=== PATIENT | female | born 1935 | race Caucasian/White ===

== ENCOUNTER 2016-11-04 12:45 | Inpatient (IN) | payer MEDICARE, OTHER ==
[~2016-11-04] VITALS: Ht 162.5 cm; Wt 68.9 kg
--- NOTE | ~2016-11-04 | CON ---
[place], [place] REPORT OF CONSULTATION NAME: ISABELLA BAH UNIT #: [id number] ROOM: 406 DOCTOR: JAVON MCCRAY MD,STACY BIRTHDATE: [birth year] DOS: 11/05/2016 The patient ____ as per consultation and transferred to another facility before assessment on 11/05/2016. STACY ALEJANDRO MD CM:CONSTR:REPORT OF CONSULTATION 0931 11/05/16 1034 interface
[~2016-11-04 12:45] MED LIST: AUGMENTIN 875 M1 TAB PO; BENADRYL50 MG PO; DULE1ARO INH; DUONEB 3 MG/3 ML3 M1 NEB; FUROSEMIDE40 MG PO; KLOR-CON SPRIN10 MEQ PO; LEVOTHYROXINE0.1 MG PO; LINZESS145 MC1 PO; LIPITOR20 MG PO; LISINOPRIL10 M1 PO; MEDROL DOSEPAK4 MG PO; METOPROLOL TART50 M1 PO; NORVASC5 MG PO; PREDNISONE10 MG PO; SERTRALINE HYDR50 MG PO; SIMVASTATIN40 MG PO; TOPROL XL100 MG PO; VITAMIN D32000 UNIT PO; XARE20MG PO
[2016-11-04] MEDS ORDERED: METOPROLOL SUC100 M1 PO (12:58)
[2016-11-04 13:16] LABS: BASO % 0.4 % (0.0-1.0); EOS % 0.3 % (1.0-4.0); HEMATOCRIT 41.6 % (37.0-47.0); HEMOGLOBIN 13.4 g/dl (12.0-16.0); LYMPH # 1.4 10*3/uL (1.3-4.4); LYMPH % 13.8 % (27.0-41.0); MEAN CELL VOLUME 98.3 fl (81.0-99.0); MEAN CORPUSCULAR HGB 31.7 pg (27.0-31.0); MEAN CORPUSCULAR HGB CONC 32.2 g/dl (33.0-37.0); MEAN PLATELET VOLUME 10.1 fl (9.6-12.3); NEUT # 7.5 10*3/uL (2.3-7.9); NEUT % 75.3 % (47.0-73.0); PLATELET COUNT AUTOMATED 249 10*3/uL (130-400); RED BLOOD COUNT 4.23 10*6/uL (4.10-5.10)
[2016-11-04 13:25] LABS: INTERNATIONAL NORM RATIO 1.2 (2.0-3.5); PROTHROMBIN TIME 13.4 SECONDS (9.0-12.4)
[2016-11-04 13:33] LABS: ALBUMIN 3.4 gm/dl (3.1-4.5); ALKALINE PHOSPHATASE 63 U/L (45-117); BUN 12 mg/dl (7-24); C-REACTIVE PROTEIN 7.28 MG/DL (0-0.3); CARBON DIOXIDE 25 mmol/L (21-32); CHLORIDE 104 mmol/L (98-107); CKMB 3.6 ng/ml (0.5-3.6); CPK 130 U/L (26-192); EST GLOM FILT AFRICAN AMERICAN > 60 ml/min; GLUCOSE 138 mg/dL (65-99); POTASSIUM 2.8 mmol/L (3.5-5.1); SGOT/AST 25 IU/L (3-35); SGPT/ALT 16 U/L (12-78); SODIUM 144 mmol/L (136-145); TOTAL PROTEIN 6.8 gm/dL (6.4-8.2)
[2016-11-04 13:36] LABS: TROPONIN I 0.241 ng/ml (<0.045)
[2016-11-04 15:13] LABS: LA>2 REFLEX 2 HR DRAW NOW
[2016-11-04 15:56] LABS: LA>2 RFLX FOLLOW UP AT 2 HRS 2.5 mmol/L (0.4-2.0)
[2016-11-04 17:49] LABS: LA>2 REFLEX 4 HR DRAW NOW
[2016-11-04 18:20] LABS: CKMB 3.2 ng/ml (0.5-3.6)
[2016-11-04 18:21] LABS: TROPONIN I 0.219 ng/ml (<0.045)
[2016-11-04] MEDS ORDERED: LASIX40 MG PO (18:30)
[2016-11-05 00:46] LABS: CKMB 4.2 ng/ml (0.5-3.6)
[2016-11-05 00:50] LABS: TROPONIN I 0.129 ng/ml (<0.045)
== END 2016-11-05 01:34 | disposition short-term general hospital (02) | DRG 871 ==
LOC: ED 12:45 → EDHOLD 14:26 → 4E 14:47
PROVIDERS: Emergency Medicine; Hospitalist
DX: A41.9 Sepsis, unspecified organism (principal); J96.00 Acute respiratory failure, unspecified whether with hypoxia or hypercapnia; I61.8 Other nontraumatic intracerebral hemorrhage; I11.0 Hypertensive heart disease with heart failure; J18.9 Pneumonia, unspecified organism; S09.90XA Unspecified injury of head, initial encounter; I50.9 Heart failure, unspecified; J44.0 Chronic obstructive pulmonary disease with (acute) lower respiratory infection; J44.1 Chronic obstructive pulmonary disease with (acute) exacerbation; I48.0 Paroxysmal atrial fibrillation; R65.20 Severe sepsis without septic shock; R29.6 Repeated falls; Z96.1 Presence of intraocular lens; E87.6 Hypokalemia; E78.5 Hyperlipidemia, unspecified; Z90.710 Acquired absence of both cervix and uterus; Z98.49 Cataract extraction status, unspecified eye; Z87.891 Personal history of nicotine dependence; Z81.1 Family history of alcohol abuse and dependence; Z83.3 Family history of diabetes mellitus; Z79.899 Other long term (current) drug therapy; I25.2 Old myocardial infarction

== ENCOUNTER → 2017-01-05 | Outpatient (CLI) | payer MEDICARE, OTHER ==
[~2017-01-05] MED LIST changes: +LASIX40 MG PO; +METOPROLOL SUC100 M1 PO
== END | disposition home or self-care (01) ==
LOC: CT 12:36
DX: K40.90 Unilateral inguinal hernia, without obstruction or gangrene, not specified as recurrent (principal); K42.9 Umbilical hernia without obstruction or gangrene; I51.7 Cardiomegaly; Z90.710 Acquired absence of both cervix and uterus

== ENCOUNTER → 2017-02-02 | Outpatient (CLI) | payer MEDICARE, OTHER | END | disposition home or self-care (01) | LOC: US 12:23 | DX: N28.1 Cyst of kidney, acquired (principal); N32.89 Other specified disorders of bladder ==

== ENCOUNTER → 2017-02-04 | Outpatient (CLI) | payer MEDICARE, OTHER | END | disposition home or self-care (01) | LOC: CARD 15:43 | DX: I08.1 Rheumatic disorders of both mitral and tricuspid valves (principal); I42.9 Cardiomyopathy, unspecified; I48.0 Paroxysmal atrial fibrillation; I21.4 Non-ST elevation (NSTEMI) myocardial infarction; I49.9 Cardiac arrhythmia, unspecified ==

== ENCOUNTER → 2017-03-24 | Outpatient (CLI) | payer MEDICARE, OTHER ==
[2017-03-24 13:58] LABS: BILIRUBIN NEGATIVE (NEGATIVE); BLOOD TRACE-INTACT (NEGATIVE); CLARITY CLEAR (CLEAR); COLOR YELLOW (YELLOW); GLUCOSE NEGATIVE (NEGATIVE); KETONE TRACE (NEGATIVE); LEUKO ESTERASE NEGATIVE (NEGATIVE); NITRITE NEGATIVE (NEGATIVE); PROTEIN TRACE (NEGATIVE); UROBILINOGEN 0.2 E.U./dl (0.2-1.0)
[2017-03-24 14:07] LABS: BASO # 0.1 10*3/uL (0.0-0.1); BASO % 0.8 % (0.0-1.0); EOS # 0.3 10*3/uL (0.0-0.4); EOS % 2.3 % (1.0-4.0); HEMATOCRIT 41.9 % (37.0-47.0); HEMOGLOBIN 13.4 g/dl (12.0-16.0); IG # 0.1 10*3/uL (0.0-0.1); LYMPH # 3.1 10*3/uL (1.3-4.4); LYMPH % 28.8 % (27.0-41.0); MEAN CELL VOLUME 98.6 fl (81.0-99.0); MEAN CORPUSCULAR HGB 31.5 pg (27.0-31.0); MEAN PLATELET VOLUME 10.1 fl (9.6-12.3); MONO # 0.8 10*3/uL (0.1-1.0); MONO % 7.3 % (3.0-9.0); NEUT # 6.4 10*3/uL (2.3-7.9); NEUT % 60.1 % (47.0-73.0); PLATELET COUNT AUTOMATED 293 10*3/uL (130-400); RED BLOOD COUNT 4.25 10*6/uL (4.10-5.10); RED CELL DISTRI WIDTH 14.6 % (0-14.5); WHITE BLOOD COUNT 10.7 10*3/uL (4.8-10.8)
[2017-03-24 14:09] LABS: BACTERIA TRACE; RBC 0-2 rbc/hpf (0-2); WBC 0-2 wbc/hpf (0-5)
[2017-03-24 14:16] LABS: URINE TP/CRE RATIO 0.1 (<0.21)
[2017-03-24 14:28] LABS: ALBUMIN 3.6 gm/dl (3.1-4.5); BILIRUBIN, TOTAL 0.5 mg/dl (0.2-1.0); MAGNESIUM 2.2 mg/dL (1.5-2.1); PHOSPHOROUS 2.9 mg/dL (2.5-4.9); TOTAL PROTEIN 7.3 gm/dL (6.4-8.2); URIC ACID 4.2 mg/dL (2.6-6.0)
[2017-03-24 14:56] LABS: VITAMIN D, 25-HYDROXY 21.7 ng/mL (30-100)
[2017-03-24 14:57] LABS: PTH INTACT 81.1 pg/mL (14.0-72.0)
== END | disposition home or self-care (01) ==
LOC: LAB 13:22
PROVIDERS: Internal Medicine Nephrology
DX: I12.9 Hypertensive chronic kidney disease with stage 1 through stage 4 chronic kidney disease, or unspecified chronic kidney disease (principal); N18.3 Chronic kidney disease, stage 3 (moderate); E87.6 Hypokalemia; N17.9 Acute kidney failure, unspecified

== ENCOUNTER → 2017-12-30 | Day surgery (SDC) | payer MEDICARE, OTHER ==
[2017-12-27 11:53] LABS: BILIRUBIN NEGATIVE (NEGATIVE); BLOOD NEGATIVE (NEGATIVE); CLARITY CLOUDY (CLEAR); COLOR YELLOW (YELLOW); GLUCOSE NEGATIVE (NEGATIVE); KETONE TRACE (NEGATIVE); LEUKO ESTERASE 1+ (NEGATIVE); NITRITE POSITIVE (NEGATIVE); PH 5.5 (5.0-9.0); SPECIFIC GRAVITY 1.025 (1.005-1.030); UROBILINOGEN 0.2 E.U./dl (0.2-1.0)
[2017-12-27 11:56] LABS: BASO # 0.1 10*3/uL (0.0-0.1); BASO % 0.6 % (0.0-1.0); EOS # 0.3 10*3/uL (0.0-0.4); EOS % 3.1 % (1.0-4.0); HEMATOCRIT 42.6 % (37.0-47.0); HEMOGLOBIN 13.4 g/dl (12.0-16.0); LYMPH # 2.2 10*3/uL (1.3-4.4); LYMPH % 24.7 % (27.0-41.0); MEAN CELL VOLUME 99.1 fl (81.0-99.0); MEAN CORPUSCULAR HGB 31.2 pg (27.0-31.0); MEAN CORPUSCULAR HGB CONC 31.5 g/dl (33.0-37.0); MONO # 0.6 10*3/uL (0.1-1.0); MONO % 7.1 % (3.0-9.0); NEUT # 5.6 10*3/uL (2.3-7.9); NEUT % 64.3 % (47.0-73.0); PLATELET COUNT AUTOMATED 288 10*3/uL (130-400); RED CELL DISTRI WIDTH 13.8 % (0-14.5); WHITE BLOOD COUNT 8.7 10*3/uL (4.8-10.8)
[2017-12-27 12:18] LABS: POTASSIUM 4.2 mmol/L (3.5-5.1)
[2017-12-27 12:44] LABS: BACTERIA 4+; WBC 16-20 wbc/hpf (0-5)
[~2017-12-30] VITALS: Ht 162.5 cm; Wt 70.3 kg
[~2017-12-30] MED LIST changes: +AMIODARONE HCL200 MG PO; +APRESOLINE25 MG PO; +ASPIRIN81 M1 PO; +BREO ELLIPTA 11 EACH INH; +LISINOPRIL20 MG PO; +NORCO 5-325 TA1 EACH PO; +OMEPRAZOLE D/R20 MG PO; +PROAIR HFA8.5 GM INH; +VITAMIN C500 M4 PO; +VITAMIN D35000 UNIT PO
--- NOTE | ~2017-12-30 | PROC NOTE ---
[place], [place] PROCEDURE NOTE [id number] UNIT #: [id number] ROOM: DOCTOR: REMY TRIPLETT MD BIRTHDATE: [birth year] DOS: 12/30/2017 PREOPERATIVE DIAGNOSIS: Right forearm skin lesion. POSTOPERATIVE DIAGNOSIS: Right forearm skin lesion. PROCEDURE: Excision of right forearm skin lesion. SURGEON: Remy Triplett MD INSPECTOR RAG SORTING: CARO. ANESTHESIA: MAC with local. INDICATIONS: This is an 82-year-old lady who has got a long-standing lesion on the right forearm, just proximal to the wrist joint, who is here for the above-mentioned procedure. The procedure and its complications were explained to the patient in detail preoperatively. Complications that were discussed included but were not limited to bleeding, infection, hematoma/seroma/abscess formation and damage to underlying vital structures. She agreed to proceed. DESCRIPTION OF PROCEDURE: After identifying the patient, the patient was brought to the operating suite and laid in the supine position. After IV sedation was administered, a timeout procedure was called and local anesthesia was infiltrated in the line of the proposed incision. Prior to all this incision was marked with at least 1 to 2 mm margin around the lesion. Skin incision was made and deepened in layers. The lesion was excised in its entirety and sent for histopathological diagnosis. After adequate orientation, the specimen was performed. Thereafter, the closure of the skin was done in a transverse fashion. This was done by closing the subcutaneous tissue with 3-0 Vicryl in an interrupted fashion and the skin edges were approximated with the help of 4-0 nylon in an interrupted mattress fashion. Dressing was placed. The patient tolerated the procedure well and was brought back to the recovery room in stable fashion. There were no complications. Dr. Remy Triplett, the attending physician, was present throughout the operating case. Remy Triplett MD CM:PROCNOTE:PROCEDURE NOTE [id number] REMY TRIPLETT MD
[2017-12-30 10:15] VITALS: BP 164/61
[2017-12-30 11:34] VITALS: BP 138/66
[2017-12-30 11:45] VITALS: BP 130/82
[2017-12-30 12:04] VITALS: BP 138/66
== END | disposition home or self-care (01) ==
LOC: SDC 12-27 08:45
PROVIDERS: Surgery
DX: C44.612 Basal cell carcinoma of skin of right upper limb, including shoulder (principal); I25.2 Old myocardial infarction; I10 Essential (primary) hypertension; J44.9 Chronic obstructive pulmonary disease, unspecified; K21.9 Gastro-esophageal reflux disease without esophagitis; F41.9 Anxiety disorder, unspecified; F32.9 Major depressive disorder, single episode, unspecified; Z87.891 Personal history of nicotine dependence; Z90.710 Acquired absence of both cervix and uterus; Z79.899 Other long term (current) drug therapy; E07.89 Other specified disorders of thyroid; E78.00 Pure hypercholesterolemia, unspecified

== ENCOUNTER → 2018-02-11 | Outpatient (CLI) | payer MEDICARE, OTHER ==
[2018-02-11 11:14] LABS: BASO # 0.1 10*3/uL (0.0-0.1); BASO % 0.7 % (0.0-1.0); EOS # 0.3 10*3/uL (0.0-0.4); EOS % 2.7 % (1.0-4.0); HEMATOCRIT 39.5 % (37.0-47.0); HEMOGLOBIN 12.5 g/dl (12.0-16.0); LYMPH # 2.3 10*3/uL (1.3-4.4); LYMPH % 23.4 % (27.0-41.0); MEAN CELL VOLUME 98.8 fl (81.0-99.0); MEAN CORPUSCULAR HGB 31.3 pg (27.0-31.0); MEAN CORPUSCULAR HGB CONC 31.6 g/dl (33.0-37.0); MEAN PLATELET VOLUME 10.4 fl (9.6-12.3); MONO # 0.8 10*3/uL (0.1-1.0); MONO % 8.3 % (3.0-9.0); NEUT # 6.2 10*3/uL (2.3-7.9); NEUT % 64.4 % (47.0-73.0); PLATELET COUNT AUTOMATED 281 10*3/uL (130-400); RED CELL DISTRI WIDTH 14.1 % (0-14.5); WHITE BLOOD COUNT 9.6 10*3/uL (4.8-10.8)
[2018-02-11 11:38] LABS: ALBUMIN 3.8 gm/dl (3.1-4.5); CREATININE 1.9 mg/dL (0.55-1.02); TOTAL PROTEIN 7.4 gm/dL (6.4-8.2)
[2018-02-11 11:44] LABS: THYROID STIM HORMONE (HS) 1.74 uIU/ml (0.358-4.75)
== END | disposition home or self-care (01) ==
LOC: LAB 10:42
PROVIDERS: Family Medicine
DX: E78.00 Pure hypercholesterolemia, unspecified (principal); F03.90 Unspecified dementia, unspecified severity, without behavioral disturbance, psychotic disturbance, mood disturbance, and anxiety

== ENCOUNTER → 2018-02-17 | Outpatient (CLI) | payer MEDICARE, OTHER | END | disposition home or self-care (01) | LOC: RAD 15:23 | DX: J44.1 Chronic obstructive pulmonary disease with (acute) exacerbation (principal) ==

== ENCOUNTER 2018-04-24 11:20 | Inpatient (IN) | payer MEDICARE, OTHER ==
[2018-04-24] VITALS (28 sets, daily range): BP systolic 80–150; BP diastolic 27–100
[~2018-04-24] VITALS: Ht 160 cm; Wt 65.8 kg
--- NOTE | ~2018-04-24 | EKG ---
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
--- NOTE | ~2018-04-24 | PR ---
[place], [place] PROGRESS NOTE NAME: [id number] UNIT #: [id number] ROOM: [facility] DOCTOR: CORNELIO SUAREZ MD BIRTHDATE: [birth year] DOS: 04/25/2018 SUBJECTIVE: The patient was seen today on 04/25/2018 at her bedside in the intensive care unit. She is an 82-year-old woman, who presented to the hospital after a fall with weakness and increased dyspnea, lasting the last 3 days. The patient was tachypneic and dyspneic on admission. She was also noted to be markedly bradycardic with a heart rate of about 30. Her rhythm appeared to be junctional. Atropine did not provide any relief. She was also noted to be in acute renal failure with a potassium of 6. She was admitted to the hospital and treated with BiPAP for her tachypnea and dyspnea. Her potassium was treated with glucose, insulin, bicarbonate and calcium. The bradycardia was treated with dobutamine. I felt that the bradycardia was probably due to a combination of her chronic amiodarone therapy along with beta tabatha therapy as well as her conduction system disease and possibly exacerbated by her acute renal failure. With dobutamine, her heart rate narendra to the 40 and 50 range and she remained hemodynamically stable, although her renal functions did not improve. This morning, 24 hours after her last dose of beta tabatha, her heart rate has improved to about 80. She was evaluated by Nephrology, who believed that she may require acute dialysis and therefore, she is being transferred to [facility] for further care. PHYSICAL EXAMINATION: VITAL SIGNS: Today, her pulse is 78 and regular, blood pressure is 122/65. She is afebrile. NECK: Supple. She has mild jugular distention with hepatojugular reflux. Carotids are full. LUNGS: Respirations are unlabored. She has decreased breath sounds at the bases. HEART: Has a regular rhythm. ABDOMEN: Soft and normally active. EXTREMITIES: Showed trace ankle edema. IMPRESSION: 1. Severe bradycardia, likely due to the combination of amiodarone and beta tabatha therapies, exacerbated by acute renal failure and hyperkalemia. 2. Metabolic acidosis. 3. Acute renal failure. 4. Hyperkalemia. 5. History of paroxysmal atrial fibrillation. 6. History of essential hypertension. 7. Dementia. PLAN: We will wean her off the dobutamine as tolerated by her heart rate. She is being transferred to [facility] for further management of her renal problems. For now, I would withhold beta blockers and amiodarone. We thank the hospitalist physicians for asking our advice regarding her care. [place], [place] PROGRESS NOTE NAME: ISABELLA BAH UNIT #: [id number] ROOM: [facility] DOCTOR: CORNELIO SUAREZ MD BIRTHDATE: [birth year] CORNELIO SUAREZ MD CM:PNTRANS [id number] CORNELIO SUAREZ MD 04/25/18 1731 interface
--- NOTE | ~2018-04-24 | CON ---
[place], [place] REPORT OF CONSULTATION NAME: ISABELLA BAH UNIT #: [id number] ROOM: [facility] DOCTOR: STACY HARRIS MD BIRTHDATE: [birth year] DOS: 04/24/2018 PULMONARY CONSULTATION, EVALUATION AND MANAGEMENT CONSULTATION REQUESTED BY: Dr. Dean, Hospitalist Services. REASON FOR CONSULTATION: To assess the patient for recurrent acute respiratory failure. HISTORY OF PRESENT ILLNESS: This is an 82-year-old white female patient, who was admitted to the hospital under care of Dr. Dean. The patient brought to the hospital with the symptoms of having generalized weakness and fatigue. The patient was noted with symptoms of shortness of breath. The patient was noted with change in mental status as well. Arterial blood gas that was done in the Emergency Room. The patient stated on the BiPAP, setting of 12/. The patient started to have improvement in the mentation. She was noted awake and alert this morning. The patient admitted to Intensive Care Unit. The patient was also noted to have profound bradycardia in the Emergency Room as well. She has been noted with use of beta blockers as well as the amiodarone. She has not been reporting any symptoms of chest pain. The patient denies symptoms of wheezing. There were symptoms of hemoptysis. REVIEW OF SYSTEMS: CONSTITUTIONAL SYMPTOMS: Fatigue and tiredness noted. Absent of fever or chills. EYES: Denies any burning, redness, or tenderness. EARS, NOSE, THROAT SYMPTOMS: Denies sore throat, hoarseness, otalgia, postnasal drainage or epistaxis. CARDIOVASCULAR: Denies anginal pain, edema or pain of lower extremities. GASTROINTESTINAL: Denies dysphagia, nausea, vomiting, diarrhea, abdominal pain, hematemesis, melena, or hematochezia. GENITOURINARY: No dysuria, suprapubic pain or hematuria. MUSCULOSKELETAL: No acute joint pain, redness, tenderness, or dysphagia. CENTRAL NERVOUS SYSTEM: Denies dizziness, headache, diplopia, or syncopal episodes. Remaining systems were reviewed, they were noted all negative. PAST MEDICAL HISTORY: Noted with the recent hospitalization. The patient is hospitalized. Discharged the patient on 03/30/2018. The patient was treated in this hospital, at that time for acute tracheobronchitis with exacerbation of COPD and bronchial asthma at that time. Past medical history for the patient was known with history of: 1. Bronchial asthma. 2. COPD. 3. History of hypothyroidism. 4. Non-ST segment elevation myocardial infarct in 2017. 5. History of essential hypertension. 6. Chronic atrial fibrillation. 7. History of chronic constipation. [place], [place] REPORT OF CONSULTATION NAME: ISABELLA BAH UNIT #: [id number] ROOM: [facility] DOCTOR: JAVON MCCRAY MD,STACY BIRTHDATE: [birth year] 8. Past history of pneumonia as well. 9. Gastroesophageal reflux. 10. General anxiety disorder and depression. PAST SURGICAL HISTORY: 1. Cardiac catheterization. 2. Fibrobronchoscopy that was done in 03/2018 admission. That was a therapeutic bronchoscopy. SOCIAL HISTORY: The patient is , has 2 children, lives at home, has a known history of tobacco use since teenager, pack of cigarettes per day until 30 years ago. No history of alcohol use or illicit drug use. FAMILY HISTORY: The patient's father at 64 years old, complication of chronic alcohol use. Mother at age of 62 years with complication of accident. CURRENT MEDICATIONS: The patient was noted with use of Protonix, dobutamine just ordered for this patient, IV Solu-Medrol 60 mg every 8 hours, DuoNeb every 4 hours. DRUG ALLERGIES: The patient noted for no known drug allergies. PHYSICAL EXAMINATION: GENERAL: An 82-year-old female, who has been noted quite comfortable at this time with use of the BiPAP in the Intensive Care Unit. Height of 5 feet 2 inches, weight of 145 pounds. VITAL SIGNS: Vital signs on the patient which have been recorded shows the respiratory rate noted at 31-20. The heart rate 42-48, blood pressure 150/100 and 136/61. Pulse oxygen saturation of the patient was noted on the BiPAP 40% oxygen as 99% saturation. The pulse ox saturation noted on 4 liters nasal cannula as 88% saturation. HEENT: Examination shows head was atraumatic. Eyes nonicterus. NECK: Supple. CARDIOVASCULAR: S1, S2 is audible with bradyarrhythmia. LUNGS: Noted with general reduction of the breath sounds bilaterally. ABDOMEN: Soft, flat, nontender. Bowel sounds present. EXTREMITIES: Without any acute edema. CENTRAL NERVOUS SYSTEM: No focal deficit. SKIN: Visible skin, no lesions or rashes. LABORATORY DATA: Arterial blood gas 40% oxygen, PEEP of 7.27, pCO2 of 35, pO2 of 149. There were done on the BiPAP 40% oxygen. CBC of 04/24/2018, WBC count 12.3, hemoglobin 9.5, hematocrit 30.9, platelet count 197,000. PT/INR 1.3, PTT of 32.3. Lactic acid noted 1.6. CMP of the patient of 04/24/2018, BUN 62, creatinine 4.67. Glucose 149. Potassium 6.0. CO2 of 18. The chest x-ray one view that was done in the Emergency Room was also reviewed. Appears to be normal chest x-ray except hyperinflation. There were no acute pulmonary infiltration. TSH level noted as normal. Urinalysis that was done noted 2+ bacteria. [place], [place] REPORT OF CONSULTATION NAME: ISABELLA BAH UNIT #: [id number] ROOM: [facility] DOCTOR: STACY HARRIS MD BIRTHDATE: [birth year] IMPRESSION: 1. The patient developed acute kidney injury at this time. Possibility of prerenal, acute tubular necrosis would be considered. 2. The patient with acute bradyarrhythmia, combination of the patient's home medication with use of beta blockers and amiodarone and possibly related to hyperkalemia combination. The patient has been noted hemodynamically stable, does not show signs of hypotension. Certainly rule out a myocardial infarction because of bradyarrhythmia as well. 3. The patient with chronic obstructive pulmonary disease with acute exacerbation. 4. Acute respiratory failure. The patient with hypoxia and metabolic acidosis. Metabolic acidosis resulting from acute kidney injury as well. 5. Possible urinary tract infection. There were no signs of active severe sepsis noted; however, urinary tract infection would be considered and to be excluded with the cultures. 6. History of known chronic obstructive pulmonary disease and bronchial asthma. PLAN OF MANAGEMENT: The patient has already been managed for hyperkalemia, received the D50 insulin as well as calcium chloride in the Emergency Room. She has been just started on dobutamine by Dr. Lundy. Repeat BMP was ordered for the patient to reassess the change in potassium. Monitor kidney functions. Nephrology service consideration will be obtained as well. Deep venous thrombosis prophylaxis. The patient will be given in the form of the heparin sulfate. Reduce the dose of Solu-Medrol for the patient at this time as the high dose is not necessary because of lack of significant severe wheezing. Antibiotic adjustment has been ordered and discontinuation of the antibiotic, but start the patient on Rocephin for the gram-negative coverage. The patient with urinary tract infection, on doxycycline for gram-positive coverage. Other supportive therapy, plan of management and care plan and other treatment and therapy to be continued accordingly. Continue to monitor bradyarrhythmia unless hemodynamic compromise and conservative treatment will be continued. Certainly, myocardial infarction would be excluded. The patient has already been assessed and orders were placed by Dr. Lundy for the medical record of bradyarrhythmias. Follow the recommendation by Dr. Lundy. Assessment and management was also discussed with Dr. Dean primary care attending of this patient. Other supportive plan of management to be continued for the patient as well. Additional treatment changes will be made based on progression of the illness. Thanks for allowing me to participate in the care of this patient. [place], [place] REPORT OF CONSULTATION NAME: ISABELLA BAH UNIT #: [id number] ROOM: [facility] DOCTOR: STACY HARRIS MD BIRTHDATE: [birth year] STACY ALEJANDRO MD CM:CONSTR:REPORT OF CONSULTATION 1427 05/02/18 1102 interface
--- NOTE | ~2018-04-24 | PR ---
[place], [place] PROGRESS NOTE NAME: ISABELLA BAH UNIT #: [id number] ROOM: [facility] DOCTOR: JAVON MCCRAY MD,STACY BIRTHDATE: [birth year] DOS: 04/25/2018 PULMONARY PROGRESS NOTE SUBJECTIVE: She has been noted comfortable at this time, resting in the bed, noted with intermittent wheezing with nonproductive cough and shortness of breath. Using the BiPAP as ordered, suggestive of medical management of respiratory failure. Denies symptoms of hemoptysis, fever or chills. She denies symptoms of nausea, vomiting or headache. General weakness, fatigue were noted. She has been continued on intravenous dobutamine and the medication such a beta tabatha, amiodarone remains on hold. The bradyarrhythmia seemed to be better. OBJECTIVE: VITAL SIGNS: Normal temperature, respiratory rate 22, heart rate of 78. At the present time with a normal sinus rhythm. The blood pressure noted 130/51 to 122/65. Pulse ox saturation on 3 liters nasal cannula 95% saturation. HEENT: Examination shows head was atraumatic. Eyes nonicterus. NECK: Supple. CARDIOVASCULAR: S1, S2 is audible. LUNGS: Without any crackles. Decreased breath sounds of the patient and mild to moderate expiratory wheezing. ABDOMEN: Soft, nontender. EXTREMITIES: Shows no significant edema. SKIN: Visible skin, no lesions or rashes. CENTRAL NERVOUS SYSTEM: Cranial nerves 2-12 intact. No focal deficit. MUSCULOSKELETAL: Without any acute deformities. LABORATORY DATA: CBC today, hemoglobin 10.5, hematocrit 25.2, platelet count normal, WBC count normal, 95% segmented neutrophils. The CMP of the patient this morning, BUN 62, creatinine 4.74. Glucose 104. Potassium is decreased to 5.5. CO2 was noted as 20. IMPRESSION: 1. Acute hyperkalemia with the bradyarrhythmia, multifactorial secondary to beta blockers and hyperkalemia. 2. Severe acute progressive acute kidney injury as well. 3. Anemia without evidence of active gastrointestinal bleeding. 4. The patient with acute exacerbation of chronic obstructive pulmonary disease. 5. Acute on chronic hypercapnic and hypoxic respiratory failure as well. The arterial blood gas on 4 liters today were noted, pH of 7.30, pCO2 72, pO2 150. PLAN OF MANAGEMENT: Continuation of bronchodilators, oxygen supplementation, Solu-Medrol 30 mg b.i.d. as previously. Bronchodilators and the antibiotics. Other additional treatment changes made based on progression of illness. The patient has been advised for transfer to [facility] [place] about the Nephrology services. The arrangement of transfer are noted in progress. In the meantime, no other change in the treatment needs to be done. The dobutamine was planned to be gradually weaned off today per Cardiology Services because of the [place], [place] PROGRESS NOTE NAME: ISABELLA BAH UNIT #: [id number] ROOM: [facility] DOCTOR: STACY HARRIS MD BIRTHDATE: [birth year] improvement in the bradyarrhythmia. STACY ALEJANDRO MD CM:PNTRANS 1525 [id number] STACY MCCRAY MD 04/25/18 1746 interface
--- NOTE | ~2018-04-24 | EKG ---
[place], [place] ELECTROCARDIOGRAM REPORT NAME: ISABELLA BAH UNIT #: [id number] ROOM: [facility] DOCTOR: DEACON DRAFT REPORT BIRTHDATE: [birth year] [facility] Test Date: 2018-04-24 Test Time: 11:32:20 Pat Name: ISABELLA BAH Department: Room: 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1935 Requested By: MELANIE EVANGELISTA Order Number: [id number] Reading MD: Chapito Lundy MD Measurements Intervals [place] Rate: 32 P: PA: QRS: 92 QRSD: 118 T: 46 QT: 633 QTc: 462 Interpretive Statements Junctional rhythm with underlying atrial fibrillation Nonspecific intraventricular conduction delay Compared to ECG 03/31/2018 11:58:30 Junctional rhythm now present Sinus rhythm no longer present Left ventricular hypertrophy no longer present Early repolarization no longer present Electronically Signed On 04-24-2018 13:48:50 PDT by Chapito Lundy MD CM:EKGRPT:ELECTROCARDIOGRAM REPORT [id number] [id number] MELANIE WORTHY DRAFT REPORT MELANIE EVANGELISTA MD
--- NOTE | ~2018-04-24 | CON ---
[place], [place] REPORT OF CONSULTATION NAME: ISABELLA BAH UNIT #: [id number] ROOM: [facility] DOCTOR: CORNELIO SUAREZ MD BIRTHDATE: [birth year] DOS: 04/24/2018 CARDIOLOGY CONSULTATION REASON FOR CONSULTATION: Bradycardia. HISTORY OF PRESENT ILLNESS: This is one of multiple hospitalizations for the patient, who is an 82-year-old woman. I saw her at her bedside in the intensive care unit today 04/24/2018. She presented to the hospital with a fall, weakness and increased dyspnea for the last 3 days. The patient was very tachypneic on admission to the ER. She was also noted to be markedly bradycardic with a pulse of around 30. Her rhythm appeared to be junctional or possibly atrial fibrillation with a very slow ventricular response. She was given several doses of atropine without much effect. She was also noted to be in renal failure with potassium of 6, BUN of 62 and a creatinine of 4.67. This was a marked increase from her BUN of 26 on 04/01/2018 and creatinine of 1.20 on 04/01/2018. The patient is currently on a BiPAP treatment and is feeling better. She is confused and somewhat restless. She denies chest pain or palpitations. PAST MEDICAL HISTORY: Includes history of coronary artery disease, paroxysmal atrial fibrillation, sedentary lifestyle, previous myocardial infarction, obstructive lung disease with recent episode of pneumonia, essential hypertension, hyperlipidemia, paroxysmal atrial fibrillation managed with amiodarone, hypothyroidism and dementia. MEDICATIONS PRIOR TO ADMISSION: Albuterol by inhaler p.r.n., Breo Ellipta inhaler p.r.n., amiodarone 200 mg daily, ascorbic acid 500 mg daily, aspirin 81 mg daily, atorvastatin 40 mg daily, cholecalciferol 5000 units daily, ciprofloxacin 500 mg twice a day, hydralazine 25 mg twice a day, levothyroxine 100 mcg daily, Linzess 145 mcg daily, lisinopril 20 mg b.i.d., metoprolol 50 mg daily, omeprazole 20 mg daily, potassium 10 mEq daily, prednisone 10 mg daily, spironolactone 25 mg daily. There is a question whether or not she is currently on rivaroxaban. She has been on this in the past, but it was stopped within the last several months because of concerns regarding falling. ALLERGIES: The patient has no known drug allergies. FAMILY HISTORY: Her father at age 64 from alcohol abuse. Her mother at age 63 from fall. REVIEW OF SYSTEMS: The patient denies diplopia or loss of vision. She does complain of weakness and dyspnea. She denies nausea or vomiting. She denies palpitations. She does admit to lightheadedness. She denies fevers, chills or sweats. She does state that she has a poor appetite. She denies change in bowel or bladder habits. She denies bleeding from any sites. She denies any peripheral edema. The remainder of the review of systems is negative except as noted above. SOCIAL HISTORY: The patient is not currently a smoker. She was a smoker as a [place], [place] REPORT OF CONSULTATION NAME: ISABELLA BAH UNIT #: [id number] ROOM: [facility] DOCTOR: CORNELIO SUAREZ MD BIRTHDATE: [birth year] teenager, but quit 30 years ago. She denies alcohol use. PHYSICAL EXAMINATION: GENERAL: The patient is a slender, elderly white female, who is awake and alert. VITAL SIGNS: Pulse is 30 and regular, blood pressure 120/60. She is afebrile. HEENT: Normocephalic and atraumatic. Extraocular muscles are intact. Sclerae are clear. Pupils are equal, round and react to light. The oral mucosa is moist. Tongue is midline. NECK: Supple. She has no jugular distention or hepatojugular reflux. Carotids are full. LUNGS: Respirations are tachypneic. She is breathing with CPAP. She does have decreased breath sounds at the bases. CARDIOVASCULAR: Her heart has a regular slow rhythm. She has no murmurs or gallops. The PMI is not displaced. There is no precordial heave, lift or thrill. ABDOMEN: Soft and normally active without masses, organomegaly or bruits. EXTREMITIES: Showed no edema. Peripheral pulses are diminished, but palpable in the feet. IMPRESSIONS: 1. Severe bradycardia, likely due to a combination of her amiodarone therapy and beta-tabatha therapy, exacerbated by her acute renal failure and hyperkalemia. 2. Metabolic acidosis. 3. Acute renal failure. 4. Hyperkalemia. 5. Paroxysmal atrial fibrillation. 6. Dementia. 7. History of essential hypertension. 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 I will be giving her an amp of bicarbonate in order to help decrease her potassium further. We will also be starting her on a dobutamine drip for her rate. We will withhold all heart rate slowing medications. For now, hopefully, we will be able to avoid the use of a pacemaker or transthoracic pacemaker. I thank the hospitalist physicians for asking our advice regarding the patient's care. [place], [place] REPORT OF CONSULTATION NAME: ISABELLA BAH UNIT #: [id number] ROOM: [facility] DOCTOR: CORNELIO SUAREZ MD BIRTHDATE: [birth year] CORNELIO SUARZE MD CM:CONSTR:REPORT OF CONSULTATION 1405 04/24/18 2147 interface
[~2018-04-24 11:20] MED LIST changes: +ALDACTONE25 MG PO; +CIPROFLOXACIN500 M4 PO; -LEVOTHYROXINE0.1 MG PO; +LEVOTHYROXINE100 MC1 PO; +LIPITOR40 MG PO; +PRINIVIL10 MG PO; +SERTRALINE HYD100 MG PO; -SERTRALINE HYDR50 MG PO; +VITAMIN D32000 UNI1 PO; -VITAMIN D35000 UNIT PO
[2018-04-24 11:47] LABS: ARTERIAL BLOOD GAS PCO2 35.1 mmHg (35-45); ARTERIAL BLOOD GAS PH 7.277 (7.35-7.45)
[2018-04-24 11:48] LABS: ABG BASE EXCESS -9.7 mmol/L (-2.0-2.0)
[2018-04-24 11:53] LABS: BASO % 0.2 % (0.0-1.0); EOS % 0.3 % (1.0-4.0); HEMATOCRIT 30.9 % (37.0-47.0); HEMOGLOBIN 9.5 g/dl (12.0-16.0); LYMPH # 1.1 10*3/uL (1.3-4.4); LYMPH % 9.1 % (27.0-41.0); MEAN CELL VOLUME 106.2 fl (81.0-99.0); MEAN CORPUSCULAR HGB 32.6 pg (27.0-31.0); MEAN CORPUSCULAR HGB CONC 30.7 g/dl (33.0-37.0); MEAN PLATELET VOLUME 10.6 fl (9.6-12.3); MONO # 1.2 10*3/uL (0.1-1.0); MONO % 9.8 % (3.0-9.0); NEUT # 9.9 10*3/uL (2.3-7.9); PLATELET COUNT AUTOMATED 297 10*3/uL (130-400); RED BLOOD COUNT 2.91 10*6/uL (4.10-5.10); RED CELL DISTRI WIDTH 17.1 % (0-14.5); WHITE BLOOD COUNT 12.3 10*3/uL (4.8-10.8)
[2018-04-24 12:02] LABS: ACT PARTIAL THROMBO TIME 32.3 SECONDS (20.8-31.5); INTERNATIONAL NORM RATIO 1.3 (2.0-3.5)
[2018-04-24 12:12] LABS: ALBUMIN 3.4 gm/dl (3.1-4.5); CREATININE 4.67 mg/dL (0.55-1.02); TOTAL PROTEIN 6.4 gm/dL (6.4-8.2)
[2018-04-24 12:15] LABS: TROPONIN I 0.069 ng/ml (<0.045)
[2018-04-24 13:11] LABS: BILIRUBIN NEGATIVE (NEGATIVE); BLOOD NEGATIVE (NEGATIVE); CLARITY CLOUDY (CLEAR); COLOR YELLOW (YELLOW); GLUCOSE NEGATIVE (NEGATIVE); KETONE TRACE (NEGATIVE); LEUKO ESTERASE NEGATIVE (NEGATIVE); NITRITE NEGATIVE (NEGATIVE); PH 5.5 (5.0-9.0); SPECIFIC GRAVITY 1.025 (1.005-1.030); UROBILINOGEN 0.2 E.U./dl (0.2-1.0)
[2018-04-24 13:32] LABS: BACTERIA 2+; WBC 21-30 wbc/hpf (0-5)
[2018-04-24 15:32] LABS: CREATININE 4.58 mg/dL (0.55-1.02); POTASSIUM 5.7 mmol/L (3.5-5.1)
[2018-04-24] MEDS ORDERED: ZOLOFT100 MG PO (15:57)
[2018-04-24] MEDS ORDERED: LIPITOR40 MG PO (16:05)
[2018-04-24 17:55] LABS: CREATININE 4.6 mg/dL (0.55-1.02); POTASSIUM 5.6 mmol/L (3.5-5.1)
[2018-04-25] VITALS (8 sets, daily range): BP systolic 103–130; BP diastolic 26–73
[2018-04-25 05:13] LABS: HEMATOCRIT 25.2 % (37.0-47.0); HEMOGLOBIN 7.5 g/dl (12.0-16.0); MEAN CELL VOLUME 107.7 fl (81.0-99.0); MEAN CORPUSCULAR HGB 32.1 pg (27.0-31.0); MEAN CORPUSCULAR HGB CONC 29.8 g/dl (33.0-37.0); MEAN PLATELET VOLUME 10.5 fl (9.6-12.3); PLATELET COUNT AUTOMATED 217 10*3/uL (130-400); RED BLOOD COUNT 2.34 10*6/uL (4.10-5.10); RED CELL DISTRI WIDTH 17.3 % (0-14.5); WHITE BLOOD COUNT 8.6 10*3/uL (4.8-10.8)
[2018-04-25 05:19] LABS: ACT PARTIAL THROMBO TIME 26.2 SECONDS (20.8-31.5); INTERNATIONAL NORM RATIO 1.1 (2.0-3.5)
[2018-04-25 05:20] LABS: ABG HCO3 15.7 mmol/l (22-26); ABG O2 SATURATION 99.2 % (95-97); ARTERIAL BLOOD GAS PCO2 32.9 mmHg (35-45); ARTERIAL BLOOD GAS PH 7.302 (7.35-7.45)
[2018-04-25 05:21] LABS: ABG BASE EXCESS -9.3 mmol/L (-2.0-2.0)
[2018-04-25 05:25] LABS: ALBUMIN 2.7 gm/dl (3.1-4.5); CREATININE 4.74 mg/dL (0.55-1.02); PHOSPHOROUS 4.5 mg/dL (2.5-4.9); POTASSIUM 5.5 mmol/L (3.5-5.1); TOTAL PROTEIN 5.2 gm/dL (6.4-8.2)
[2018-04-25 06:17] LABS: TOTAL CELLS COUNTED 100 #CELLS
[2018-04-25 06:18] LABS: BURR CELLS FEW; PLATELET SUFFICIENCY NORMAL (NORMAL)
[2018-04-25] MEDS ORDERED: CEFTRIAXONE1 GM IJ (13:58)
[2018-04-25] MEDS ORDERED: PREMIERPRO RX100 M1 IV (13:58)
[2018-04-25] MEDS ORDERED: HEPARIN SO5000 UNIT/ SC (13:58)
[2018-04-25] MEDS ORDERED: SOLU-MEDRO40 MG/1 ML IV (13:58)
[2018-04-25] MEDS ORDERED: DOBUTAMINE IV (14:03)
== END 2018-04-25 15:14 | disposition short-term general hospital (02) | DRG 871 ==
LOC: ED 11:20 → ICCU 12:22 → EDHOLD 12:22 → ICCU 12:48
PROVIDERS: Emergency Medicine; Internal Medicine; Internal Medicine Cardiovascular Disease; Internal Medicine Critical Care Medicine; Student in an Organized Health Care Education/Training Program
PROC: 5A09357 Assistance with Respiratory Ventilation, Less than 24 Consecutive Hours, Continuous Positive Airway Pressure (ICD-10-PCS; principal; 2018-04-24)
PROC: 5A09357 Assistance with Respiratory Ventilation, Less than 24 Consecutive Hours, Continuous Positive Airway Pressure (ICD-10-PCS; 2018-04-25)
DX: A41.9 Sepsis, unspecified organism (principal); N17.0 Acute kidney failure with tubular necrosis; J96.21 Acute and chronic respiratory failure with hypoxia; J96.22 Acute and chronic respiratory failure with hypercapnia; E44.0 Moderate protein-calorie malnutrition; G91.2 (Idiopathic) normal pressure hydrocephalus; J44.1 Chronic obstructive pulmonary disease with (acute) exacerbation; E87.5 Hyperkalemia; I11.0 Hypertensive heart disease with heart failure; I50.9 Heart failure, unspecified; I48.0 Paroxysmal atrial fibrillation; E83.41 Hypermagnesemia; E03.9 Hypothyroidism, unspecified; R73.03 Prediabetes; R00.1 Bradycardia, unspecified; K21.9 Gastro-esophageal reflux disease without esophagitis; R65.20 Severe sepsis without septic shock; D53.9 Nutritional anemia, unspecified; R74.8 Abnormal levels of other serum enzymes; R29.6 Repeated falls; F41.1 Generalized anxiety disorder; F32.9 Major depressive disorder, single episode, unspecified; F03.90 Unspecified dementia, unspecified severity, without behavioral disturbance, psychotic disturbance, mood disturbance, and anxiety; Z96.1 Presence of intraocular lens; E78.5 Hyperlipidemia, unspecified; I25.10 Atherosclerotic heart disease of native coronary artery without angina pectoris; I25.2 Old myocardial infarction; Z81.1 Family history of alcohol abuse and dependence; Z87.01 Personal history of pneumonia (recurrent); Z90.710 Acquired absence of both cervix and uterus; Z98.41 Cataract extraction status, right eye; Z98.42 Cataract extraction status, left eye; Z90.49 Acquired absence of other specified parts of digestive tract; Z87.891 Personal history of nicotine dependence; Z83.3 Family history of diabetes mellitus; Z79.82 Long term (current) use of aspirin; Z79.899 Other long term (current) drug therapy

== ENCOUNTER 2018-05-25 06:33 | Inpatient (IN) | payer MEDICARE, OTHER ==
[~2018-05-25] VITALS: Ht 172.7 cm; Wt 72.7 kg
[2018-05-25] VITALS (8 sets, daily range): BP systolic 118–161; BP diastolic 47–90
--- NOTE | ~2018-05-25 | PR ---
[place], [place] PROGRESS NOTE NAME: ISABELLA BAH UNIT #: [id number] ROOM: 512 DOCTOR: CORNELIO SUAREZ MD BIRTHDATE: [birth year] DOS: 05/27/2018 CARDIOLOGY PROGRESS NOTE SUBJECTIVE: The patient was seen today on 05/27/2018 at her bedside for followup of dyspnea and an elevated troponin. She has had several hospitalizations recently for worsening dyspnea. The patient does have dementia and cannot give a clear history. She is known to have chronic renal insufficiency and does have chronically elevated troponin levels. She is very sedentary at home. She presented to the hospital on this occasion with worsening dyspnea, but denied any pains. We were concerned that she might have DVT since her legs were swollen, but lower extremity venous ultrasounds were negative. Serial troponin levels have been mildly elevated as they have been in the past. Today, she seems more awake and alert. She denies any chest pain and her breathing has improved. PHYSICAL EXAMINATION: VITAL SIGNS: Her pulse is 66 and regular, blood pressure is 179/90. She is afebrile. NECK: Supple. She has no jugular distention. Carotids are full. LUNGS: Respirations are unlabored. Chest is clear. HEART: Regular rhythm with an S4 gallop. ABDOMEN: Soft and normally active. EXTREMITIES: Trace edema bilaterally. IMPRESSION: 1. Dyspnea, likely due to an acute exacerbation of chronic obstructive lung disease. 2. Chronic elevation in troponin, most likely exacerbated by dehydration, hypotension, renal insufficiency, etc. 3. Acute on chronic renal insufficiency. 4. Paroxysmal atrial fibrillation, currently in sinus rhythm. Despite the patient's CHADS-VASc score of 5, she is not on anticoagulants because she is felt to represent a high risk for bleeding with anticoagulation therapy. 5. Normal pressure hydrocephalus. 6. Dementia. 7. Hypertension. PLAN: The patient does appear to be doing clinically better today, but her blood pressure remains very elevated. We are somewhat limited in our options for control of blood pressure by her relative bradycardia and renal insufficiency. I will therefore increase her clonidine dose today. We will continue to follow her intermittently in the hospital. I thank Dr. Martinez for asking our advice regarding her care. [place], [place] PROGRESS NOTE NAME: ISABELLA BAH UNIT #: [id number] ROOM: 512 DOCTOR: CORNELIO SUAREZ MD BIRTHDATE: [birth year] CORNELIO SUAREZ MD CM:PNTRANS [id number] CORNELIO SUAREZ MD 05/30/18 1640 interface
--- NOTE | ~2018-05-25 | WRIGHTHP ---
[place], [place] PATIENT HISTORY AND PHYSICAL EXAM NAME: ISABELLA BAH [facility] #: [id number] UNIT #: [id number] ROOM: 516 DOCTOR: DARLEEN DUNN MD BIRTHDATE: [birth year] DOS: 05/25/2018 HISTORY OF PRESENT ILLNESS: The patient is an 82-year-old female with a past medical history of: 1. Moderate protein-calorie malnutrition. 2. Late onset Alzheimer's type dementia. 3. Elevated troponin levels in the past. 4. Adult failure to thrive and ambulatory dysfunction. 5. Generalized anxiety disorder. 6. Benign essential hypertension. 7. Chronic systolic type CHF. 8. Hypothyroidism. 9. COPD. 10. Paroxysmal atrial fibrillation. 11. Normal pressure hydrocephalus. 12. Mixed hyperlipidemia. The patient presented to the Emergency Department at [facility] for increased shortness of breath and wheezing and her troponin I level was found to be elevated. After admission, the patient is awake, alert, not able to provide much history, but she is oriented to her name and place. REVIEW OF SYSTEMS: RESPIRATORY: Increasing shortness of breath for a few days. GASTROINTESTINAL: No nausea, vomiting, diarrhea, constipation. CARDIOVASCULAR: No chest pains or palpitations. FAMILY HISTORY: Noncontributory. HOME MEDICATIONS: Furosemide, spironolactone, Zoloft, MiraLax, aspirin, mirtazapine, levothyroxine, Coreg, hydralazine, albuterol. ALLERGIES: No known drug allergies. PHYSICAL EXAMINATION: GENERAL: Awake, alert, unable to provide any history. Oriented to place and person. VITAL SIGNS: Blood pressure 121/47, heart rate of 64 beats per minute, breathing 16 times per minute, temperature ranging between 99.2-100.7 degrees Fahrenheit. HEENT AND NECK: Extraocular movements are intact. Sclerae are anicteric. Oral mucosa is moist and clean. No obvious facial weakness. Neck is supple without any lymphadenopathy. No thyromegaly. No JVD. No carotid arterial bruits. LUNGS: Clear to auscultation. No wheezing. No rhonchi. CARDIOVASCULAR SYSTEM: Heart rate is regular in rate and rhythm. S1 and S2 normally audible. No significant murmur or any other abnormal cardiac sounds. ABDOMEN: Soft, nontender. No obvious organomegaly. Bowel sounds are present. No obvious herniation. EXTREMITIES: Without significant cyanosis or edema. Warm to touch. CENTRAL NERVOUS SYSTEM: Alert and oriented x 3. Cranial nerves II-XII are [place], [place] PATIENT HISTORY AND PHYSICAL EXAM NAME: [id number] UNIT #: [id number] ROOM: 516 DOCTOR: DARLEEN DUNN MD BIRTHDATE: [birth year] intact. Speech is normal. The patient is able to move all extremities. Deep tendon reflexes are equal on both sides. Plantars were downgoing. Generalized weakness. LABORATORY DATA: White cell count elevated to 18,000; hemoglobin 9. BUN and creatinine 20 and 1.14. Normal serum electrolytes. ProBNP elevated to 5000. Lactic acid level is normal. Chest x-ray showing COPD. IMPRESSION AND PLAN: 1. Acute exacerbation of chronic obstructive pulmonary disease, to be treated with bronchodilators, DuoNebs, oxygen, nebulizer treatment and antibiotic and follow closely. 2. Elevation of troponin I level, which also has been observed in the past. I have consulted Cardiology to evaluate her. The patient has very minimal elevation of troponin I level, which may be secondary to dehydration. 3. Moderate protein calorie malnutrition, old age and adult failure to thrive. The patient to work with Dietary. 4. Generalized weakness, recurrent falls. The patient to work with Physical Therapy. 5. Chronic systolic type congestive heart failure, to be treated with spironolactone, hydralazine, Lasix, Cardizem, which have been continued. 6. Hypothyroidism, treated with levothyroxine. DARLEEN DUNN MD CM:HISPHYS:PATIENT HISTORY AND PHYSICAL EXAMINATION [id number] DARLEEN DUNN MD 05/25/18 1152 interface
--- NOTE | ~2018-05-25 | PR ---
[place], [place] PROGRESS NOTE NAME: ISABELLA BAH UNIT #: [id number] ROOM: 512 DOCTOR: CORNELIO SUAREZ MD BIRTHDATE: [birth year] DOS: 05/26/2018 SUBJECTIVE: The patient was seen today at her bedside on 05/26/2018 for followup of dyspnea and elevated troponin. She is an 82-year-old woman who has had several hospitalizations recently for worsening dyspnea. The patient has dementia and cannot give a cogent history. She is known to have chronic renal insufficiency and does have chronically elevated troponin levels. She is very sedentary at home. When I evaluated her yesterday I did note that even though she is bedridden her legs are swollen. A D-dimer level was significantly elevated. I therefore did temporarily place her on therapeutic dosages of Lovenox. A lower extremity venous ultrasound for DVT is pending. PHYSICAL EXAMINATION: VITAL SIGNS: Today, her pulse is 68 and regular, blood pressure is 160/58. She is afebrile. NECK: Supple. She had no jugular distention. Carotids are full. LUNGS: Respirations are unlabored. She has decreased breath sounds bilaterally and expiratory prolongation bilaterally. HEART: Has a regular rhythm with an S4 gallop. ABDOMEN: Soft and normally active. EXTREMITIES: Showed 1+ edema bilaterally. IMPRESSION: 1. Dyspnea, likely due to an acute exacerbation of chronic obstructive lung disease. 2. Chronic elevation in troponin, probably exacerbated by dehydration, hypotension, renal insufficiency, etc. 3. History of acute on chronic renal failure. 4. Paroxysmal atrial fibrillation, currently in sinus rhythm. Despite the patient's CZM2LC3-EOAv score of 5 she is not on anticoagulants because she is felt to represent a high risk for bleeding with anticoagulant therapy. 5. Normal pressure hydrocephalus. 6. Dementia. 7. Hypertension. PLAN: I will review the results of her lower extremity venous ultrasound when available. If it is negative, then I would simply use support stockings or low dose heparin for ongoing prophylaxis. No further evaluation of her troponin is planned. We thank Dr. Martinez for asking our advice regarding her care. [place], [place] PROGRESS NOTE NAME: ISABELLA BAH UNIT #: [id number] ROOM: 512 DOCTOR: CORNELIO SUAREZ MD BIRTHDATE: [birth year] CORNELIO SUAREZ MD CM:PNTRANS [id number] CORNELIO SUAREZ MD 05/26/18 1002 interface
--- NOTE | ~2018-05-25 | PR ---
[place], [place] PROGRESS NOTE NAME: ISABELLA BAH UNIT #: [id number] ROOM: 512 DOCTOR: DARLEEN DUNN MD BIRTHDATE: [birth year] DOS: 05/27/2018 SUBJECTIVE: The patient continues to feel better. OBJECTIVE: VITAL SIGNS: Blood pressure 182/68, heart rate of 68 beats per minute, breathing 20 times per minute, afebrile. GENERAL APPEARANCE: The patient is alert and oriented x 3, in no visible distress. Generalized weakness. The patient working with physical therapy. HEENT AND NECK: Exam within normal limits. CARDIOVASCULAR SYSTEM: Heart rate is regular in rate and rhythm. S1 and S2 normally audible. LUNGS: Clear to auscultation. ABDOMEN: Soft, nontender. No obvious organomegaly. Bowel sounds are present. EXTREMITIES: Without significant cyanosis or edema. IMPRESSION: 1. The patient with elevated blood pressures. I will restart her clonidine and continue Coreg and hydralazine. 2. Advance adult failure to thrive. The patient working with physical therapy. 3. Hypothyroidism, replaced with levothyroxine. 4. Urinary tract infection with Escherichia coli, being treated appropriately with ceftriaxone. 5. Chronic elevation of troponin I levels reevaluated by Cardiology, thought to be secondary to renal insufficiency and dehydration. 6. Moderate protein-calorie malnutrition. The patient being followed by Dietary. 7. Paroxysmal atrial fibrillation. The patient not anticoagulated because she is at high risk for bleeding. 8. Acute exacerbation of chronic obstructive pulmonary disease, being treated with bronchodilators. DARLEEN DUNN MD CM:PNTRANS [id number] DARLEEN DUNN MD 05/28/18 0227 interface
--- NOTE | ~2018-05-25 | PR ---
[place], [place] PROGRESS NOTE NAME: ISABELLA BAH UNIT #: [id number] ROOM: 512 DOCTOR: DARLEEN DUNN MD BIRTHDATE: [birth year] DOS: 05/26/2018 SUBJECTIVE: The patient is feeling more alert and better today. Abdominal pains have resolved. OBJECTIVE: GENERAL APPEARANCE: The patient is alert and oriented x 3, in no visible distress. Generalized weakness. VITAL SIGNS: Blood pressure 140/58, heart rate 65 beats per minute, breathing 20 times per minute, afebrile. HEENT AND NECK: Exam within normal limits. CARDIOVASCULAR SYSTEM: Heart rate is regular in rate and rhythm. S1 and S2 normally audible. LUNGS: Clear to auscultation. ABDOMEN: Soft, nontender. No obvious organomegaly. Bowel sounds are present. EXTREMITIES: Without significant cyanosis or edema. IMPRESSION: 1. Venous Dopplers of the lower extremities without any signs of deep venous thrombosis. 2. Urinary tract infection growing gram-negative bacilli being treated with ceftriaxone so far. 3. Hypothyroidism. The patient remains on levothyroxine. 4. Acute exacerbation of chronic obstructive pulmonary disease, being treated and improving. 5. Paroxysmal atrial fibrillation. The patient is not on anticoagulation because she is considered a high risk for bleeding, reevaluated by Dr. Lundy. 6. Chronic elevation of troponin level related to dehydration, hypotension and renal insufficiency. 7. Chronic systolic type congestive heart failure, compensated. The patient on spironolactone, hydralazine, Lasix, Cardizem. 8. Moderate protein-calorie malnutrition, adult failure to thrive. The patient is working with dietary. [place], [place] PROGRESS NOTE NAME: ISABELLA BAH UNIT #: [id number] ROOM: 512 DOCTOR: DARLEEN DUNN MD BIRTHDATE: [birth year] DARLEEN DUNN MD CM:PNTRANS [id number] DARLEEN DUNN MD 05/27/18 0159 interface
--- NOTE | ~2018-05-25 | EKG ---
[place], [place] ELECTROCARDIOGRAM REPORT NAME: ISABELLA BAH UNIT #: [id number] ROOM: 512 DOCTOR: DEACON DRAFT REPORT BIRTHDATE: [birth year] [facility] Test Date: 2018-05-25 Test Time: 06:56:36 Pat Name: ISABELLA BAH Department: Room: 512 Gender: F Spout Tender: : 1935 Requested By: SIOBHAN HOPKINS Order Number: [id number] Reading MD: Chapito Lundy MD Measurements Intervals [place] Rate: 69 P: 93 NM: 195 QRS: 94 QRSD: 104 T: 69 QT: 427 QTc: 458 Interpretive Statements Sinus rhythm Compared to ECG 04/24/2018 18:55:17 Junctional rhythm no longer present ST (T wave) deviation no longer present Possible ischemia no longer present Electronically Signed On 05-25-2018 19:39:27 PDT by Chapito Lundy MD CM:EKGRPT:ELECTROCARDIOGRAM REPORT 38 SIOBHAN BOSWELL DRAFT REPORT SIOBHAN HOPKINS DO
--- NOTE | ~2018-05-25 | CON ---
[place], [place] REPORT OF CONSULTATION NAME: ISABELLA BAH UNIT #: [id number] ROOM: 512 DOCTOR: CORNELIO SUAREZ MD BIRTHDATE: [birth year] DOS: 05/25/2018 REASON FOR CONSULTATION: Elevated troponin. REFERRING PHYSICIAN: Dr. Víctor Martinez. CHIEF COMPLAINT: Dyspnea. HISTORY OF PRESENT ILLNESS: The patient is an 82-year-old woman who has had several recent hospitalizations. She was seen at her bedside on the telemetry unit. She presented to the hospital with worsening dyspnea for the last several days. The patient is quite confused and cannot tell me much about her history. She believes she is stuck in an elevator. She does admit to dyspnea, but denies any pains. In the Emergency Room, she was felt to have a fever with audible wheezing and dyspnea. It was felt that she did have an exacerbation of her lung disease. Serial troponins were ordered. Her first troponin level is elevated at 0.050. Cardiology was therefore asked to see her. The patient has been seen by Cardiology in the past. Review of old records indicates that on multiple hospitalizations, she has had elevation in troponin. PAST MEDICAL HISTORY: Includes: 1. Coronary artery disease. 2. Paroxysmal atrial fibrillation. 3. Previous myocardial infarction. 4. Obstructive lung disease with episodes of pneumonia. 5. Essential hypertension. 6. Hyperlipidemia. 7. Hypothyroidism. 8. Normal pressure hydrocephalus. 9. Dementia. 10. Hospitalization 04/24/2018 with bradycardia. The patient was on amiodarone at the time to suppress atrial fibrillation. The patient also had an acute on chronic renal failure at that time as well as hyperkalemia. Her bradycardia resolved when amiodarone was removed and her medications were adjusted. 11. Most recent stress test 09/22/2016 showed ejection fraction 50-55% with small inferior SD and small area of distal inferior ischemia. The patient was managed medically. 12. Most recent echocardiogram dated 03/23/2018 showed normal left ventricular size, wall motion and systolic function with ejection fraction 65%, mild concentric left ventricular hypertrophy, stage 2 diastolic dysfunction, moderate left atrial enlargement, aortic sclerosis without stenosis, mild tricuspid insufficiency with mildly elevated right ventricular systolic pressures. MEDICATIONS PRIOR TO ADMISSION: Albuterol 2 puffs q.i.d., Breo Ellipta 1 puff daily, acetaminophen p.r.n., aspirin 81 mg daily, carvedilol 6.25 mg b.i.d., cholecalciferol 2000 units daily, furosemide 20 mg every other day, gabapentin 100 mg t.i.d., hydralazine 75 mg t.i.d., levothyroxine 100 mcg at bedtime, [place], [place] REPORT OF CONSULTATION NAME: ISABELLA BAH UNIT #: [id number] ROOM: 512 DOCTOR: CORNELIO SUAREZ MD BIRTHDATE: [birth year] mirtazapine 15 mg at bedtime, polyethylene glycol 17 grams daily, sertraline 100 mg daily and spironolactone 25 mg daily. ALLERGIES: The patient has no known drug allergies. REVIEW OF SYSTEMS: Difficult. The patient denies headache, loss of vision, focal weakness. She does complain of dyspnea. She complains of thirst. She denies nausea or vomiting. She denies obvious bleeding. She does note some swelling in her legs. The remainder of the review of systems is unavailable. FAMILY HISTORY: According to the chart, her father at age 64 from alcohol abuse; her mother at age 63 from a fall. SOCIAL HISTORY: The patient was a smoker as a teenager, but quit many years ago. She denies any alcohol abuse and currently does not smoke. PHYSICAL EXAMINATION: GENERAL: The patient is an elderly white female who is awake, alert and disoriented to time and place. VITAL SIGNS: Pulse is 70 and regular, blood pressure is 150/50. She is afebrile. She weighs 72.7 kg and has a body mass index of 24.4. HEENT: Normocephalic and atraumatic. Extraocular muscles are intact. Sclerae are clear. Pupils are equal, round and react to light. The oral mucosa is moist. Tongue is midline. NECK: Supple. She has no jugular distention or hepatojugular reflux. Carotids are full. I heard no bruits. She had no neck or supraclavicular masses. LUNGS: Respirations are somewhat tachypneic and she does appear breathless. She does have parched lips. She has decreased breath sounds at the bases, but no wheezes or rales. She has no presacral edema or chest wall tenderness. CARDIOVASCULAR: Her heart has a regular rhythm with an S4 gallop. There is no S3. The PMI is not displaced. There is no precordial heave, lift or thrill. ABDOMEN: Soft and normally active without masses, organomegaly or bruits. EXTREMITIES: Showed trace edema bilaterally. Peripheral pulses were diminished, but palpable. She did not have any palpable cords or Homans sign. IMPRESSIONS: 1. Dyspnea, likely due to acute exacerbation of chronic obstructive lung disease. 2. Chronic elevation in troponin, probably exacerbated by dehydration, hypotension, etc. 3. History of acute on chronic renal failure. 4. Paroxysmal atrial fibrillation, currently in sinus rhythm. Please note, despite the patient's CHADS2-VASc score of 5, she is not on anticoagulants because she is felt to represent a high risk for bleeding with anticoagulants. 5. Normal pressure hydrocephalus. 6. Dementia. 7. Hypertension. PLAN: We will check a D-dimer to see if there is any evidence for DVT. If that is abnormal, a lower extremity venous ultrasound will be requested. We will [place], [place] REPORT OF CONSULTATION NAME: ISABELLA BAH UNIT #: [id number] ROOM: 512 DOCTOR: CORNELIO SUAREZ MD BIRTHDATE: [address] Martinez for management of her bronchitis. No other cardiac workup is planned at this time. Her elevation in troponin appears to be chronic and is probably exacerbated by her dehydration. As noted previously, she is not a candidate for anticoagulation therapy and so should be maintained on aspirin. I thank Dr. Martinez for asking our advice regarding her care. CORNELIO SUAREZ MD CM:CONSTR:REPORT OF CONSULTATION 1447 05/26/18 0047 interface
--- NOTE | ~2018-05-25 | PR ---
[place], [place] PROGRESS NOTE NAME: ISABELLA BAH UNIT #: [id number] ROOM: 512 DOCTOR: DARLEEN DUNN MD BIRTHDATE: [birth year] DOS: 05/29/2018 ADDENDUM SUBJECTIVE: The patient continues to feel better. She has no new complaints. OBJECTIVE: VITAL SIGNS: Blood pressure 173/60, heart rate of 60 beats per minute, breathing normally, afebrile. GENERAL APPEARANCE: The patient is alert and oriented x 3, in no visible distress. HEENT AND NECK: Exam within normal limits. CARDIOVASCULAR SYSTEM: Heart rate is regular in rate and rhythm. S1 and S2 normally audible. LUNGS: Clear to auscultation. ABDOMEN: Soft, nontender. No obvious organomegaly. Bowel sounds are present. EXTREMITIES: Without significant cyanosis or edema. IMPRESSION AND PLAN: 1. Benign essential hypertension with some elevated blood pressures, which will need to be followed and treated. The patient already on clonidine and hydralazine along with spironolactone. I do not want to change her blood pressure medication in a hurry because it can cause hypotension. 2. Chronic atrial fibrillation with controlled heart rates. The patient is not a good candidate for anticoagulation. 3. Hypothyroidism, treated with levothyroxine. 4. Major depression, recurrent, mild, treated and controlled with Zoloft. 5. Chronic respiratory failure, chronic obstructive pulmonary disease. The patient remains on oxygen. The patient's discharge had to be delayed to today from yesterday because the residential was unable to accept her later in the day. DARLEEN DUNN MD CM:PNTRANS [id number] DARLEEN DUNN MD 05/30/18 0319 interface
--- NOTE | ~2018-05-25 | DS ---
[place], [place] DISCHARGE SUMMARY [id number] UNIT #: [id number] ROOM: 512 DOCTOR: DARLEEN DUNN MD BIRTHDATE: [birth year] DOS: 05/28/2018 DISCHARGE DIAGNOSES: 1. Benign essential hypertension, treatment adjusted. 2. Urinary tract infection with Escherichia coli. 3. Acute exacerbation of chronic obstructive pulmonary disease with wheezing and shortness of breath improved with treatment. 4. Paroxysmal atrial fibrillation. The patient is not anticoagulated because of high risk for bleeding. 5. Moderate protein-calorie malnutrition. 6. Chronic elevation of troponin I level, reevaluated by Cardiology, probably secondary to renal insufficiency and dehydration. 7. Hypothyroidism. 8. Advanced adult failure to thrive. 9. Moderate protein-calorie malnutrition. 10. Late onset Alzheimer's type dementia. 11. Adult failure to thrive and ambulatory dysfunction. 12. Generalized anxiety disorder. 13. Chronic systolic type congestive heart failure. 14. Normal pressure hydrocephalus. 15. Mixed hyperlipidemia. The patient was admitted to [facility] for increased shortness of breath, wheezing, and slight elevation of troponin I level. Cardiology were consulted and they were not that concerned about troponin I level elevation. It was thought to be secondary to renal insufficiency and dehydration and chronically elevated troponin I levels. 16. Acute exacerbation of chronic obstructive pulmonary disease with shortness of breath and wheezing resolved with use of corticosteroids, oxygen, antibiotics. The patient is breathing normally now. 17. Chronic atrial fibrillation. The patient has not been anticoagulated prior to this admission, apparently from high risk of bleeding. 18. Chronic systolic type congestive heart failure, compensated. The patient is on spironolactone, hydralazine, Lasix, Cardizem, which were continued. 19. Hypothyroidism, replaced with levothyroxine. 20. Moderate to severe protein-calorie malnutrition, old age and adult failure to thrive. The patient worked with physical therapy and physical therapy needs to be continued at the residential. LABORATORY DATA: Blood cultures were negative. Urine cultures grew Escherichia coli, leukocytosis secondary to use of corticosteroids, resolving with discontinuation of the Solu-Medrol. BUN and creatinine 30 and 1.3. DISCHARGE MANAGEMENT: Clonidine 0.2 mg b.i.d., furosemide 20 mg a day, MiraLax 17 grams daily, aspirin 81 mg a day, mirtazapine 15 mg at bedtime, levothyroxine 100 mcg daily, hydralazine 75 mg 3 times a day, gabapentin 100 mg 3 times a day, spironolactone 25 mg a day, DuoNeb q.i.d. as needed, Zoloft 100 mg a day, Coreg 6.25 mg b.i.d., Tylenol 1000 mg every 6 hours as needed and Bactrim DS b.i.d. for 1 week. [place], [place] DISCHARGE SUMMARY NAME: ISABELLA BAH UNIT #: [id number] ROOM: 512 DOCTOR: DARLEEN DUNN MD BIRTHDATE: [birth year] DARLEEN DUNN MD CM:MARY 07 18 DARLEEN DUNN MD 05/28/181916 interface
[~2018-05-25 06:33] MED LIST changes: +CEFTRIAXONE1 GM IJ; +DOBUTAMINE IV; +HEPARIN SO5000 UNIT/ SC; +PREMIERPRO RX100 M1 IV; +SOLU-MEDRO40 MG/1 ML IV; +ZOLOFT100 MG PO
[2018-05-25 07:11] LABS: HEMATOCRIT 28.5 % (37.0-47.0); MEAN CORPUSCULAR HGB 32.8 pg (27.0-31.0); MEAN CORPUSCULAR HGB CONC 31.6 g/dl (33.0-37.0); MEAN PLATELET VOLUME 9.9 fl (9.6-12.3); PLATELET COUNT AUTOMATED 293 10*3/uL (130-400); RED BLOOD COUNT 2.74 10*6/uL (4.10-5.10); RED CELL DISTRI WIDTH 15.7 % (0-14.5); WHITE BLOOD COUNT 18.3 10*3/uL (4.8-10.8)
[2018-05-25 07:24] LABS: INTERNATIONAL NORM RATIO 0.9 (2.0-3.5)
[2018-05-25 07:29] LABS: ALBUMIN 2.9 gm/dl (3.1-4.5); CREATININE 1.14 mg/dL (0.55-1.02); POTASSIUM 4.5 mmol/L (3.5-5.1); TOTAL PROTEIN 6.3 gm/dL (6.4-8.2)
[2018-05-25 07:31] LABS: TROPONIN I 0.05 ng/ml (<0.045)
[2018-05-25 07:38] LABS: PLATELET SUFFICIENCY NORMAL (NORMAL); TOTAL CELLS COUNTED 100 #CELLS
[2018-05-25 08:23] LABS: BILIRUBIN NEGATIVE (NEGATIVE); CLARITY CLOUDY (CLEAR); COLOR YELLOW (YELLOW); GLUCOSE NEGATIVE (NEGATIVE); KETONE NEGATIVE (NEGATIVE)
[2018-05-25 08:24] LABS: BLOOD 1+ (NEGATIVE); LEUKO ESTERASE 3+ (NEGATIVE); NITRITE POSITIVE (NEGATIVE); UROBILINOGEN 0.2 E.U./dl (0.2-1.0)
[2018-05-25 08:25] LABS: WBC TNTC wbc/hpf (0-5)
[2018-05-25 08:26] LABS: BACTERIA 4+
[2018-05-25 08:40] LABS: ABG BASE EXCESS 3.4 mmol/L (-2.0-2.0); ABG HCO3 28.3 mmol/l (22-26); ABG O2 SATURATION 98.1 % (95-97); ARTERIAL BLOOD GAS PCO2 49.8 mmHg (35-45); ARTERIAL BLOOD GAS PH 7.378 (7.35-7.45)
[2018-05-25] MEDS ORDERED: REMERON15 M2 PO (09:53)
[2018-05-25] MEDS ORDERED: TYLENOL325 M3 PO (09:53)
[2018-05-25] MEDS ORDERED: NEURONTIN100 MG PO (09:54)
[2018-05-25] MEDS ORDERED: GLYCOLAX119 GM PO (09:57)
[2018-05-25] MEDS ORDERED: Hydralazine Hyd25 MG PO (10:01)
[2018-05-25] MEDS ORDERED: CARVEDILOL6.25 MG PO (10:04)
[2018-05-25] MEDS ORDERED: LASIX20 MG PO (10:10)
[2018-05-25] MEDS ORDERED: PROAIR HFA8.5 GM INH (10:14)
[2018-05-26] VITALS: BP 130/72
[2018-05-26 06:59] LABS: BASO # 0.1 10*3/uL (0.0-0.1); BASO % 0.2 % (0.0-1.0); HEMATOCRIT 27.3 % (37.0-47.0); HEMOGLOBIN 8.4 g/dl (12.0-16.0); LYMPH # 1.3 10*3/uL (1.3-4.4); LYMPH % 6.5 % (27.0-41.0); MEAN CELL VOLUME 104.6 fl (81.0-99.0); MEAN CORPUSCULAR HGB 32.2 pg (27.0-31.0); MEAN CORPUSCULAR HGB CONC 30.8 g/dl (33.0-37.0); MEAN PLATELET VOLUME 10.1 fl (9.6-12.3); MONO # 0.7 10*3/uL (0.1-1.0); MONO % 3.2 % (3.0-9.0); NEUT % 89.3 % (47.0-73.0); PLATELET COUNT AUTOMATED 286 10*3/uL (130-400); RED BLOOD COUNT 2.61 10*6/uL (4.10-5.10); RED CELL DISTRI WIDTH 15.4 % (0-14.5); WHITE BLOOD COUNT 20.2 10*3/uL (4.8-10.8)
[2018-05-26 07:26] LABS: CREATININE 1.31 mg/dL (0.55-1.02); POTASSIUM 4.7 mmol/L (3.5-5.1)
[2018-05-26 08:00] VITALS: BP 160/58
[2018-05-26 09:54] VITALS: BP 150/52
[2018-05-26 12:00] VITALS: BP 140/58
[2018-05-26 16:00] VITALS: BP 140/58; BP 170/60
[2018-05-26 20:00] VITALS: BP 153/55
[2018-05-27] VITALS: BP 166/57
[2018-05-27 08:00] VITALS: BP 182/68
[2018-05-27 12:00] VITALS: BP 179/90
[2018-05-27 16:00] VITALS: BP 165/56
[2018-05-27 20:00] VITALS: BP 156/66
[2018-05-28] VITALS: BP 159/53
[2018-05-28 06:58] LABS: BASO % 0.1 % (0.0-1.0); HEMATOCRIT 26.6 % (37.0-47.0); HEMOGLOBIN 8.4 g/dl (12.0-16.0); LYMPH # 1.7 10*3/uL (1.3-4.4); LYMPH % 10.8 % (27.0-41.0); MEAN CELL VOLUME 103.1 fl (81.0-99.0); MEAN CORPUSCULAR HGB 32.6 pg (27.0-31.0); MEAN CORPUSCULAR HGB CONC 31.6 g/dl (33.0-37.0); MEAN PLATELET VOLUME 10.1 fl (9.6-12.3); MONO # 0.8 10*3/uL (0.1-1.0); MONO % 4.9 % (3.0-9.0); NEUT # 12.8 10*3/uL (2.3-7.9); NEUT % 82.8 % (47.0-73.0); PLATELET COUNT AUTOMATED 333 10*3/uL (130-400); RED BLOOD COUNT 2.58 10*6/uL (4.10-5.10); RED CELL DISTRI WIDTH 14.9 % (0-14.5); WHITE BLOOD COUNT 15.5 10*3/uL (4.8-10.8)
[2018-05-28 07:17] LABS: CREATININE 1.08 mg/dL (0.55-1.02)
[2018-05-28 12:00] VITALS: BP 178/58
[2018-05-28 16:00] VITALS: BP 149/53
[2018-05-28] MEDS ORDERED: CLONIDINE HCL0.2 MG PO (18:55)
[2018-05-28] MEDS ORDERED: SEPTDS PO (19:05)
[2018-05-28 20:00] VITALS: BP 173/106
[2018-05-29] VITALS: BP 170/60
== END 2018-05-29 13:41 | disposition other institution (70) | DRG 871 ==
LOC: ED 06:33 → 5E 08:56 → EDHOLD 08:56 → 5E 09:04
PROVIDERS: Emergency Medicine; Internal Medicine
DX: A41.9 Sepsis, unspecified organism (principal); E43 Unspecified severe protein-calorie malnutrition; N39.0 Urinary tract infection, site not specified; J44.1 Chronic obstructive pulmonary disease with (acute) exacerbation; I50.22 Chronic systolic (congestive) heart failure; G91.2 (Idiopathic) normal pressure hydrocephalus; F33.0 Major depressive disorder, recurrent, mild; J96.10 Chronic respiratory failure, unspecified whether with hypoxia or hypercapnia; I13.0 Hypertensive heart and chronic kidney disease with heart failure and stage 1 through stage 4 chronic kidney disease, or unspecified chronic kidney disease; B96.20 Unspecified Escherichia coli [E. coli] as the cause of diseases classified elsewhere; I48.0 Paroxysmal atrial fibrillation; E86.0 Dehydration; E03.9 Hypothyroidism, unspecified; R62.7 Adult failure to thrive; G30.1 Alzheimer's disease with late onset; F02.80 Dementia in other diseases classified elsewhere, unspecified severity, without behavioral disturbance, psychotic disturbance, mood disturbance, and anxiety; R26.9 Unspecified abnormalities of gait and mobility; N18.9 Chronic kidney disease, unspecified; F41.1 Generalized anxiety disorder; E78.2 Mixed hyperlipidemia; Z96.1 Presence of intraocular lens; I48.2 Chronic atrial fibrillation; R54 Age-related physical debility; I25.10 Atherosclerotic heart disease of native coronary artery without angina pectoris; Z81.1 Family history of alcohol abuse and dependence; Z87.891 Personal history of nicotine dependence; Z90.710 Acquired absence of both cervix and uterus; Z90.49 Acquired absence of other specified parts of digestive tract; Z98.49 Cataract extraction status, unspecified eye; Z83.3 Family history of diabetes mellitus; Z79.82 Long term (current) use of aspirin; Z79.899 Other long term (current) drug therapy; Z79.51 Long term (current) use of inhaled steroids; Z68.24 Body mass index [BMI] 24.0-24.9, adult

== ENCOUNTER 2018-06-03 07:23 | Inpatient (IN) | payer MEDICARE, OTHER ==
[~2018-06-03] VITALS: Ht 157.5 cm; Wt 67.7 kg
[2018-06-03] VITALS (7 sets, daily range): BP systolic 152–198; BP diastolic 38–63
--- NOTE | ~2018-06-03 | DS ---
[place], [place] DISCHARGE SUMMARY NAME: [facility]LLA [id number] UNIT #: [id number] ROOM: 524 DOCTOR: DARLEEN DUNN MD BIRTHDATE: [birth year] DOS: 06/12/2018 DISCHARGE DIAGNOSES: 1. Sepsis. 2. Pneumonia. 3. Left hip fracture. 4. Leukocytosis. 5. Hypothyroidism. 6. Obesity. 7. Chronic obstructive pulmonary disease. 8. Alzheimer's type dementia. 9. Adult failure to thrive with recurrent falls. 10. Paroxysmal atrial fibrillation. 11. Deep venous thrombosis and pulmonary embolism. 12. Protein-calorie malnutrition, severe. 13. Benign essential hypertension. 14. Congestive heart failure, diastolic type. 15. Mixed hyperlipidemia. HOSPITAL COURSE: The patient treated at [facility]. Apparently, she had developed pulmonary embolism with DVT and started on IV heparin and later on converted to apixaban by Dr. Coffman. The patient can get all those treatments at the nursing facility, so she is being discharged on apixaban 10 mg twice a day for a week, later on 10 mg twice a day for a week and later on 5 mg twice a day. Severe protein calorie malnutrition. The patient to be followed by Dietary. Benign essential hypertension, treated and controlled. Frequent falls, left hip fracture, status post ORIF. Advanced adult failure to thrive. The patient is to work with physical therapy. LABORATORY DATA: Blood cultures were negative. Urine cultures were negative. Venous Doppler was negative. No leukocytosis. Hemoglobin 7.8. Lung scan showing high probability for pulmonary embolism. DISCHARGE MANAGEMENT: Apixaban 10 mg twice a day for a week and then 5 mg twice a day to be continued. Follow up with Dr. Castillo. Mirtazapine 15 mg at bedtime, DuoNeb q.i.d., vitamin D 4000 units daily, Zoloft 100 mg a day, Mirapex 17 grams daily, levothyroxine 100 mcg daily, clonidine 0.2 mg b.i.d., Coreg 6.25 mg b.i.d., gabapentin 100 mg t.i.d., Dulcolax 5 mg daily p.r.n., Vicodin q.i.d. p.r.n. for pain. [place], [place] DISCHARGE SUMMARY NAME: ISABELLA BAH UNIT #: [id number] ROOM: 524 DOCTOR: DARLEEN DUNN MD BIRTHDATE: [birth year] DARLEEN DUNN MD CM:MARY [id number] DARLEEN DUNN MD 06/12/181929 interface
--- NOTE | ~2018-06-03 | PR ---
[place], [place] PROGRESS NOTE NAME: [facility] [id number] UNIT #: [id number] ROOM: 524 DOCTOR: ABNER CHEN MD BIRTHDATE: [birth year] DOS: 06/07/2018 SUBJECTIVE: The patient is resting comfortably, does not have any complaints. States that she does not have any pain. She had a restful night. OBJECTIVE: VITAL SIGNS: Blood pressure is 118/40, pulse of 60, respirations 20, and temperature 98.1. LUNGS: Clear. HEART: Regular. ABDOMEN: Soft. EXTREMITIES: Without any edema. Larkin catheter draining clear urine. LABORATORY DATA: White cell count not done this morning. Folic acid is 4.04. ASSESSMENT AND PLAN: 1. Left hip fracture, awaiting surgery. 2. Elevated white cell count, possibly from recent steroids, so it is most likely reactive. No evident source of infection noted and the patient does not have any fever. I reviewed the peripheral smear, does have some high amount of monocytes and metamyelocytes, so an LAP score will be done to rule out chronic leukocytic leukemia. 3. Folic acid deficiency. Supplements started. ABNER CHEN MD CM:PNTRANS [phone] ABNER CHEN MD 06/27/18 0906 interface
--- NOTE | ~2018-06-03 | PR ---
[place], [place] PROGRESS NOTE NAME[id number] UN[facility] #: [id number] ROOM: 524 DOCTOR: ABNER CHEN MD BIRTHDATE: [birth year] DOS: 06/08/2018 SUBJECTIVE: The patient underwent surgery yesterday, but this morning she complains of abdominal pain during the night. She did spike a fever to 101.6. Temperature has come down to 99.1 this morning. OBJECTIVE: VITAL SIGNS: Graphic trend shows blood pressure 156/60, pulse of 60, respirations 18, temperature 99.1. LUNGS: Diminished breath sounds. Few fine wheezes heard. HEART: Tachycardic. ABDOMEN: Obese, soft, some diffuse tenderness. EXTREMITIES: Without any edema. Hip site with some minimal drainage, left hip. LABORATORY DATA: WBC count has gone up to 24.7, hemoglobin 8.2, hematocrit 26.4, platelets 318. ASSESSMENT AND PLAN: 1. Fall with hip fracture, status post hemiarthroplasty. 2. Postoperative day 1, the patient is having high-grade fevers with white cell count also has gone up. The patient now complains of abdominal pain, so the CT of the abdomen and pelvis will be ordered without contrast. Infectious Disease already following. 3. Chronic elevation of white cell count. Workup has been started to rule out CML. 4. Chronic elevation of troponin. No further investigation planned. 5. Chronic kidney disease. Avoid nephrotoxic medications. BANER CHEN MD CM:PNTRANS [phone] ABNER CHEN MD 06/27/18 0905 interface
--- NOTE | ~2018-06-03 | CON ---
[place], [place] REPORT OF CONSULTATION NAME: ISABELLA BAH UNIT #: [id number] ROOM: 528 DOCTOR: MAKAYLA HARRELL,NOVEMBER BIRTHDATE: [birth year] DOS: 06/05/2018 HISTORY OF PRESENT ILLNESS: The patient is an 82-year-old female who was admitted from an area retirement, status post a fall on 06/03/2018. She was found to have left hip fracture. It appears the antibiotics were started. She received a diagnosis of pneumonitis in the Emergency Room; however, her chest x-ray was clear. She has also had a CT of the chest to confirm no infiltrates were reviewed films and report of the CT of the chest. The patient is an extremely poor historian due to her Alzheimer dementia. She had one temperature of 99.9 on admission, but otherwise she has been afebrile. She did have leukocytosis at the time of admission at 23.1 and it is at 17.8 currently. Blood cultures remain sterile. Her MRSA screen was negative. Again, the patient is not sure exactly where she came from or why she is here and is unable to contribute to her history. History is obtained per review of the chart. PAST MEDICAL HISTORY: As above as well as benign hypertension, COPD, paroxysmal AFib, chronic troponin elevation, hypothyroidism, Alzheimer's dementia, generalized anxiety disorder, hyperlipidemia, chronic AFib. SOCIAL HISTORY: Nonsmoker, nondrinker, was admitted from [place]. LABORATORY DATA: WBC 17.8, platelets 244. BUN 25, creatinine 1.34. LFTs were normal with yesterday's labs. Her albumin was 2.6. UA shows no pyuria. Cultures as reviewed above. CURRENT MEDICATIONS: Zoloft, MiraLax, Remeron, vitamin D, Synthroid, heparin, Catapres, Coreg, Apresoline, Neurontin, Rocephin, Zithromax, DuoNebs, Restoril, morphine, Milk of Magnesia, Shubuta, Tylenol. REVIEW OF SYSTEMS: Extremely limited. Again, the patient is unable to ____ review of systems, though she is a very poor historian. She denies any pain currently. Denies cough, shortness of breath. No nausea or vomiting. Denies diarrhea. No rash, no itch. Denies cough or shortness of breath. Further review of systems is unremarkable. VITAL SIGNS: Temperature 97.7, pulse 60, respirations 16, BP 127/45. ALLERGIES: No known drug allergies. FAMILY MEDICAL HISTORY: Not pertinent given chief complaint and advanced age. PHYSICAL EXAMINATION: GENERAL: An 82-year-old female in no acute distress, nontoxic in appearance. HEENT: Normocephalic, no thrush. NECK: Supple. LUNGS: Clear to auscultation bilaterally. Respirations even and unlabored. HEART: Regular rhythm. No murmur appreciated. ABDOMEN: Soft, nontender, nondistended, positive bowel sounds. EXTREMITIES: No edema. The left lower extremity is shortened and rotated [place], [place] REPORT OF CONSULTATION NAME: ISABELLA BAH UNIT #: [id number] ROOM: 528 DOCTOR: MAKAYLA HARRELLNOVEMBER BIRTHDATE: [birth year] externally. SKIN: Warm, dry, free of rashes. Larkin catheter draining clear yellow urine. ASSESSMENT AND PLAN: Leukocytosis, likely reactive. CT of chest is clear. Blood cultures are sterile. UA showed no pyuria. At this point, there is no sign or symptom of infection. She is mildly volume contracted and will stop the Rocephin and Zithromax. Continue to follow the patient. NOVEMBER SHARRI BENAVIDES Wendi Farris MD CM:CONSTR:REPORT OF CONSULTATION 9209 06/05/18 4843 interface
--- NOTE | ~2018-06-03 | PR ---
[place], [place] PROGRESS NOTE NAME: ISABELLA BAH UNIT #: [id number] ROOM: 524 DOCTOR: STACY HARRIS MD BIRTHDATE: [birth year] DOS: 06/13/2018 PULMONARY PROGRESS NOTE SUBJECTIVE: The patient is noted comfortable at this time, resting in the bed. She was not noted in any acute symptoms of shortness of breath at the present time. There were no symptoms of chest pain or hemoptysis reported. She is continued on unfractionated therapeutic heparin for the management of acute pulmonary embolism. OBJECTIVE: VITAL SIGNS: Normal temperature, respiratory rate 20, heart rate 75, blood pressure 153/62. Pulse oxygen saturation of the patient recorded on room air was 95% saturation. HEENT: Head was atraumatic, eyes nonicterus. NECK: Supple. CARDIOVASCULAR: S1 and S2 were audible. LUNGS: The patient was noted clear to auscultation bilaterally. ABDOMEN: Soft, nontender. Bowel sounds present. EXTREMITIES: Without any acute edema. LABORATORY DATA: CBC: WBC count normal, hemoglobin 7.8, platelet count was 404,000. PTT 52, which was therapeutic. BMP: BUN 36, creatinine normal. IMPRESSION: 1. Acute segmental pulmonary emboli involving the left lower lobe pulmonary arterial branch is likely with the current V/Q scan. 2. Status post hip fracture and open reduction and internal fixation after a fall, previously treated in the last couple of weeks. PLAN OF MANAGEMENT: The patient will be started on Eliquis based on the kidney functions adjustment. Continuation of other therapy, plan of management, and care plan. The heparin intravenous infusion was discontinued. [place], [place] PROGRESS NOTE NAME: ISABELLA BAH UNIT #: [id number] ROOM: 524 DOCTOR: STACY HARRIS MD BIRTHDATE: [birth year] STACY ALEJANDRO MD CM:PNTRANS [id number] JAC MCCRAY MD 06/14/18 1405 JESUS [email or web address].NATHAN
--- NOTE | ~2018-06-03 | PR ---
[place], [place] PROGRESS NOTE NAME: [id number] UNIT #: [id number] ROOM: 524 DOCTOR: DARLEEN DUNN MD BIRTHDATE: [birth year] DOS: 06/10/2018 SUBJECTIVE: The patient without new complaints. OBJECTIVE: VITAL SIGNS: Blood pressure 155/43, heart rate 64 beats per minute, breathing 19 times a minute, temperature 98.1 degrees Fahrenheit. GENERAL APPEARANCE: The patient is alert and oriented x 3, in no visible distress. HEENT AND NECK: Exam within normal limits. CARDIOVASCULAR SYSTEM: Heart rate is regular in rate and rhythm. S1 and S2 normally audible. LUNGS: Clear to auscultation. ABDOMEN: Soft, nontender. No obvious organomegaly. Bowel sounds are present. EXTREMITIES: Without significant cyanosis or edema. IMPRESSION: 1. The patient's onychomycosis being followed by Podiatry of the right great toe. 2. The patient with hip fracture status post open reduction and internal fixation day #3. Fever resolved, which was low grade yesterday. 3. Advanced adult failure to thrive. The patient waiting for License Inspector to arrange for discharge planning and rehabilitation. 4. Benign essential hypertension with controlled blood pressures. 5. There are no new complaints. DARLEEN DUNN MD CM:PNTRANS 29 22 DARLEEN DUNN MD 06/10/181922 interface
--- NOTE | ~2018-06-03 | PR ---
[place], [place] PROGRESS NOTE NAME[id number] UNIT #: [id number] ROOM: 524 DOCTOR: PRESTON QUIROS DPM BIRTHDATE: [birth year] DOS: 06/08/2018 SUBJECTIVE: This patient was seen at bedside for mycotic nail care and ____ care to both lower extremities. She has sustained a hip fracture. At this point in time, the patient was seen at bedside for care for feet. She had a right great toe that has an onychomycosis. Two nails are mildly dystrophic in nature. No gross evidence of infection to them. She has significant PVD. She has atrophic skin, diminished hair growth, weak palpable pedal pulses, slow cap refill time and some changes suggestive of PVD of both lower extremities. ASSESSMENT: Onychomycosis, right great toe; dystrophic nails 2 through 5, right; 1 through 5, left; peripheral vascular disease. PLAN: Nail debridement was performed 1 through 5 bilaterally. The right great toe was one mycotic. A topical antifungal cream was recommended. The patient is to follow up accordingly. We will see her as outpatient for followup, education given. This was done in the presence of PGY-1, Jg Chen. PRESTON QUIROS DPM CM:PNPRIMO [id number] PRESTON QUIROS DPM 06/09/186 interface
--- NOTE | ~2018-06-03 | PR ---
[place], [place] PROGRESS NOTE [id number] UNIT #: [id number] ROOM: 524 DOCTOR: DARLEEN DUNN MD BIRTHDATE: [birth year] DOS: 06/11/2018 SUBJECTIVE: The patient is very weak, says his breathing is better. OBJECTIVE: VITAL SIGNS: Blood pressure 151/48, heart rate 60 beats per minute, breathing 16 times per minute, temperature 98.2 degrees Fahrenheit. GENERAL APPEARANCE: The patient is alert and oriented x 3, in no visible distress. Has generalized weakness. HEENT AND NECK: Exam within normal limits. CARDIOVASCULAR SYSTEM: Heart rate is regular in rate and rhythm. S1 and S2 normally audible. LUNGS: Clear to auscultation. ABDOMEN: Soft, nontender. No obvious organomegaly. Bowel sounds are present. EXTREMITIES: Without significant cyanosis or edema. IMPRESSION: 1. Bilateral upper extremity Dopplers negative for deep venous thrombosis. The patient with hip fracture status post open reduction and internal fixation, postop day #4. The patient to work with physical therapy. 2. Advanced adult failure to thrive. The patient requires rehabilitation, waiting for Food Preparer to arrange for transfer to a rehab facility. 3. Benign essential hypertension, treated and controlled. 4. Onychomycosis, treated by Podiatry. 5. Urine cultures were negative. 6. Leukocytosis. I will repeat blood counts in the morning. 7. Pneumonitis and shortness of breath, improving with treatment. 8. Protein-calorie malnutrition. The patient working with dietary. 9. Benign essential hypertension. Blood pressures to be monitored and treated. 10. Adult failure to thrive, recurrent falls. The patient worked with physical therapy. DARLEEN DUNN MD CM:PNTRANS 25 14 DARLEEN DUNN MD 06/11/182115 interface
--- NOTE | ~2018-06-03 | CON ---
[place], [place] REPORT OF CONSULTATION NAME[id number] UNIT #: [id number] ROOM: 524 DOCTOR: STACY HARRIS MD BIRTHDATE: [birth year] DOS: 06/11/2018 PULMONARY CONSULTATION, EVALUATION AND MANAGEMENT CONSULTATION REQUESTED BY: Dr. Marleni Santos. REASON FOR CONSULTATION: To assess the patient for possibility of current pulmonary embolism. Consultation asked for the patient and completed on the date of 06/11/2018 for assessment of abnormal VQ scan. HISTORY OF PRESENT ILLNESS: This is a patient who has been noted with history of Alzheimer's dementia. The patient currently staying at the [facility]. The patient has been getting rehabilitation where she slipped on the sheet resulting in acute left femoral fracture for the patient. The patient has been hospitalized on the 06/03/2018 and underwent open reduction and internal fixation of the hip fracture for this patient by Dr. Castillo, 06/07/2018. The patient also noted low grade fever as well leukocytosis. The patient has been assessed by the Infectious Disease services for the patient for that reason. She has been also assessed by Cardiology Service for some heart problem. She has a V/Q scan done yesterday that has reported a high probability of a possibility of pulmonary embolism consideration in the left lower lobe. The patient had a CT scan of the chest done on this admission earlier that does not show any acute infiltration. She developed acute coronary injury secondary to ATN for this patient as well, which has been treated. The patient has been noted awake and alert this morning. History of dementia, cannot give any history. All the history is contained documented to review of the past medical records review for the patient for my consultation in the beginning of 04/2018. Assessment at other physician note for current nurses' note and the other physician's notes. PAST MEDICAL HISTORY: Known with: 1. History of chronic Alzheimer dementia. 2. An adult failure to thrive. 3. History of bronchial asthma/COPD. 4. Hypothyroidism. 5. Non-ST segment elevation myocardial infarction, 2017. 6. History of coronary artery disease. 7. Acute atrial fibrillation, which is chronic. 8. Chronic constipation. 9. Gastroesophageal reflux. 10. General anxiety disorder. 11. Depression. PAST SURGICAL HISTORY: 1. Cardiac catheterization. 2. Therapeutic bronchoscopy in 03/2018 for the assessment of the ongoing cough for the patient and other symptom nonresolving with the treatment. 3. ORIF of the left of the patient on 06/07/2018 on this admission. SOCIAL HISTORY: The patient is , has 2 children, was living, was [place], [place] REPORT OF CONSULTATION NAME: ISABELLA BAH UNIT #: [id number] ROOM: 524 DOCTOR: STACY HARRIS MD BIRTHDATE: [birth year] currently treated at the nursing facility for rehabilitation purposes after last hospitalization. There were no history of alcohol use, illicit drug use were known. Tobacco use was known since teenager, pack of cigarettes per day until 30 years ago. FAMILY HISTORY: Father at 64 with complications of chronic alcohol use. Mother at 62 years with complications of an accident. CURRENT MEDICATIONS: Administered for the patient was noted as IV therapeutic heparin, Remeron, DuoNeb, vitamin D, sertraline, levothyroxine, clonidine, Coreg, gabapentin, Rocephin, vancomycin, and others. DRUG ALLERGIES: Noted no known drug allergies. PHYSICAL EXAMINATION: GENERAL: This is an 82-year-old female patient who has been currently noted comfortable at this time, lying in the bed. Height of 5 feet 2 inches, weight of 149, BMI 27 recorded by the nurses on admission. VITAL SIGNS: The patient's temperature noted low grade on 06/09/2018 was noted afebrile with a low-grade fever noted earlier as well up to 101 degrees Fahrenheit on the 06/08/2018 this month. Respiratory rate ranges between 24-18. Heart rate of 75-65, blood pressure for this patient was recorded as 148/54-182/49 at noon. HEENT: Head was atraumatic. Eyes nonicterus. NECK: Supple. CARDIOVASCULAR: S1, S2 was noted audible. LUNGS: The patient was noted with general reduction of the breath sounds bilaterally. There were no wheeze or crackles heard. ABDOMEN: Soft, nontender. Bowel sounds present. EXTREMITIES: The patient noted currently partially mobilization of the left lower extremity because of the current surgery. No obvious gross musculoskeletal abnormalities were noted. CENTRAL NERVOUS SYSTEM: The patient noted awake and alert with confusion. Remaining central nervous system could not be examined with history of dementia. LABORATORY DATA: CBC that was done yesterday 06/10/2018, WBC count 17.2, hemoglobin 9.5 and hematocrit 29.0 and platelet count 269,000. PTT of the patient noted at 25 yesterday. The blood culture from 06/08/2018 showed no bacterial growth. Vancomycin trough level of 19, but noted 16.8, hemoglobin of 8, hematocrit 24.9. Lap score for the patient that was don for the patient noted essentially normal score. The PTT was noted last evening for the patient at 20:48 hours as greater than 250. PT/INR and PTT which was done this morning were normal. Ultrasound of the lower extremity of the patient was completed this morning noted without any evident deep venous thrombosis. Repeat PTT later for the patient this afternoon was 38. Chest x-ray that was done 2 view was assessed for this patient was noted without any acute pulmonary infiltration. V/Q scan for the patient that was done 06/10/2018 was noted with decreased perfusion of the right lower lobe with a V/Q mismatch for this patient highly suggestive of possibility of pulmonary embolism. CT scan of chest review of the patient on 06/08/2018 for the patient was noted without any acute pulmonary [place], [place] REPORT OF CONSULTATION NAME: ISABELLA BAH UNIT #: [id number] ROOM: 524 DOCTOR: JAVON MCCRAY MD,[facility] BIRTHDATE: [birth year] infiltration with a trace pleural fluid, which are noted previously, seemed to be resolved completely. There were no abnormal nodules or other opacities. IMPRESSION: 1. The patient's current history of atrial fibrillation with current controlled response as well. 2. Mild acute and chronic kidney injury for the patient seemed to be improving. 3. Acute pulmonary embolism for the patient may get the first diagnosed with this patient in the assessment with the recent surgery. PLAN OF MANAGEMENT: Based on the current clinical history for the patient and consideration of acute pulmonary embolus, the patient was started on the intravenous therapeutic heparin. The dose will be adjusted. The patient to maintain a PTT for this patient in the therapeutic range, the Xarelto has been already discontinued. Monitoring INR for the patient. Consider using either Xarelto for this patient adjusted to kidney function or preferably might be Coumadin for the management of the current acute pulmonary embolism. Monitor respiratory status or other complication related to use of the heparin for the anemia and thrombocytopenia as well. Continue pain management. Leukocytosis, which is already addressed by the Nephrology Service may be related to stress and trauma for this patient and not consistent with any acute infection so far isolated patient in any parts of the body with extensive investigations. Supportive plan of management, care plan and therapies. Thanks for allowing me to participate in the care of this patient. STACY ALEJANDRO MD CM:CONSTR:REPORT OF CONSULTATION 1532 06/22/18 0745 interface
--- NOTE | ~2018-06-03 | CON ---
[place], [place] REPORT OF CONSULTATION NAME: ISABELLA BAH UNIT #: [id number] ROOM: 524 DOCTOR: PRESTON QUIROS DPM BIRTHDATE: [birth year] DATE: 06/08/18 ADDENDUM TO RESIDENT REPORT: I rounded with the resident and concur with their diagnosis and treatment as documented by the resident. PRESTON QUIROS DPM CM:CONSTR:REPORT OF CONSULTATION 1030 07/06/18 1554 LUIS SMITH [email or web address]
--- NOTE | ~2018-06-03 | O ---
[place], [place] OPERATIVE NOTE NAME: [facility]LLA [facility]AH [id number] UNIT #: [id number] ROOM: 524 DOCTOR: SANTINO CASTILLO DO BIRTHDATE: [birth year] DOS: 06/07/2018 PREOPERATIVE DIAGNOSIS: Left hip femoral neck fracture with displacement. POSTOPERATIVE DIAGNOSIS: Left hip femoral neck fracture with displacement. PROCEDURE: Left hip femoral Endo prosthesis with bipolar head. SURGEON: Santino Castillo DO. DISHTANK OPERATOR: Ronal Resendez. ANESTHESIA: DALIA Alvarez, Spinal. INDICATIONS: The patient is an 82-year-old female with a history of a fall at a [facility] facility, where she suffered a fracture of the left femoral neck with displacement. At the time of admission, the patient had an elevated white count and a workup was performed for evaluation of sepsis and cultures remained negative. Infectious Disease was consulted and recommended no further treatment that the white count was due to steroid use. The risks and benefits of the procedure were explained to the patient and her daughter preoperatively. Preoperative labs and x-rays were obtained. PROCEDURE: The patient was marked in the holding area for the left hip. The patient was brought to the operative suite. Spinal anesthetic was performed by Anesthesia. The patient was placed side lying in a lateral decubitus position with the left lower extremity elevated. A pegboard was used to hold the position. All bony prominences were well-padded. The timeout was performed. The left lower extremity was prepped and draped in the usual orthopedic fashion. The posterior or southern incision was marked with a marking pen. The area was injected with Marcaine 0.5% with epinephrine. The incision was made sharply with a scalpel. Subcutaneous tissue was spread down to the level of the gluteus fascia. The gluteus fascia was divided along its fibers and the gluteus musculature as well. The short external rotators were identified and tagged with a suture. These were released from their insertion on the greater trochanter. These were retracted posteriorly and the fracture was identified. The neck was cleared of soft tissue and capsule. The cutting guide was put into place and the calcar cut was made with an oscillating saw. This was completed with an osteotome. The femoral head was removed using a Steinmann pin and a skid. The area was copiously irrigated with normal saline. The Charnley retractor was put into place. This was followed by placement of the femoral neck retractor. The box osteotome was used to lateralize the stem. This was followed by the straight awl, which was placed manually followed by the chili pepper starting broach. The broaches were then utilized with attention to anteversion beginning with a size 8 and progressing to a size 11. The size 11 was noted to have adequate fit and fill. Trial head and neck were placed over the broach and the reduction of the femoral head into the acetabulum was performed. The left hip was taken into flexion past 90, extension to 10, [place], [place] OPERATIVE NOTE NAME: ISABELLA BAH UNIT #: [id number] ROOM: 524 DOCTOR: SANTINO CASTILLO DO BIRTHDATE: [birth year] internal and external rotation and shucking. This was found to be adequate without evidence of instability. The trials were removed. The area was copiously irrigated with normal saline. The prosthesis was then put into place utilizing DePuy Corail stem, high offset size 11 followed by cold welding of the Articul/orestes femoral head 28 mm x 1.5 mm and the bipolar head, which was 28 mm inner diameter and 46 mm outer diameter. This was cold welded into place. The reduction was performed. The hip was again taken through a range of motion, flexion past 90, extension to 10 internal and external rotation at 90 and shucking. The hip was noted to be stable. The area was copiously irrigated with normal saline. Any bleeding was controlled with electrocautery. The wound was closed in a layered fashion using 0 Vicryl to close the short external rotators followed by 0 Vicryl and the epi-gluteus fascia and 2-0 Vicryl at the adipose layer. The closure was completed with skin molly. The incision was again injected with Marcaine 0.5% with epinephrine. The dressing was applied Xeroform, ABDs, 4 x 4s and Tegaderm. The abduction pillow was put into place. The patient was placed supine and taken to the recovery room in satisfactory condition. Sponge and needle count correct. ESTIMATED BLOOD LOSS: 200 mL. SPECIMENS: Femoral head and neck. DRAINS: None. PACKING: None. COMPLICATIONS: None. IMPLANTS: DePuy Corail size 11 high offset stem with a bipolar head. A 28 mm inner diameter, 46 mm outer diameter with a 1.5 x 28 mm Articul/orestes head. The patient was noted to receive vancomycin 1 gram IV piggyback preoperatively. [place], [place] OPERATIVE NOTE NAME: ISABELLA BAH UNIT #: [id number] ROOM: 524 DOCTOR: SANTINO CASTILLO DO BIRTHDATE: [birth year] SANTINO CASTILLO DO CM:OPRECORD:OPERATIVE NOTE 1316 1402 SANTINO CASTILLO DO 06/07/18 1436 interface
--- NOTE | ~2018-06-03 | WRIGHTHP ---
[place], [place] PATIENT HISTORY AND PHYSICAL EXAM NAME: ISABELLA BAH [facility] #: [id number] UNIT #: [id number] ROOM: 528 DOCTOR: ABNER CHEN MD BIRTHDATE: [birth year] DOS: 06/03/2018 HISTORY OF PRESENT ILLNESS: The patient is 82 years old. The patient was discharged from the hospital on the 7th of this month. She had a fall at the rehabilitation suites and she was brought back to the Emergency Room. This time on evaluation, she was found to have hip fracture and she was admitted. She denies having any complaints this morning. States that she feels fairly good. Denies having any chest pains or palpitations. The patient states that her quilt that was on top of her bed was pretty silky and she tried to remove it, so she can get back in bed and she slipped on it and fell down. PAST MEDICAL HISTORY: Significant for: 1. Recent hospitalization for UTI. 2. Benign hypertension. 3. Chronic obstructive pulmonary disease acute exacerbation. 4. Paroxysmal atrial fibrillation. 5. Moderate protein calorie malnutrition. 6. Chronic elevation of troponin, possibly from chronic kidney disease. 7. Hypothyroidism. 8. Failure to thrive, adult. 9. Protein-calorie malnutrition, moderate. 10. Alzheimer's dementia, late onset. 11. Generalized anxiety disorder. 12. Systolic dysfunction causing congestive heart failure. 13. Normal pressure hydrocephalus. 14. Mixed hyperlipidemia. 15. Chronic atrial fibrillation, not a candidate for Coumadin. MEDICATIONS: She is currently on are clonidine, Lasix, MiraLax, aspirin, Remeron, levothyroxine, hydralazine, gabapentin, spironolactone, Zoloft, Coreg, Tylenol and Bactrim-DS. SOCIAL HISTORY: Nonsmoker, does not use any alcohol. PHYSICAL EXAMINATION: GENERAL: She is awake and alert and oriented, pleasant, does answer questions appropriately. VITAL SIGNS: Graphic trend shows a pressure of 135/53, pulse of 64, respirations 16, temperature 98. LUNGS: Diminished breath sounds. No wheezes, rales or rhonchi heard. HEART: Regular. ABDOMEN: Obese, soft. EXTREMITIES: Without any edema. Left leg is externally rotated and shortened. No bruising noticed in the hips. At the time of admission, x-ray of the hip shows an acute displaced mildly impacted left femoral neck fracture. Chest x-ray shows no evidence of CHF. LABORATORY DATA: Troponin 0.062. Protime 11 with an INR of 1.1. WBC count was 23.1 with a hemoglobin of 9.6, hematocrit 29.7, platelets 286. [place], [place] PATIENT HISTORY AND PHYSICAL EXAM NAME: ISABELLA BAH UNIT #: [id number] ROOM: 528 DOCTOR: ABNER CHEN MD BIRTHDATE: [birth year] glucose 132, BUN 24, creatinine 1.23, sodium 139, potassium 4.9, chloride 106, bicarbonate 25. ASSESSMENT AND PLAN: 1. Fall with acute fracture of the hip. Consult Dr. Castillo. Awaiting surgery, most likely will not be done until Wednesday. 2. Elevated white cell count, possibly from the recent use of steroids. It is coming down. The patient does not seem to have any evidence of an acute infectious process. She was on Bactrim for urinary tract infection and should be finishing her course soon. So, instead she is placed on Rocephin IV and continue checking the white cell count. 3. Chronic elevation of troponin from chronic kidney disease, no workup planned. 4. Chronic kidney disease. Slow IV hydration was given. Because of chronic systolic dysfunction and congestive heart failure would avoid excessive hydration if we can. 5. Alzheimer's dementia, late onset. Continue home meds. 6. Adult failure to thrive with falls, may go back to the group home when stable after the surgery is performed. ABNER CHEN MD CM:HISPHYS:PATIENT HISTORY AND PHYSICAL EXAMINATION 0835 9 ABNER CHEN MD 06/04/1808 interface
--- NOTE | ~2018-06-03 | PR ---
[place], [place] PROGRESS NOTE NAME: ISABELLA BAH UNIT #: [id number] ROOM: 524 DOCTOR: ABNER CHEN MD BIRTHDATE: [birth year] DOS: 06/06/2018 SUBJECTIVE: The patient is doing well, does not have any new complaints. OBJECTIVE: VITAL SIGNS: Graphic trend shows pressure of 152/43, pulse of 60, respirations 20, temperature 99.3. LUNGS: Diminished breath sounds, very few fine wheezes heard. HEART: Regular. ABDOMEN: Obese. EXTREMITIES: Without any edema. Left leg externally rotated and shortened. Blood cultures are negative. CT of the chest shows emphysema. No other pathology was noted. LABORATORY DATA: No labs available this morning. CBC is pending. ASSESSMENT AND PLAN: 1. Elevated white cell count, most likely reactive. The CAT scan as well as blood cultures have come back negative. The patient is cleared for surgery. The white cell count is pending this morning. 2. Chronic obstructive pulmonary disease. Add DuoNeb. 3. Left hip fracture, awaiting open reduction and internal fixation. ABNER CHEN MD CM:PNTRANS 0850 1545 ABNER CHEN MD 06/27/18 0907 interface
--- NOTE | ~2018-06-03 | PR ---
[place], [place] PROGRESS NOTE NAME: [id number] UNIT #: [id number] ROOM: 524 DOCTOR: ABNER CHEN MD BIRTHDATE: [birth year] DOS: 06/09/2018 SUBJECTIVE: The patient is about the same. She does not have any new complaints. She is sitting up in a chair, ready to eat her breakfast. OBJECTIVE EXAMINATION: GENERAL: She is awake, alert, and oriented. VITAL SIGNS: Blood pressure is 109/45, pulse of 60, respirations 20, and temperature 98.6. LUNGS: Diminished breath sounds, a few fine wheezes which is chronic. HEART: Regular. ABDOMEN: Obese, soft, nontender. EXTREMITIES: Without any edema. Left hip site is okay and no drainage noticed. Dressings mostly dry. LABORATORY DATA: CT of the abdomen and pelvis as well as the chest were negative except for possibility of acute bronchiolitis. CBC is not available yet. BMP: Glucose 151. BUN 38, creatinine 1.84. Sodium 137, potassium 4.3, chloride 105, bicarbonate 22. Urinalysis 1+ protein, 3+ bacteria. Blood cultures negative, no bacterial growth. ASSESSMENT AND PLAN: 1. The patient who presents with hip fracture status post ORIF postop day #2 with a low-grade fever, which has now resolved. White cell count again still not available yet, possibly just reactive, so far no infectious process was noted. The patient continues to remain on vancomycin. 2. Benign hypertension. Pressures have run slightly on the low side. Antihypertensives have been discontinued. 3. Adult failure to thrive. Social service has been consulted for discharge planning. ABNER CHEN MD CM:PNTRANS 7 7 ABNER CHEN MD 06/09/1839 interface
--- NOTE | ~2018-06-03 | PR ---
[place], [place] PROGRESS NOTE NAME: [id number] UNIT #: [id number] ROOM: 524 DOCTOR: ABNER CHEN MD BIRTHDATE: [birth year] DOS: 06/05/2018 SUBJECTIVE: The patient is resting comfortably, does not have any complaints. Nursing staff did not report any problems. OBJECTIVE: VITAL SIGNS: Blood pressure is 124/76, pulse of 80, respirations 20, temperature 97.9. LUNGS: Clear. HEART: Regular. ABDOMEN: Soft. EXTREMITIES: Without any edema. LABORATORY DATA: MRSA of the nares was negative. No labs available at the time of dictation. ASSESSMENT AND PLAN: 1. Fall with fracture of the left hip. Awaiting ORIF. 2. Elevated white cell count, possibly steroid effect. The patient was placed on antibiotics by the hospitalist, which have continued. I am awaiting the CBC. The patient does not have any evidence of any ongoing infectious process. Urine culture was reflexed. It is unavailable yet. 3. CT of the chest will be ordered today because there is a diagnosis of pneumonitis made in the ER, but clinically and radiologically according to the chest x-ray, there is no evidence of pneumonitis, so we will clarify that using a CT chest. If white cell count comes down and the CT of the chest is negative, the patient should be cleared for surgery. ABNER CHEN MD CM:PNTRANS 0639 0739 ABNER CHEN MD 06/27/18 0907 interface
--- NOTE | ~2018-06-03 | CON ---
[place], [place] REPORT OF CONSULTATION NAME: ISABELLA BAH UNIT #: [id number] ROOM: 524 [facility] BIRTHDATE: [birth year] DOS: 06/05/2018 Agree with the assessment and plan made by the nurse practitioner, Emmie Archuleta. I reviewed the labs and imaging, made the necessary changes in the note. Wendi Farris MD CM:CONSTR:REPORT OF CONSULTATION 1645 06/08/18 0456 interface
--- NOTE | ~2018-06-03 | EKG ---
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
[~2018-06-03 07:23] MED LIST changes: +CARVEDILOL6.25 MG PO; +CLONIDINE HCL0.2 MG PO; +GLYCOLAX119 GM PO; +Hydralazine Hyd25 MG PO; +LASIX20 MG PO; +NEURONTIN100 MG PO; +REMERON15 M2 PO; +SEPTDS PO; +TYLENOL325 M3 PO
[2018-06-03] MEDS ORDERED: VITAMIN D34000 UNIT PO (07:31)
[2018-06-03] MEDS ORDERED: LASIX20 MG PO (07:31)
[2018-06-03] MEDS ORDERED: ASPIRIN81 M1 PO (07:32)
[2018-06-03] MEDS ORDERED: BREO ELLIPTA 11 EACH INH (07:32)
[2018-06-03] MEDS ORDERED: MIRALAX POWDER255 G1 PO (07:32)
[2018-06-03] MEDS ORDERED: Hydralazine Hyd25 MG PO (07:33)
[2018-06-03] MEDS ORDERED: NEURONTIN100 MG PO (07:33)
[2018-06-03] MEDS ORDERED: ALDACTONE25 MG PO (07:33)
[2018-06-03] MEDS ORDERED: REMERON15 M2 PO (07:34)
[2018-06-03] MEDS ORDERED: CLONIDINE0.2 MG PO (07:34)
[2018-06-03] MEDS ORDERED: ZOLOFT100 MG PO (07:34)
[2018-06-03] MEDS ORDERED: COREG6.25 MG PO (07:34)
[2018-06-03] MEDS ORDERED: Synthroid,Lev100 MCG PO (07:35)
[2018-06-03] MEDS ORDERED: MILK OF MA2400 MG/10 PO (07:36)
[2018-06-03] MEDS ORDERED: PROAIR HFA8.5 GM INH (07:36)
[2018-06-03] MEDS ORDERED: TYLENOL EXTRA500 M2 PO (07:37)
[2018-06-03 08:06] LABS: HEMATOCRIT 29.7 % (37.0-47.0); HEMOGLOBIN 9.6 g/dl (12.0-16.0); MEAN CORPUSCULAR HGB 32.7 pg (27.0-31.0); MEAN CORPUSCULAR HGB CONC 32.3 g/dl (33.0-37.0); MEAN PLATELET VOLUME 9.8 fl (9.6-12.3); PLATELET COUNT AUTOMATED 286 10*3/uL (130-400); RED BLOOD COUNT 2.94 10*6/uL (4.10-5.10); RED CELL DISTRI WIDTH 15.1 % (0-14.5); WHITE BLOOD COUNT 23.1 10*3/uL (4.8-10.8)
[2018-06-03 08:16] LABS: ACT PARTIAL THROMBO TIME 23.2 SECONDS (20.8-31.5)
[2018-06-03 08:20] LABS: ALBUMIN 2.8 gm/dl (3.1-4.5); CREATININE 1.23 mg/dL (0.55-1.02); POTASSIUM 4.9 mmol/L (3.5-5.1); TOTAL PROTEIN 6.2 gm/dL (6.4-8.2)
[2018-06-03 08:23] LABS: PLATELET SUFFICIENCY NORMAL (NORMAL); POLYCHROMASIA SLIGHT; TOTAL CELLS COUNTED 100 #CELLS; TOXIC GRANULATION SLIGHT
[2018-06-03 08:24] LABS: TROPONIN I 0.078 ng/ml (<0.045)
[2018-06-03 08:42] LABS: BILIRUBIN NEGATIVE (NEGATIVE); BLOOD NEGATIVE (NEGATIVE); CLARITY CLEAR (CLEAR); COLOR YELLOW (YELLOW); GLUCOSE NEGATIVE (NEGATIVE); KETONE NEGATIVE (NEGATIVE); LEUKO ESTERASE NEGATIVE (NEGATIVE); NITRITE NEGATIVE (NEGATIVE); SPECIFIC GRAVITY <= 1.005 (1.005-1.030); UROBILINOGEN 0.2 E.U./dl (0.2-1.0)
[2018-06-03 08:51] LABS: RBC 0-2 rbc/hpf (0-2); WBC 0-2 wbc/hpf (0-5)
[2018-06-04] VITALS: BP 135/53
[2018-06-04 06:40] LABS: HEMATOCRIT 28.7 % (37.0-47.0); HEMOGLOBIN 8.8 g/dl (12.0-16.0); MEAN CELL VOLUME 102.5 fl (81.0-99.0); MEAN CORPUSCULAR HGB 31.4 pg (27.0-31.0); MEAN CORPUSCULAR HGB CONC 30.7 g/dl (33.0-37.0); MEAN PLATELET VOLUME 10.2 fl (9.6-12.3); PLATELET COUNT AUTOMATED 239 10*3/uL (130-400); RED CELL DISTRI WIDTH 15.6 % (0-14.5); WHITE BLOOD COUNT 16.9 10*3/uL (4.8-10.8)
[2018-06-04 07:03] LABS: ACT PARTIAL THROMBO TIME 24.5 SECONDS (20.8-31.5)
[2018-06-04 07:10] LABS: PLATELET SUFFICIENCY NORMAL (NORMAL); POLYCHROMASIA SLIGHT; TOTAL CELLS COUNTED 100 #CELLS; TOXIC GRANULATION SLIGHT
[2018-06-04 07:28] LABS: POTASSIUM 4.8 mmol/L (3.5-5.1)
[2018-06-04 07:43] LABS: ALBUMIN 2.6 gm/dl (3.1-4.5); CREATININE 1.22 mg/dL (0.55-1.02); FREE T4 1.05 ng/dl (0.76-1.46); PHOSPHOROUS 3.4 mg/dL (2.5-4.9); THYROID STIM HORMONE (HS) 5.65 uIU/ml (0.358-4.75); TOTAL PROTEIN 5.8 gm/dL (6.4-8.2)
[2018-06-04 08:00] VITALS: BP 148/49
[2018-06-04 12:00] VITALS: BP 132/50
[2018-06-04 16:00] VITALS: BP 150/55
[2018-06-04 20:00] VITALS: BP 136/58
[2018-06-05] VITALS: BP 124/76
[2018-06-05 06:21] LABS: HEMATOCRIT 29.5 % (37.0-47.0); HEMOGLOBIN 9.1 g/dl (12.0-16.0); MEAN CELL VOLUME 103.9 fl (81.0-99.0); MEAN CORPUSCULAR HGB CONC 30.8 g/dl (33.0-37.0); MEAN PLATELET VOLUME 10.6 fl (9.6-12.3); PLATELET COUNT AUTOMATED 244 10*3/uL (130-400); RED BLOOD COUNT 2.84 10*6/uL (4.10-5.10); RED CELL DISTRI WIDTH 15.5 % (0-14.5); WHITE BLOOD COUNT 17.8 10*3/uL (4.8-10.8)
[2018-06-05 06:48] LABS: ATYPICAL LYMPHS 1 % (0-0); TOTAL CELLS COUNTED 100 #CELLS
[2018-06-05 06:49] LABS: PLATELET SUFFICIENCY NORMAL (NORMAL); POLYCHROMASIA SLIGHT
[2018-06-05 06:50] LABS: POTASSIUM 4.7 mmol/L (3.5-5.1)
[2018-06-05 06:52] LABS: CREATININE 1.34 mg/dL (0.55-1.02)
[2018-06-05 12:00] VITALS: BP 127/45
[2018-06-05 16:00] VITALS: BP 130/51
[2018-06-05 20:00] VITALS: BP 141/42
[2018-06-06] VITALS: BP 152/43
[2018-06-06 08:00] VITALS: BP 160/58
[2018-06-06 10:01] LABS: HEMATOCRIT 29.4 % (37.0-47.0); HEMOGLOBIN 9.2 g/dl (12.0-16.0); MEAN CELL VOLUME 103.2 fl (81.0-99.0); MEAN CORPUSCULAR HGB 32.3 pg (27.0-31.0); MEAN CORPUSCULAR HGB CONC 31.3 g/dl (33.0-37.0); MEAN PLATELET VOLUME 9.9 fl (9.6-12.3); PLATELET COUNT AUTOMATED 270 10*3/uL (130-400); RED BLOOD COUNT 2.85 10*6/uL (4.10-5.10); RED CELL DISTRI WIDTH 15.6 % (0-14.5); WHITE BLOOD COUNT 16.7 10*3/uL (4.8-10.8)
[2018-06-06 11:07] LABS: TOTAL CELLS COUNTED 100 #CELLS
[2018-06-06 11:08] LABS: PLATELET SUFFICIENCY NORMAL (NORMAL); POLYCHROMASIA SLIGHT; TOXIC GRANULATION SLIGHT
[2018-06-06 12:00] VITALS: BP 121/88
[2018-06-06 16:00] VITALS: BP 156/56
[2018-06-06 16:40] LABS: VITAMIN D, 25-HYDROXY 39.6 ng/mL (30-100)
[2018-06-06 18:54] LABS: HEMATOCRIT 27.8 % (37.0-47.0); HEMOGLOBIN 8.8 g/dl (12.0-16.0); MEAN CELL VOLUME 103.3 fl (81.0-99.0); MEAN CORPUSCULAR HGB 32.7 pg (27.0-31.0); MEAN CORPUSCULAR HGB CONC 31.7 g/dl (33.0-37.0); PLATELET COUNT AUTOMATED 276 10*3/uL (130-400); RED BLOOD COUNT 2.69 10*6/uL (4.10-5.10); RED CELL DISTRI WIDTH 15.3 % (0-14.5); WHITE BLOOD COUNT 17.9 10*3/uL (4.8-10.8)
[2018-06-06 19:27] LABS: BASOPHILS 1 % (0-1); TOTAL CELLS COUNTED 100 #CELLS
[2018-06-06 19:28] LABS: PLATELET SUFFICIENCY NORMAL (NORMAL)
[2018-06-06 19:29] LABS: TOXIC GRANULATION SLIGHT
[2018-06-06 20:00] VITALS: BP 169/58
[2018-06-07] VITALS (12 sets, daily range): BP systolic 96–156; BP diastolic 37–69
[2018-06-07 08:25] LABS: HEMATOCRIT 29.2 % (37.0-47.0); MEAN CELL VOLUME 103.2 fl (81.0-99.0); MEAN CORPUSCULAR HGB 31.8 pg (27.0-31.0); MEAN CORPUSCULAR HGB CONC 30.8 g/dl (33.0-37.0); MEAN PLATELET VOLUME 10.1 fl (9.6-12.3); PLATELET COUNT AUTOMATED 281 10*3/uL (130-400); RED BLOOD COUNT 2.83 10*6/uL (4.10-5.10); RED CELL DISTRI WIDTH 14.9 % (0-14.5); WHITE BLOOD COUNT 15.9 10*3/uL (4.8-10.8)
[2018-06-07 08:47] LABS: BASOPHILS 1 % (0-1); TOTAL CELLS COUNTED 100 #CELLS
[2018-06-07 08:48] LABS: PLATELET SUFFICIENCY NORMAL (NORMAL)
[2018-06-07 08:49] LABS: TOXIC GRANULATION SLIGHT
[2018-06-07 09:51] LABS: BUN 24 mg/dl (7-24); CHLORIDE 105 mmol/L (98-107); CREATININE 0.89 mg/dL (0.55-1.02); POTASSIUM 4.4 mmol/L (3.5-5.1); SODIUM 139 mmol/L (136-145)
[2018-06-08 01:48] VITALS: BP 156/60
[2018-06-08 06:37] LABS: HEMATOCRIT 26.4 % (37.0-47.0); HEMOGLOBIN 8.2 g/dl (12.0-16.0); MEAN CELL VOLUME 103.9 fl (81.0-99.0); MEAN CORPUSCULAR HGB 32.3 pg (27.0-31.0); MEAN CORPUSCULAR HGB CONC 31.1 g/dl (33.0-37.0); MEAN PLATELET VOLUME 9.7 fl (9.6-12.3); PLATELET COUNT AUTOMATED 318 10*3/uL (130-400); RED BLOOD COUNT 2.54 10*6/uL (4.10-5.10); WHITE BLOOD COUNT 24.7 10*3/uL (4.8-10.8)
[2018-06-08 06:58] LABS: CREATININE 1.34 mg/dL (0.55-1.02)
[2018-06-08 07:02] LABS: POTASSIUM 4.8 mmol/L (3.5-5.1)
[2018-06-08 07:13] LABS: TOTAL CELLS COUNTED 100 #CELLS
[2018-06-08 07:14] LABS: PLATELET SUFFICIENCY NORMAL (NORMAL)
[2018-06-08 08:00] VITALS: BP 136/40
[2018-06-08 12:00] VITALS: BP 100/40
[2018-06-08 16:00] VITALS: BP 101/44
[2018-06-08 20:00] VITALS: BP 96/53
[2018-06-08 21:19] VITALS: BP 102/46
[2018-06-09] VITALS (9 sets, daily range): BP systolic 109–135; BP diastolic 38–52
[2018-06-09 06:44] LABS: BILIRUBIN NEGATIVE (NEGATIVE); BLOOD TRACE-INTACT (NEGATIVE); CLARITY CLOUDY (CLEAR); COLOR YELLOW (YELLOW); GLUCOSE NEGATIVE (NEGATIVE); KETONE NEGATIVE (NEGATIVE); LEUKO ESTERASE NEGATIVE (NEGATIVE); NITRITE NEGATIVE (NEGATIVE); PH 5.5 (5.0-9.0); SPECIFIC GRAVITY 1.025 (1.005-1.030); UROBILINOGEN 0.2 E.U./dl (0.2-1.0)
[2018-06-09 07:16] LABS: HEMATOCRIT 21.8 % (37.0-47.0); MEAN CELL VOLUME 103.3 fl (81.0-99.0); MEAN CORPUSCULAR HGB 33.2 pg (27.0-31.0); MEAN CORPUSCULAR HGB CONC 32.1 g/dl (33.0-37.0); PLATELET COUNT AUTOMATED 309 10*3/uL (130-400); RED BLOOD COUNT 2.11 10*6/uL (4.10-5.10); WHITE BLOOD COUNT 22.7 10*3/uL (4.8-10.8)
[2018-06-09 07:20] LABS: CREATININE 1.84 mg/dL (0.55-1.02); POTASSIUM 4.3 mmol/L (3.5-5.1)
[2018-06-09 07:25] LABS: BACTERIA 3+; COARSE GRANULAR CAST 15-20
[2018-06-09 10:15] LABS: BASOPHILS 2 % (0-1); PLATELET SUFFICIENCY NORMAL (NORMAL); TOTAL CELLS COUNTED 100 #CELLS
[2018-06-10 00:15] VITALS: BP 124/46
[2018-06-10 01:15] VITALS: BP 128/60
[2018-06-10 06:54] LABS: HEMATOCRIT 24.9 % (37.0-47.0)
[2018-06-10 08:00] VITALS: BP 128/54
[2018-06-10 12:00] VITALS: BP 140/52
[2018-06-10 15:22] LABS: BASO # 0.1 10*3/uL (0.0-0.1); BASO % 0.5 % (0.0-1.0); EOS # 0.3 10*3/uL (0.0-0.4); EOS % 1.8 % (1.0-4.0); HEMOGLOBIN 9.5 g/dl (12.0-16.0); LYMPH # 1.7 10*3/uL (1.3-4.4); LYMPH % 9.8 % (27.0-41.0); MEAN CELL VOLUME 100.3 fl (81.0-99.0); MEAN CORPUSCULAR HGB 32.9 pg (27.0-31.0); MEAN CORPUSCULAR HGB CONC 32.8 g/dl (33.0-37.0); MEAN PLATELET VOLUME 9.5 fl (9.6-12.3); MONO # 1.5 10*3/uL (0.1-1.0); MONO % 8.4 % (3.0-9.0); NEUT # 13.6 10*3/uL (2.3-7.9); NEUT % 78.9 % (47.0-73.0); PLATELET COUNT AUTOMATED 369 10*3/uL (130-400); RED BLOOD COUNT 2.89 10*6/uL (4.10-5.10); RED CELL DISTRI WIDTH 16.5 % (0-14.5); WHITE BLOOD COUNT 17.2 10*3/uL (4.8-10.8)
[2018-06-10 16:00] VITALS: BP 155/43
[2018-06-10 20:00] VITALS: BP 144/47
[2018-06-11] VITALS: BP 148/54
[2018-06-11 06:10] LABS: ACT PARTIAL THROMBO TIME 24.2 SECONDS (20.8-31.5); INTERNATIONAL NORM RATIO 0.9 (2.0-3.5)
[2018-06-11 08:00] VITALS: BP 182/62
[2018-06-11 12:00] VITALS: BP 133/49
[2018-06-11 16:00] VITALS: BP 151/48
[2018-06-11 20:00] VITALS: BP 158/47
[2018-06-11 21:34] VITALS: BP 152/60
[2018-06-12] VITALS: BP 142/44
[2018-06-12 07:08] LABS: BASO # 0.1 10*3/uL (0.0-0.1); BASO % 0.7 % (0.0-1.0); EOS # 0.4 10*3/uL (0.0-0.4); EOS % 3.9 % (1.0-4.0); HEMATOCRIT 25.5 % (37.0-47.0); HEMOGLOBIN 7.8 g/dl (12.0-16.0); LYMPH # 1.7 10*3/uL (1.3-4.4); LYMPH % 15.5 % (27.0-41.0); MEAN CELL VOLUME 101.2 fl (81.0-99.0); MEAN CORPUSCULAR HGB CONC 30.6 g/dl (33.0-37.0); MEAN PLATELET VOLUME 9.2 fl (9.6-12.3); MONO % 9.6 % (3.0-9.0); NEUT # 7.4 10*3/uL (2.3-7.9); PLATELET COUNT AUTOMATED 404 10*3/uL (130-400); RED BLOOD COUNT 2.52 10*6/uL (4.10-5.10); RED CELL DISTRI WIDTH 15.4 % (0-14.5); WHITE BLOOD COUNT 10.8 10*3/uL (4.8-10.8)
[2018-06-12 07:15] LABS: BUN 36 mg/dl (7-24); CHLORIDE 109 mmol/L (98-107); CREATININE 0.99 mg/dL (0.55-1.02); POTASSIUM 4.5 mmol/L (3.5-5.1); SODIUM 141 mmol/L (136-145)
[2018-06-12 08:00] VITALS: BP 148/42
[2018-06-12 12:00] VITALS: BP 148/46
[2018-06-12 16:00] VITALS: BP 124/36
[2018-06-12] MEDS ORDERED: ELIQUIS5 M1 PO (18:51)
[2018-06-12] MEDS ORDERED: HYDROCODONE-AC1 EAC1 PO (18:51)
== END 2018-06-12 20:06 | disposition other institution (70) | DRG 853 ==
LOC: ED 07:23 → EDHOLD 08:49 → 5E 08:49
PROVIDERS: Emergency Medicine; Internal Medicine; Internal Medicine Critical Care Medicine; Orthopaedic Surgery
PROC: 0SRS0JZ Replacement of Left Hip Joint, Femoral Surface with Synthetic Substitute, Open Approach (ICD-10-PCS; principal; 2018-06-07)
PROC: 0HBRXZZ Excision of Toe Nail, External Approach (ICD-10-PCS; 2018-06-08)
PROC: 30233N1 Transfusion of Nonautologous Red Blood Cells into Peripheral Vein, Percutaneous Approach (ICD-10-PCS; 2018-06-09)
DX: A41.9 Sepsis, unspecified organism (principal); I26.99 Other pulmonary embolism without acute cor pulmonale; S72.002A Fracture of unspecified part of neck of left femur, initial encounter for closed fracture; J18.9 Pneumonia, unspecified organism; N17.0 Acute kidney failure with tubular necrosis; E43 Unspecified severe protein-calorie malnutrition; I82.409 Acute embolism and thrombosis of unspecified deep veins of unspecified lower extremity; I50.32 Chronic diastolic (congestive) heart failure; J44.0 Chronic obstructive pulmonary disease with (acute) lower respiratory infection; I13.0 Hypertensive heart and chronic kidney disease with heart failure and stage 1 through stage 4 chronic kidney disease, or unspecified chronic kidney disease; N39.0 Urinary tract infection, site not specified; N18.3 Chronic kidney disease, stage 3 (moderate); E03.9 Hypothyroidism, unspecified; E66.9 Obesity, unspecified; G30.9 Alzheimer's disease, unspecified; F02.80 Dementia in other diseases classified elsewhere, unspecified severity, without behavioral disturbance, psychotic disturbance, mood disturbance, and anxiety; R62.7 Adult failure to thrive; I48.0 Paroxysmal atrial fibrillation; E78.2 Mixed hyperlipidemia; R29.6 Repeated falls; Z96.1 Presence of intraocular lens; F41.1 Generalized anxiety disorder; B35.1 Tinea unguium; I73.9 Peripheral vascular disease, unspecified; D53.9 Nutritional anemia, unspecified; R73.03 Prediabetes; K21.9 Gastro-esophageal reflux disease without esophagitis; D69.6 Thrombocytopenia, unspecified; W01.0XXA Fall on same level from slipping, tripping and stumbling without subsequent striking against object, initial encounter; Y93.89 Activity, other specified; Z79.899 Other long term (current) drug therapy; Z79.82 Long term (current) use of aspirin; Z87.440 Personal history of urinary (tract) infections; Z85.828 Personal history of other malignant neoplasm of skin; Z90.710 Acquired absence of both cervix and uterus; Z90.49 Acquired absence of other specified parts of digestive tract; Z98.49 Cataract extraction status, unspecified eye; Z87.442 Personal history of urinary calculi; Z87.891 Personal history of nicotine dependence; Z83.3 Family history of diabetes mellitus; Z81.1 Family history of alcohol abuse and dependence; I25.2 Old myocardial infarction; Y92.89 Other specified places as the place of occurrence of the external cause; Y99.8 Other external cause status; Z68.27 Body mass index [BMI] 27.0-27.9, adult

== ENCOUNTER 2018-06-26 11:46 | Emergency (ER) | payer MEDICARE, OTHER ==
[~2018-06-26] VITALS: Ht 157.4 cm; Wt 72.6 kg
--- NOTE | ~2018-06-26 | EKG ---
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
[~2018-06-26 11:46] MED LIST changes: +CLONIDINE0.2 MG PO; +COREG6.25 MG PO; +ELIQUIS5 M1 PO; +HYDROCODONE-AC1 EAC1 PO; +MILK OF MA2400 MG/10 PO; +MIRALAX POWDER255 G1 PO; +Synthroid,Lev100 MCG PO; +TYLENOL EXTRA500 M2 PO; +VITAMIN D34000 UNIT PO
[2018-06-26 12:57] LABS: BASO # 0.1 10*3/uL (0.0-0.1); EOS # 0.3 10*3/uL (0.0-0.4); EOS % 2.9 % (1.0-4.0); HEMATOCRIT 29.1 % (37.0-47.0); LYMPH # 2.6 10*3/uL (1.3-4.4); LYMPH % 25.5 % (27.0-41.0); MEAN CELL VOLUME 99.7 fl (81.0-99.0); MEAN CORPUSCULAR HGB 30.8 pg (27.0-31.0); MEAN CORPUSCULAR HGB CONC 30.9 g/dl (33.0-37.0); MEAN PLATELET VOLUME 8.7 fl (9.6-12.3); MONO % 9.8 % (3.0-9.0); NEUT % 60.2 % (47.0-73.0); PLATELET COUNT AUTOMATED 517 10*3/uL (130-400); RED BLOOD COUNT 2.92 10*6/uL (4.10-5.10); RED CELL DISTRI WIDTH 14.4 % (0-14.5)
[2018-06-26 13:09] LABS: BILIRUBIN NEGATIVE (NEGATIVE); BLOOD NEGATIVE (NEGATIVE); CLARITY CLEAR (CLEAR); COLOR YELLOW (YELLOW); GLUCOSE NEGATIVE (NEGATIVE); KETONE NEGATIVE (NEGATIVE); LEUKO ESTERASE NEGATIVE (NEGATIVE); NITRITE NEGATIVE (NEGATIVE); UROBILINOGEN 0.2 E.U./dl (0.2-1.0)
[2018-06-26 13:18] LABS: ALBUMIN 2.5 gm/dl (3.1-4.5); CREATININE 1.19 mg/dL (0.55-1.02); POTASSIUM 4.5 mmol/L (3.5-5.1); TOTAL PROTEIN 6.8 gm/dL (6.4-8.2); TROPONIN I 0.027 ng/ml (<0.045)
[2018-06-26] MEDS ORDERED: MERREM IV1 GM IV (15:05)
== END 2018-06-26 15:32 | disposition home or self-care (01) ==
LOC: ED 11:46
PROVIDERS: Emergency Medicine
DX: N39.0 Urinary tract infection, site not specified (principal); I11.0 Hypertensive heart disease with heart failure; I50.9 Heart failure, unspecified; E78.5 Hyperlipidemia, unspecified; E03.9 Hypothyroidism, unspecified; I48.0 Paroxysmal atrial fibrillation; F03.90 Unspecified dementia, unspecified severity, without behavioral disturbance, psychotic disturbance, mood disturbance, and anxiety; Z79.82 Long term (current) use of aspirin; Z79.899 Other long term (current) drug therapy; Z87.891 Personal history of nicotine dependence; Z90.49 Acquired absence of other specified parts of digestive tract; Z90.710 Acquired absence of both cervix and uterus

== ENCOUNTER → 2018-06-30 | Outpatient (CLI) | payer MEDICARE, OTHER ==
[~2018-06-30] MED LIST changes: +MERREM IV1 GM IV
== END | disposition home or self-care (01) ==
LOC: ORTHO 01:47
DX: I82.409 Acute embolism and thrombosis of unspecified deep veins of unspecified lower extremity (principal); S72.002D Fracture of unspecified part of neck of left femur, subsequent encounter for closed fracture with routine healing; X58.XXXD Exposure to other specified factors, subsequent encounter; Z91.81 History of falling

== ENCOUNTER → 2018-07-22 | Day surgery (SDC) | payer MEDICARE, OTHER | END | disposition home or self-care (01) | LOC: SDC 07-19 11:00 | DX: D64.9 Anemia, unspecified (principal); Z53.8 Procedure and treatment not carried out for other reasons ==

== ENCOUNTER 2018-08-11 03:00 | Inpatient (IN) | payer MEDICARE, OTHER ==
[2018-08-11] VITALS (10 sets, daily range): BP systolic 118–170; BP diastolic 40–63
[~2018-08-11] VITALS: Ht 162.6 cm; Wt 69.1 kg
--- NOTE | ~2018-08-11 | CON ---
[place], [place] REPORT OF CONSULTATION NAME[id number] UNIT #: [id number] ROOM: 401 DOCTOR: JAVON MCCRAY MDSTACY BIRTHDATE: [birth year] DOS: 08/11/2018 PULMONARY CONSULTATION AND EVALUATION AND MANAGEMENT CONSULTATION REQUESTED BY: Víctor Martinez M.D. REASON FOR CONSULTATION: Assess the patient for acute pneumonia. HISTORY OF PRESENT ILLNESS: This is an 82-year-old elderly female patient who has been brought to the hospital by the EMS as the patient has been reporting of hypoxia at the nursing facility. The patient has been recently treated in 05/2018 for acute pulmonary embolism. The patient at that time treated and discharged to the nursing facility. The patient's history was not noted to be reliable. All the history contained in the document; review of the current documentation, the medical record by the other physician, and my previous consultation of 05/2018. She has reported symptoms of shortness of breath and has a known history of Alzheimer dementia. There had been no symptoms of hemoptysis or cough reported in the history, which was obtained by the ER physician. The patient has a chest x-ray done, which reported possibility of developing pneumonia in the left lower lobe. Currently, the patient has been noted comfortable at this time, but unable to provide me any history. REVIEW OF SYSTEMS: Certainly cannot be obtained for this patient since the patient has been known with dementia, unable to provide me any history. PAST MEDICAL HISTORY: 1. The patient was known with acute pulmonary embolism in the left lower lobe in 05/2018. 2. Alzheimer dementia. 3. History of COPD and bronchial asthma. 4. Adult failure to thrive. 5. Hypothyroidism. 6. Coronary artery disease with past myocardial infarction. 7. Permanent atrial fibrillation. 8. Chronic constipation. 9. Gastroesophageal reflux. 10. General anxiety disorder and depression. PAST SURGICAL HISTORY: 1. Cardiac catheterization. 2. Therapeutic bronchoscopy in 03/2018. 3. ORIF of the left hip on 06/07/2018. SOCIAL HISTORY: The patient is a resident of a [facility]. She has not been known with any illicit drug use. Tobacco use reported since teenager, pack of cigarettes per day, discontinued approximately 30 years ago. FAMILY HISTORY: Reported father at 64 years with complications of chronic alcohol use. Mother 62 years with complications of an accident. [place], [place] REPORT OF CONSULTATION NAME: ISABELLA BAH UNIT #: [id number] ROOM: 401 DOCTOR: JAVON MCCRAY MD,STACY BIRTHDATE: [birth year] MEDICATIONS: The medications, which have been used for this patient reported from the nursing facility as use of Eliquis, vitamin D, Lasix, Breo Ellipta, Aldactone, aspirin, hydralazine, gabapentin, Coreg, sertraline, clonidine, Remeron, levothyroxine, ProAir HFA inhaler and p.r.n. medications. DRUG ALLERGIES: Noted as no known drug allergies. PHYSICAL EXAMINATION: GENERAL: An 82-year-old elderly female noted to be comfortable at this time using oxygen supplement nasal cannula. Height of 5 feet 4 inches, weight 154 pounds, BMI 27. VITAL SIGNS: Normal temperature, temperature described as 100 degrees Fahrenheit in the nursing facility per the nursing staff. The respiratory rate between 17-20, heart rate 60-62, blood pressure 121/61-132/55. The pulse oxygen saturation recorded on room air 98% saturation on 2 L 95% saturation. HEENT: Head was atraumatic. Eyes nonicterus. Loss of muscle mastication. NECK: Supple. CARDIOVASCULAR: S1, S2 audible. LUNGS: Scattered crackles in the mid to lower portion of the lungs bilaterally. There is no wheezing. ABDOMEN: Soft, nontender. Bowel sounds present. EXTREMITIES: Noted without any acute edema. MUSCULOSKELETAL: Without any acute obvious deformities. VISIBLE SKIN: No lesions or rashes. CENTRAL NERVOUS SYSTEM: Limited exam. The patient does not appear to have focal deficit. The patient is moving upper and lower extremities upon commands. Further examination could not be done. LABORATORY DATA: CBC this morning; WBC count 9.2, hemoglobin 9, hematocrit 30.0, platelet count was normal. CMP; BUN 25, creatinine was normal. Remaining BMP was normal. Albumin 2.9. CBC this morning; WBC count 8, hemoglobin 9, platelet count 287,000. PT/PTT this morning; INR 1.1, normal PTT. CBC this morning; BUN 26, creatinine 1.19. Remaining LFTs were normal. Lactic acid 0.7. IMPRESSION: The patient will be currently admitted to the hospital possibly due to aspiration and hypoxia. The hypoxia has not been documented on admission, but has been reported as the patient was picked up from the nursing facility. Again, the details are not clear from the EMS report. 2. The patient with possibility of atelectasis and/or pulmonary infiltration or pneumonia with pleural fluid left side with aspiration is a consideration. 3. History of chronic Alzheimer dementia. 4. Chronic obstructive pulmonary disease and bronchial asthma without any evidence of acute exacerbation on physical examination. 5. Multiple other medical problems reported previously. PLAN OF MANAGEMENT: At this time for further assessment of the patient to document if there is pneumonia or not, I will be ordering CT scan of the chest without contrast. The patient has already been getting the anticoagulation with past pulmonary embolism management and remained adequately anticoagulated. Other supportive therapy, plan of management for the patient as well. Usual [place], [place] REPORT OF CONSULTATION NAME: ISABELLA BAH UNIT #: [id number] ROOM: 401 DOCTOR: STACY HARRIS MD BIRTHDATE: [birth year] care, other treatment plan of management and care plan for the patient had already been addressed by the primary care physician will be continued. Obtain the sputum for Gram stain and culture as well. Additional workup for pneumonia will be ordered. In case, if the pneumonia documented at this time, empiric antibiotic will be continued. If there would be significant pleural fluid noted, a thoracentesis could be done for the patient if necessary. Thanks for allowing me to participate in the care of this patient. STACY ALEJANDRO MD CM:CONSTR:REPORT OF CONSULTATION 1443 08/12/18 0158 interface
--- NOTE | ~2018-08-11 | PR ---
[place], [place] PROGRESS NOTE NAME: ISABELLA BAH UNIT #: [id number] ROOM: 401 DOCTOR: ABNER CHEN MD BIRTHDATE: [birth year] DOS: 08/13/2018 SUBJECTIVE: The patient is resting comfortably, does not appear to be in any distress. OBJECTIVE: VITAL SIGNS: Graphic trend shows a pressure 107/44, pulse of 60, respirations 18, temperature 98.2. LUNGS: Diminished breath sounds, but clear. HEART: Regular. ABDOMEN: Obese, soft. EXTREMITIES: Without any edema. ASSESSMENT AND PLAN: 1. Compression atelectasis left lower lobe with a small pleural effusion, most likely aspiration pneumonia. Speech study will be ordered. The patient has normal white cell count without any fever. If chest x-ray shows improvement, we could be discharging the patient back to the intermediate. 2. Possible aspiration pneumonia. Speech therapy will be consulted. 3. History of Alzheimer's dementia, late onset with adult failure to thrive. The patient was a resident of rehab nurse suites, but plan is to discharge her to home when more stable. ABNER CHEN MD CM:PNTRANS 0738 0840 ABNER CHEN MD 08/13/18 0839 interface
--- NOTE | ~2018-08-11 | PR ---
[place], [place] PROGRESS NOTE NAME: [id number] UNIT #: [id number] ROOM: 401 DOCTOR: ABNER CHEN MD BIRTHDATE: [birth year] DOS: SUBJECTIVE: The patient is resting comfortably, does not have any new complaints, had a speech study and she did not fail ____ OBJECTIVE: VITAL SIGNS: Graphic trend shows a pressure of 157/55, pulse of 65, respirations 20, temperature 98.1. LUNGS: Clear. HEART: Regular. ABDOMEN: Soft. EXTREMITIES: Without any edema. No signs of DVT. IMAGING: Chest x-ray showed atelectasis bilaterally. LABORATORY DATA: WBC count is normal at 8.1, hemoglobin 9.0, hematocrit 29.5, platelets 309. BMP: Glucose 97, BUN 19, creatinine 1.10, sodium 144, potassium 3.6, chloride 111, bicarbonate 25. ASSESSMENT AND PLAN: 1. The patient presents with shortness of breath, cough with possibility of atelectasis and pneumonia. She has been treated with antibiotics. She remains afebrile and the white cell count is normal. There is no further progression in the disease. Blood cultures have shown no bacterial growth. 2. Possible aspiration was being raised, so she underwent a speech study, which did not show any issues and they advised that the patient be continued on her soft diet. 3. Dementia with adult failure to thrive. The patient's daughter plans to take her home. Plan is to discharge today. ABNER CHEN MD CM:PNTRANS 0819 1119 ABNER CHEN MD 08/15/18 0413 interface
--- NOTE | ~2018-08-11 | EKG ---
[place], [place] ELECTROCARDIOGRAM REPORT NAME: ISABELLA BAH UNIT #: [id number] ROOM: 401 DOCTOR: DEACON DRAFT REPORT BIRTHDATE: [birth year] [facility] Test Date: 2018-08-11 Test Time: 03:15:42 Pat Name: ISABELLA BAH Department: Room: 401 Gender: F Return Agent Airport: [place] Padgett : 1935 Requested By: JIN GRAHAM Order Number: [id number] Reading MD: Chapito Lundy MD Measurements Intervals [place] Rate: 60 P: TN: 245 QRS: 57 QRSD: 111 T: 6 QT: 490 QTc: 490 Interpretive Statements Atrial-paced rhythm Poor precordial R-wave progression Compared to ECG 06/26/2018 13:03:07 No significant change Electronically Signed On 08-11-2018 17:52:39 PST by Chapito Lundy MD CM:EKGRPT:ELECTROCARDIOGRAM REPORT 1752 JIN BOSWELL DRAFT REPORT JIN GRAHAM DO
--- NOTE | ~2018-08-11 | PR ---
[place], [place] PROGRESS NOTE NAME: ISABELLA BAH UNIT #: [id number] ROOM: 401 DOCTOR: JAVON MCCRAY MD,STACY BIRTHDATE: [birth year] DOS: 08/13/2018 PULMONARY PROGRESS NOTE SUBJECTIVE: The patient has been comfortably sitting on the chair this morning. Denies symptoms of coughing, shortness of breath, chest pain or hemoptysis. Denies symptoms of fever or chills. The patient has known dementia. The symptoms assessment would not be considered reliable; however, the patient was comfortably resting at this time, sitting on the chair, eating her breakfast. OBJECTIVE: VITAL SIGNS: Normal temperature, respiratory rate 18, heart rate 60, blood pressure 107/44. HEENT: Shows head was atraumatic, eyes nonicterus. NECK: Supple. CARDIOVASCULAR: S1 and S2 audible. LUNGS: The patient was noted with crackles in the lungs, more on the left than the right lung. There was no wheezing. ABDOMEN: Soft, nontender. Bowel sounds present. EXTREMITIES: No acute edema. MUSCULOSKELETAL: Without any acute deformities. IMPRESSION: 1. Acute left lower lobe pneumonia with aspiration pneumonia and small pleural fluid, clinically responding to treatment. 2. History of chronic dementia. PLAN OF MANAGEMENT: The patient will be ordered a repeat chest x-ray in the morning to assess the pleural fluid as well as acute pneumonia. Continuation of the bronchodilators and oxygen supplementation as well. Other additional treatment changes will be done based on the progression of the illness. Further care plan of treatment. Supportive therapies. STACY ALEJANDRO MD CM:PNTRANS [id number] [id number] STACY MCCRAY MD 08/13/18 1324 interface
--- NOTE | ~2018-08-11 | DS ---
[place], [place] DISCHARGE SUMMARY [id number] #: [id number] ROOM: 401 DOCTOR: ABNER CHEN MD BIRTHDATE: [birth year] DOS: 08/14/2018 DIAGNOSES: 1. Atelectasis, possible pneumonia. 2. Adult failure to thrive. 3. Alzheimer's dementia, late onset. 4. Chronic obstructive pulmonary disease. 5. Hypothyroidism. 6. Chronic atrial fibrillation and long-term use of anticoagulants. 7. History of deep venous thrombosis and pulmonary embolism. 8. Severe protein-calorie malnutrition. 9. Benign hypertension. 10. Diastolic congestive heart failure by history. 11. Mixed hyperlipidemia. DISCHARGE MEDICATIONS: Ceftin 250 twice a day for 7 days. Rest of the meds are the same as on admission, which are vitamin D 4000 units daily, Lasix 20 daily, MiraLax 17 grams daily, Breo Ellipta 100 one inhalation daily, aspirin 81 daily, spironolactone 25 daily, hydralazine 75 t.i.d., gabapentin 100 t.i.d., Coreg 6.25 b.i.d., sertraline 100 daily, mirtazapine 15 mg daily, clonidine 0.2 b.i.d., levothyroxine 100 mcg daily, albuterol 2 puffs q.6 hours p.r.n. for cough, Eliquis 5 b.i.d., [place] q.i.d. p.r.n., Tylenol 500 q.4 hours p.r.n., milk of magnesia 2400 mg q.12 hours p.r.n. HOSPITAL COURSE: This patient is 82 years old, who was admitted to Dr. Martinez's services. She was a resident of rehab suite where she was undergoing therapy. She started complaining of cough and shortness of breath and she was brought to the Emergency Room. Please refer to H and P dictated by Dr. Martinez for further details. Chest x-ray showed atelectasis, which possibly was hiding pneumonia. Dr. Coffman was also consulted and possibility of aspiration pneumonia was raised and multiple antibiotics were started. Speech study was performed, did not show any evidence of aspiration. Speech recommended that the patient be continued on mechanical soft diet with thin liquids and did not advise any further followup as an outpatient. Social service was consulted and the case management has talked to the family and they would like the patient to be sent home rather than back to [facility]. The patient is relatively stable and has achieved a maximum benefit from a stay here. Chest x-ray shows no further changes. White cell count is normal. Blood cultures are negative. Sepsis has been ruled out. She has chronic kidney disease, which has remained unchanged with a GFR of 47, stage 3 renal failure. The patient will be followed up by her PCP as an outpatient. [place], [place] DISCHARGE SUMMARY NAME: ISABELLA BAH UNIT #: [id number] ROOM: 401 DOCTOR: ABNER CHEN MD BIRTHDATE: [birth year] ABNER CHEN MD CM:DISCHARG [id number] ABNER CHEN MD 08/14/18 1037 interface
--- NOTE | ~2018-08-11 | PR ---
[place], [place] PROGRESS NOTE NAME: ISABELLA BAH UNIT #: [id number] ROOM: 401 DOCTOR: DARLEEN DUNN MD BIRTHDATE: [birth year] DOS: 08/12/2018 SUBJECTIVE: The patient says she is starting to breathe better and she is also working with physical therapy. OBJECTIVE: GENERAL APPEARANCE: The patient is alert and oriented x 3, in no visible distress. VITAL SIGNS: Blood pressure 135/58, heart rate of 60 beats per minute, breathing 16 times per minute, temperature 98 degrees Fahrenheit. HEENT AND NECK: Exam within normal limits. CARDIOVASCULAR SYSTEM: Heart rate is regular in rate and rhythm. S1 and S2 normally audible. LUNGS: Clear to auscultation. ABDOMEN: Soft, nontender. No obvious organomegaly. Bowel sounds are present. EXTREMITIES: Without significant cyanosis or edema. IMPRESSION: 1. The patient with acute exacerbation of chronic obstructive pulmonary disease and shortness of breath improving and some left basilar atelectasis, improving with treatment. 2. Left basilar atelectasis versus small pneumonia, being treated with antibiotics, bronchodilators, oxygen and Dr. Coffman, the office support assistant is also following. 3. Generalized weakness and adult failure to thrive. The patient working with physical therapy and feeling better. 4. hypertension, treated and controlled. 5. Moderate protein calorie malnutrition, being followed by Dietary. 6. Chronic atrial fibrillation. The patient anticoagulated with apixaban. Heart rates are controlled. 7. Hypothyroidism, replaced with thyroid supplements. DARLEEN DUNN MD CM:PNTRANS [id number] DARLEEN DUNN MD 08/12/18 1400 interface
--- NOTE | ~2018-08-11 | PR ---
[place], [place] PROGRESS NOTE NAME: ISABELLA BAH UNIT #: [id number] ROOM: 401 DOCTOR: JAVON MCCRAY MD,STACY BIRTHDATE: [birth year] DOS: 08/12/2018 PULMONARY PROGRESS NOTE SUBJECTIVE: The patient has been noted comfortable at this time, resting on the bed. The patient does have history of dementia, does not complain of any acute new respiratory complaints on this morning of assessment. She has not reported any symptoms of fever or chills. She denies symptoms of nausea, vomiting, or diarrhea. She is eating her breakfast this morning. She denies symptoms of headache or diplopia. Remaining systems were reviewed cannot be accurately done, but appeared to be negative at this point of time. OBJECTIVE: VITAL SIGNS: The vital signs for the patient, which has been recorded shows a normal temperature, respiratory rate is 16, heart rate is 60, and blood pressure is 130/58. Pulse oxygen saturation on 2 liters nasal cannula is 96% saturation. HEENT: Examination shows head was atraumatic. Eyes nonicterus. NECK: Supple. CARDIOVASCULAR SYSTEM: S1, S2 is audible. LUNGS: The patient was noted with decreased breath sounds and crackles in the lower lungs bilaterally. ABDOMEN: Soft, nontender. Bowel sounds present. EXTREMITIES: The patient was noted without any acute edema. DIAGNOSTIC DATA: CT scan of the chest was completed yesterday that was reviewed independently from the past images. It showed changes of centrilobular emphysema. A small pleural fluid noted on the left side with area of compression atelectasis with acute infiltration cannot be excluded. IMPRESSION: 1. Left pleural fluid associated with pneumonia, compression atelectasis at the present time. Aspiration pneumonia would be considered. 2. History of chronic dementia. 3. Past history of pulmonary embolism as well. 4. History of chronic obstructive pulmonary disease and bronchial asthma without any acute exacerbation. 5. Acute hypoxic respiratory failure. PLAN OF MANAGEMENT: Continuation of the oxygen supplementation, bronchodilators, and the antibiotics. Monitoring of the current pleural fluid with the chest x-ray at this time with fluid ____ certainly considered thoracentesis at the present time. Usual care. Monitor all the culture results to modify the antibiotics. [place], [place] PROGRESS NOTE NAME: ISABELLA BAH UNIT #: [id number] ROOM: [facility] DOCTOR: STACY HARRIS MD BIRTHDATE: [birth year] STACY ALEJANDRO MD CM:PNTRANS [id number] STACY MCCRAY MD 08/13/18 0027 interface
--- NOTE | ~2018-08-11 | WRIGHTHP ---
[place], [place] PATIENT HISTORY AND PHYSICAL EXAM NAME: ISABELLA BAH [facility] #: [id number] UNIT #: [id number] ROOM: 401 DOCTOR: DARLEEN DUNN MD BIRTHDATE: [birth year] DOS: 08/11/2018 HISTORY OF PRESENT ILLNESS: 1. The patient is an 82-year-old female with a past medical history of hypothyroidism, obesity, COPD, Alzheimer's type dementia, adult failure to thrive with recurrent falls and left hip fracture. 2. Chronic atrial fibrillation. 3. Deep vein thrombosis and pulmonary embolism. 4. Severe protein-calorie malnutrition. 5. Benign essential hypertension. 6. Diastolic type CHF, chronic. 7. Mixed hyperlipidemia. The patient presented to [facility] Emergency Department with increasing shortness of breath, wheezing and cough for 2 days and she was found to have pneumonia on the chest x-ray. The patient was admitted to a monitored bed and is starting to improve slightly with treatment. The patient was diagnosed as having healthcare-associated pneumonia because she came from a retirement facility. The patient was started on azithromycin and Zosyn and Dr. Coffman, the trap operator was consulted to follow her. REVIEW OF SYSTEMS: RESPIRATORY: Increasing shortness of breath. GASTROINTESTINAL: No nausea, vomiting, diarrhea, constipation. CARDIOVASCULAR: No chest pains or palpitations. FAMILY HISTORY: Noncontributory. MEDICATIONS: Coreg, mirtazapine, clonidine, apixaban, hydralazine, DuoNebs. ALLERGIES: No known drug allergies. PHYSICAL EXAMINATION: GENERAL: Alert, oriented x 3, very weak, in no visible distress. VITAL SIGNS: Blood pressure 159/58, heart rate of 67 beats per minute, breathing 18 times per minute, afebrile. LABORATORY DATA: CT of the chest showed a small left pleural effusion and compressive atelectasis left lower lobe. BUN and creatinine 26 and 1.2. PT, PTT baseline. Normal serum electrolytes. Albumin of 2.9. IMPRESSION: 1. The patient with acute exacerbation of chronic obstructive pulmonary disease with increased shortness of breath and some left basilar atelectasis. 2. Left basilar atelectasis versus suspicion of pneumonia to be treated with antibiotics, bronchodilators, oxygen and followed closely. Dr. Coffman, the trap operator also followed the patient. The patient is already starting to feel better. 3. Generalized weakness and adult failure to thrive. The patient working on physical therapy. [place], [place] PATIENT HISTORY AND PHYSICAL EXAM NAME: ISABELLA BAH UNIT #: [id number] ROOM: [facility] DOCTOR: DARLEEN DUNN MD BIRTHDATE: [birth year] 4. Benign essential hypertension. Blood pressure to be monitored and treated. 5. Mild protein-calorie malnutrition. The patient to work with dietary. 6. Chronic atrial fibrillation. The patient anticoagulated with apixaban with controlled heart rates. 7. Hypothyroidism, to be replaced with thyroid supplements. DARLEEN DUNN MD CM:HISPHYS:PATIENT HISTORY AND PHYSICAL EXAMINATION 40 52 DARLEEN DNUN MD 08/11/181951 interface
--- NOTE | ~2018-08-11 | PR ---
[place], [place] PROGRESS NOTE NAME: ISABELLA BAH UNIT #: [id number] ROOM: 401 DOCTOR: JAVON MCCRAY MD,STACY BIRTHDATE: [birth year] DOS: 08/14/2018 SUBJECTIVE: The patient has been noted comfortable at this time, resting in the bed, sitting on the chair. Denies any acute complaints. ____. OBJECTIVE: VITAL SIGNS: For the patient which has been recorded shows normal temperature, respiratory rate 20, heart rate of 62, blood pressure 157/55. Pulse ox saturation on 2 liters nasal cannula 98% saturation. HEAD, EYES, EARS, NOSE, AND THROAT: Examination shows head was atraumatic. Eyes nonicterus. NECK: Supple. CARDIOVASCULAR SYSTEM: S1, S2 audible. LUNGS: Basilar crackles in the left lower lobe. ABDOMEN: Soft, flat, nontender. EXTREMITIES: Without any acute edema. LABORATORY AND DIAGNOSTIC DATA: CBC this morning, normal WBC count and platelet count, hemoglobin 9.1. BMP, BUN 19, creatinine ____. Chest x-ray that was completed yesterday was noted with resolving infiltration in the left lower lobe. IMPRESSION: 1. Resolving acute pneumonia, which has been improving. 2. History of dementia. PLAN OF MANAGEMENT: Oral antibiotic consideration on home discharge and as the family would like the patient to be discharged home setting, would not be going back to alf facility. STACY ALEJANDRO MD CM:PNTRANS [phone] STACY MCCRAY MD 08/14/18 1308 interface
[2018-08-11 03:29] LABS: BASO % 0.3 % (0.0-1.0); EOS # 0.3 10*3/uL (0.0-0.4); EOS % 3.5 % (1.0-4.0); HEMATOCRIT 28.9 % (37.0-47.0); LYMPH # 1.6 10*3/uL (1.3-4.4); LYMPH % 19.9 % (27.0-41.0); MEAN CELL VOLUME 98.3 fl (81.0-99.0); MEAN CORPUSCULAR HGB 30.6 pg (27.0-31.0); MEAN CORPUSCULAR HGB CONC 31.1 g/dl (33.0-37.0); MEAN PLATELET VOLUME 9.5 fl (9.6-12.3); MONO # 0.6 10*3/uL (0.1-1.0); MONO % 7.5 % (3.0-9.0); NEUT # 5.5 10*3/uL (2.3-7.9); NEUT % 68.4 % (47.0-73.0); PLATELET COUNT AUTOMATED 287 10*3/uL (130-400); RED BLOOD COUNT 2.94 10*6/uL (4.10-5.10); RED CELL DISTRI WIDTH 14.6 % (0-14.5)
[2018-08-11 03:41] LABS: INTERNATIONAL NORM RATIO 1.1 (2.0-3.5)
[2018-08-11 03:52] LABS: ALBUMIN 2.8 gm/dl (3.1-4.5); ALKALINE PHOSPHATASE 64 U/L (45-117); BUN 26 mg/dl (7-24); CHLORIDE 110 mmol/L (98-107); CREATININE 1.19 mg/dL (0.55-1.02); POTASSIUM 3.7 mmol/L (3.5-5.1); SGOT/AST 13 IU/L (3-35); SGPT/ALT 14 U/L (12-78); SODIUM 140 mmol/L (136-145); TOTAL PROTEIN 6.5 gm/dL (6.4-8.2)
[2018-08-11 03:54] LABS: TROPONIN I < 0.015 ng/ml (<0.045)
[2018-08-11] MEDS ORDERED: PROTONIX40 MG PO (04:47)
[2018-08-12] VITALS: BP 135/58
[2018-08-12 08:00] VITALS: BP 130/58
[2018-08-12 12:00] VITALS: BP 121/49
[2018-08-12 16:00] VITALS: BP 148/54
[2018-08-12 20:00] VITALS: BP 177/58
[2018-08-13] VITALS: BP 107/44
[2018-08-13 08:00] VITALS: BP 136/52
[2018-08-13 12:00] VITALS: BP 116/41
[2018-08-13 16:00] VITALS: BP 154/50
[2018-08-13 21:15] VITALS: BP 160/70
[2018-08-14] VITALS: BP 169/51
[2018-08-14 06:15] VITALS: BP 157/55
[2018-08-14 06:44] LABS: BASO % 0.4 % (0.0-1.0); EOS # 0.3 10*3/uL (0.0-0.4); EOS % 3.8 % (1.0-4.0); HEMATOCRIT 29.5 % (37.0-47.0); LYMPH # 2.5 10*3/uL (1.3-4.4); LYMPH % 30.5 % (27.0-41.0); MEAN CELL VOLUME 99.3 fl (81.0-99.0); MEAN CORPUSCULAR HGB 30.3 pg (27.0-31.0); MEAN CORPUSCULAR HGB CONC 30.5 g/dl (33.0-37.0); MEAN PLATELET VOLUME 9.7 fl (9.6-12.3); MONO # 0.7 10*3/uL (0.1-1.0); MONO % 9.2 % (3.0-9.0); NEUT # 4.5 10*3/uL (2.3-7.9); NEUT % 55.7 % (47.0-73.0); PLATELET COUNT AUTOMATED 309 10*3/uL (130-400); RED BLOOD COUNT 2.97 10*6/uL (4.10-5.10); RED CELL DISTRI WIDTH 14.4 % (0-14.5); WHITE BLOOD COUNT 8.1 10*3/uL (4.8-10.8)
[2018-08-14 07:11] LABS: CREATININE 1.1 mg/dL (0.55-1.02); POTASSIUM 3.6 mmol/L (3.5-5.1)
[2018-08-14] MEDS ORDERED: CEFUROXIME AXE250 MG PO (08:21)
[2018-08-14 12:00] VITALS: BP 188/70
== END 2018-08-14 12:58 | disposition home or self-care (01) | DRG 193 ==
LOC: ED 03:00 → EDHOLD 03:52 → 4E 03:52
PROVIDERS: Internal Medicine; Student in an Organized Health Care Education/Training Program
DX: J18.1 Lobar pneumonia, unspecified organism (principal); E43 Unspecified severe protein-calorie malnutrition; J96.01 Acute respiratory failure with hypoxia; J98.11 Atelectasis; J44.1 Chronic obstructive pulmonary disease with (acute) exacerbation; J44.0 Chronic obstructive pulmonary disease with (acute) lower respiratory infection; I13.0 Hypertensive heart and chronic kidney disease with heart failure and stage 1 through stage 4 chronic kidney disease, or unspecified chronic kidney disease; I50.32 Chronic diastolic (congestive) heart failure; F41.9 Anxiety disorder, unspecified; N18.3 Chronic kidney disease, stage 3 (moderate); I48.0 Paroxysmal atrial fibrillation; E66.9 Obesity, unspecified; R29.6 Repeated falls; E03.9 Hypothyroidism, unspecified; I48.2 Chronic atrial fibrillation; Z96.1 Presence of intraocular lens; E78.2 Mixed hyperlipidemia; R62.7 Adult failure to thrive; G30.1 Alzheimer's disease with late onset; Z86.718 Personal history of other venous thrombosis and embolism; F02.80 Dementia in other diseases classified elsewhere, unspecified severity, without behavioral disturbance, psychotic disturbance, mood disturbance, and anxiety; Z86.711 Personal history of pulmonary embolism; Z79.01 Long term (current) use of anticoagulants; Z87.440 Personal history of urinary (tract) infections; Z87.01 Personal history of pneumonia (recurrent); Z90.49 Acquired absence of other specified parts of digestive tract; Z90.710 Acquired absence of both cervix and uterus; Z98.49 Cataract extraction status, unspecified eye; Z87.442 Personal history of urinary calculi; Z87.891 Personal history of nicotine dependence; Z81.1 Family history of alcohol abuse and dependence; Z83.3 Family history of diabetes mellitus; Z68.27 Body mass index [BMI] 27.0-27.9, adult

== ENCOUNTER 2018-09-22 09:41 | Inpatient (IN) | payer MEDICARE, OTHER ==
[~2018-09-22] VITALS: Ht 157.5 cm; Wt 68.2 kg
--- NOTE | ~2018-09-22 | EKG ---
[place], [place] ELECTROCARDIOGRAM REPORT NAME: ISABELLA BAH UNIT #: [id number] ROOM: 529 DOCTOR: DEACON DRAFT REPORT BIRTHDATE: [address] [facility] Test Date: 2018-09-22 Test Time: 10:13:13 Pat Name: ISABELLA BAH Department: Room: 529 Gender: F Spanish Linguist: Jenn Valdes : 1935 Requested By: SHAHBAZ BUENO DNP Order Number: [id number] Reading MD: Chapito Lundy MD Measurements Intervals [place] Rate: 68 P: 86 HI: 207 QRS: 91 QRSD: 106 T: -32 QT: 413 QTc: 440 Interpretive Statements Sinus rhythm with occasional atrial pacing Ventricular premature complexes Nonspecific T abnormalities, inferior leads Compared to ECG 08/11/2018 03:15:42 Ventricular premature complex(es) now present T-wave abnormality now present Electronically Signed On 09-22-2018 17:57:07 PST by Chapito Lundy MD CM:EKGRPT:ELECTROCARDIOGRAM REPORT [id number] 1757 SHAHBAZ BUENO DNP EPIPHANY DRAFT REPORT SHAHBAZ BUENO DNP
[~2018-09-22 09:41] MED LIST changes: +CEFUROXIME AXE250 MG PO; +PROTONIX40 MG PO
[2018-09-22 09:42] VITALS: BP 200/77
[2018-09-22 10:24] LABS: BASO # 0.1 10*3/uL (0.0-0.1); BASO % 0.7 % (0.0-1.0); EOS # 0.2 10*3/uL (0.0-0.4); EOS % 1.9 % (1.0-4.0); HEMATOCRIT 40.5 % (37.0-47.0); HEMOGLOBIN 12.2 g/dl (12.0-16.0); LYMPH # 1.7 10*3/uL (1.3-4.4); LYMPH % 18.4 % (27.0-41.0); MEAN CELL VOLUME 97.1 fl (81.0-99.0); MEAN CORPUSCULAR HGB 29.3 pg (27.0-31.0); MEAN CORPUSCULAR HGB CONC 30.1 g/dl (33.0-37.0); MEAN PLATELET VOLUME 9.7 fl (9.6-12.3); MONO # 0.6 10*3/uL (0.1-1.0); MONO % 6.1 % (3.0-9.0); NEUT # 6.9 10*3/uL (2.3-7.9); NEUT % 72.7 % (47.0-73.0); PLATELET COUNT AUTOMATED 343 10*3/uL (130-400); RED BLOOD COUNT 4.17 10*6/uL (4.10-5.10); RED CELL DISTRI WIDTH 14.2 % (0-14.5); WHITE BLOOD COUNT 9.5 10*3/uL (4.8-10.8)
[2018-09-22 10:32] LABS: ACT PARTIAL THROMBO TIME 24.4 SECONDS (20.8-31.5)
--- NOTE | 2018-09-22 10:37 | NUR ---
PATIENT TO CT SCAN AT THIS TIME.
[2018-09-22 10:38] LABS: ALBUMIN 3.7 gm/dl (3.1-4.5); CREATININE 1.45 mg/dL (0.55-1.02); POTASSIUM 4.3 mmol/L (3.5-5.1); TOTAL PROTEIN 8.5 gm/dL (6.4-8.2); TROPONIN I 0.03 ng/ml (<0.045)
--- NOTE | 2018-09-22 11:08 | NUR ---
PATIENT PLACED ONTO BED WATTERS AT THIS TIME. URINE SPECIMEN COLLECTED.
[2018-09-22 11:19] LABS: BILIRUBIN NEGATIVE (NEGATIVE); BLOOD NEGATIVE (NEGATIVE); CLARITY SL CLOUDY (CLEAR); COLOR YELLOW (YELLOW); GLUCOSE NEGATIVE (NEGATIVE); KETONE NEGATIVE (NEGATIVE); LEUKO ESTERASE NEGATIVE (NEGATIVE); NITRITE NEGATIVE (NEGATIVE); UROBILINOGEN 0.2 E.U./dl (0.2-1.0)
[2018-09-22 11:33] LABS: BACTERIA 3+; MUCOUS 1+
[2018-09-22 11:59] VITALS: BP 165/30
--- NOTE | 2018-09-22 12:26 | NUR ---
PHOTO TAKEN OF PATIENTS FOREHEAD.
--- NOTE | 2018-09-22 12:28 | NUR ---
NOTIFIED NURSE OF PATIENT COMING TO 5TH FLOOR. PATIENT TAKEN TO 5TH FLOOR BY THIS NURSE AT THIS TIME.
[2018-09-22 12:40] VITALS: BP 140/82
--- NOTE | 2018-09-22 12:40 | NUR ---
A 83, admitted to 5E, under the services of Dr. SHAUN HERNANDEZ,DARLEEN with a diagnosis of CLOSED HEAD INJURY, SYNCOPE, GENERALIZED WEAKNESS. Chief complaint is FALL. Patient arrived via ambulance from ER. Monitor applied. Initial assessment completed. Vital signs taken and recorded. DR. EULALIA BOYD notified of admission to the unit. Orders received. See assessment for past medical history, medications and allergies. Patient and/or family oriented to unit. [address] visitation policy reviewed. Clothing/patient valuable form completed. VACCINATIONS CURRENT. SKIN INTACT WITH NO WOUNDS EDOUARD SANDOVAL
[2018-09-22 16:00] VITALS: BP 150/75
[2018-09-22] MEDS ORDERED: HYDROCODONE-AC1 EAC1 PO (17:16)
[2018-09-22] MEDS ORDERED: Hydralazine Hyd25 MG PO (17:23)
[2018-09-22] MEDS ORDERED: ELIQUIS2.5 M1 PO (17:26)
--- NOTE | 2018-09-22 17:41 | NUR ---
PTS HOME MEDICATIONS VERIFIED VIA FAX FROM [facility]. DR PIERCE NOTIFIED
[2018-09-22 20:00] VITALS: BP 150/50
--- NOTE | 2018-09-22 22:30 | NUR ---
PATIENT REQUESTED AND RECIEVED PRN NORCO FOR A HEADACHE. PATIENT RATES PAIN AT 8. WILL MONITOR FOR EFFECTIVENESS.
[2018-09-23] VITALS: BP 154/80
--- NOTE | 2018-09-23 | NUR ---
PATIENT IS SLEEPING. PRN NORCO CONSIDERED EFFECTIVE.
[2018-09-23 06:37] LABS: CREATININE 1.18 mg/dL (0.55-1.02); FREE T4 0.83 ng/dl (0.76-1.46); PHOSPHOROUS 3.1 mg/dL (2.5-4.9); POTASSIUM 4.1 mmol/L (3.5-5.1)
[2018-09-23 06:55] LABS: THYROID STIM HORMONE (HS) 9.47 uIU/ml (0.358-4.75)
[2018-09-23 07:18] LABS: VITAMIN D, 25-HYDROXY 38.8 ng/mL (30-100)
[2018-09-23 08:00] VITALS: BP 166/76
[2018-09-23 08:05] LABS: BASO # 0.1 10*3/uL (0.0-0.1); BASO % 0.7 % (0.0-1.0); EOS # 0.3 10*3/uL (0.0-0.4); EOS % 3.2 % (1.0-4.0); HEMOGLOBIN 10.3 g/dl (12.0-16.0); LYMPH # 2.9 10*3/uL (1.3-4.4); LYMPH % 36.4 % (27.0-41.0); MEAN CELL VOLUME 98.6 fl (81.0-99.0); MEAN CORPUSCULAR HGB 29.7 pg (27.0-31.0); MEAN CORPUSCULAR HGB CONC 30.1 g/dl (33.0-37.0); MEAN PLATELET VOLUME 10.3 fl (9.6-12.3); MONO # 0.7 10*3/uL (0.1-1.0); MONO % 9.1 % (3.0-9.0); NEUT # 4.1 10*3/uL (2.3-7.9); NEUT % 50.5 % (47.0-73.0); PLATELET COUNT AUTOMATED 297 10*3/uL (130-400); RED BLOOD COUNT 3.47 10*6/uL (4.10-5.10); RED CELL DISTRI WIDTH 14.4 % (0-14.5)
--- NOTE | 2018-09-23 08:15 | NUR ---
PHYSICAL THERAPY PAtient evalauted on 5, full evaluation to follow. Continue with PT as per plan of care with fall, alarm and recent fall at home with closed head injury precautions. May require SNF. If refuses- home with 15/03 (A) and home health RN, PT and aides prn. PAtient is moderate complexity via chart review, tests and evaluation: 90240. Thank you for this referral. Renetta Thomas,PT
[2018-09-23 08:17] LABS: HEMATOCRIT 34.2 % (37.0-47.0)
--- NOTE | 2018-09-23 08:22 | NUR ---
Occupational Therapy evaluation completed on 5 with full eval to follow. Precautions include fall risk; bed alarm, imparied cognition, generalized weakness, eye/head contusions from recent falls. Patient is moderate complexity level 59864 via chart review, testing and evaluation. Recommend OT per POC and SNF to enable return home. Thank you for this referral. Linda Hernandez OTR/l
--- NOTE | 2018-09-23 10:44 | NUR ---
Dowel Inspector in to talk to patient. Patient states lives at HOME with DAUGHTER. There are NO steps in the home. Physician: HOMERO Pharmacy: [facility] health services: NONE Patient's level of ADLs: MODERATE ASSIST Patient has working utilities: YES DME: WALKER Follow-up physician's appointment after d/c: WILL BE MADE BY HOSPITALIST NURSE DIRECTOR ON DISCHARGE. Does patient want to access PORTAL?: NO Discharge plan PT STATES SHE WAS RECENTLY DISCHARGED FROM [facility] WHERE SHE WAS FOR SKILLED STAY AND NOW LIVES AT HOME WITH HER DAUGHTER. PT STATES SHE WANTS TO RETURN HOME WITH DAUGHTER AFTER DISCHARGE. WILL CONTINUE TO FOLLOW.PT STATES HER DAUGHTER WILL TRANSPORT HER HOME ON DISCHARGE.. CELINE SALAMANCA
[2018-09-23 12:00] VITALS: BP 160/54
--- NOTE | 2018-09-23 15:36 | NUR ---
ISABELLA BAH [id number] Please refer to the physician's history and physical for past medical history, comorbid conditions, and allergies. Diagnosis: CLOSED HEAD INJURY,SYNCOPE,GENERALIZED WEAKNESS, Beto Score: 16,AT RISK WOUND DESCRIPTIONS: Location of the wound: RIGHT FOREHEAD Type of wound: ABRASION Thickness: Partial Size: 1.1cm X 1.4cm X <0.1cm Tunneling: NONE Undermining: NONE Sinus Tract: NONE Presence of Exudate: NONE Amount: None Color: Red Odor: None Periwound Skin Appearance: Normal Wound edges: CLOSED Pain (associated with wound): DENIED AT TIME OF ASSESSMENT How does patient state this happened? PATIENT STATES SHE FELL AT HOME. PATIENT STATES SHE DOES NOT WANT ANY TREATMENT TO THIS AREA. Surface the patient is resting on: Isoflex SKIN PREVENTION RECOMMENDATION: 1. Pressure redistribution support surface as appropriate 2. Elevate heels 3. Remove boots/TEDS every shift and reapply 4. Head of bed 30 degrees as tolerated 5. Assess nutrition and hydration 6. Manage moisture 7. Avoid the use of containment devices while in bed 8. Use absorptive products on surfaces limit layers of linens on bed 9. Turn and reposition every 1-2 hours in bed and every 1 hour in chair as tolerated 10. Weight shifts every 15 minutes while up in chair 11. Offloading with pillows or device to keep heels elevated off bed 12. Monitor skin at least every shift 13. Inspect under medical devices twice a day
[2018-09-23 16:00] VITALS: BP 157/65
[2018-09-23 20:00] VITALS: BP 158/54
[2018-09-24] VITALS: BP 164/55
[2018-09-24 01:21] VITALS: BP 156/64; BP 156/74
[2018-09-24 06:52] LABS: BASO # 0.1 10*3/uL (0.0-0.1); BASO % 0.8 % (0.0-1.0); EOS # 0.3 10*3/uL (0.0-0.4); HEMATOCRIT 35.6 % (37.0-47.0); HEMOGLOBIN 10.5 g/dl (12.0-16.0); LYMPH # 2.5 10*3/uL (1.3-4.4); LYMPH % 31.4 % (27.0-41.0); MEAN CELL VOLUME 98.3 fl (81.0-99.0); MEAN CORPUSCULAR HGB CONC 29.5 g/dl (33.0-37.0); MEAN PLATELET VOLUME 10.1 fl (9.6-12.3); MONO # 0.8 10*3/uL (0.1-1.0); MONO % 10.3 % (3.0-9.0); NEUT # 4.3 10*3/uL (2.3-7.9); NEUT % 53.2 % (47.0-73.0); PLATELET COUNT AUTOMATED 283 10*3/uL (130-400); RED BLOOD COUNT 3.62 10*6/uL (4.10-5.10); RED CELL DISTRI WIDTH 14.1 % (0-14.5)
[2018-09-24 07:14] LABS: CREATININE 1.09 mg/dL (0.55-1.02); POTASSIUM 4.3 mmol/L (3.5-5.1)
[2018-09-24 08:00] VITALS: BP 148/52; BP 180/76
--- NOTE | 2018-09-24 09:47 | NUR ---
I rechecked MBP at this time with result of 148/52 noted.
[2018-09-24 12:00] VITALS: BP 174/57
--- NOTE | 2018-09-24 12:11 | NUR ---
PHYSICAL THERAPY Patient seen this AM for her therapy session, sitting on toilet at time of arrival; transfer from toilet with use of grab bar and Miguel- followed by gait with FWW and CGA to sink, then to shower. Pt performed transfer <> shower with use of grab bar and CGA-- min cues for safety with stepping and using grab bar. Standing balance at FWW for clothing/hygiene task with CGA-- no LOB observed this date. Gait with FWW and CGA-Miguel(Miguel for directional assist and spatial/obstacle negotiation) for ~20'x1- pt demo decreased ronnie and required cues for keeping AURY within walker for safey and with directional changes. Pt sat in bedside chair at session end with nursing staff present. Juany Jackson, CAPTAIN OF GUARDS
--- NOTE | 2018-09-24 14:05 | NUR ---
Spoke with pt regarding order for dc to home. Pt states she already called her daughter. Awaiting daughter to come warp picker pt and review dc instructions.
--- NOTE | 2018-09-24 14:24 | NUR ---
Discharge instructions reviewed with patient/family. Patient receptive and verbalizes understanding. Follow-up care arranged. Written instructions given to patient/daughter. I reveiwed dc instructions and medications needed tonight. Pt daughter states she doesn't know what any of pt meds are that her pharmacy puts them in a morning, evening and night pack without any label, states there is no reason to review meds as she will just give her night meds. Reviewed activity and encouraged pt to only get up with assist. Daughter states pt doesn't listen and then she falls. I asked daughter if she needed some assistance at home and daughter states she is there all the time but she cant prevent pt from falling. Daughter states she is tired. I asked daugther if she was able to speak with someone from case management and she states no. I asked daughter if she wanted to speak with them prior to dc or physicans regarding concerns and daughter states that they can call her on wednesday. MONIK CAMPO
--- NOTE | 2018-09-24 14:30 | NUR ---
Dc to home via wheelchair in care of daughter whom she lives with.
--- NOTE | 2018-09-26 07:52 | NUR ---
PHYSICAL THERAPY CO-SIGN I approve of the Phyical Therapy notes written above. VINCE MAS PT
== END 2018-09-24 14:30 | disposition home or self-care (01) | DRG 683 ==
LOC: ED 09:41 → 5E 11:45 → EDHOLD 11:45 → 5E 12:19
PROVIDERS: Internal Medicine; Nurse Practitioner Family; ADMIT Internal Medicine
DX: N17.0 Acute kidney failure with tubular necrosis (principal); I50.32 Chronic diastolic (congestive) heart failure; I13.0 Hypertensive heart and chronic kidney disease with heart failure and stage 1 through stage 4 chronic kidney disease, or unspecified chronic kidney disease; I27.82 Chronic pulmonary embolism; Z68.27 Body mass index [BMI] 27.0-27.9, adult; N18.4 Chronic kidney disease, stage 4 (severe); S09.90XA Unspecified injury of head, initial encounter; S00.83XA Contusion of other part of head, initial encounter; J44.9 Chronic obstructive pulmonary disease, unspecified; F41.9 Anxiety disorder, unspecified; E78.5 Hyperlipidemia, unspecified; F03.90 Unspecified dementia, unspecified severity, without behavioral disturbance, psychotic disturbance, mood disturbance, and anxiety; E03.9 Hypothyroidism, unspecified; E55.9 Vitamin D deficiency, unspecified; E66.3 Overweight; G89.29 Other chronic pain; K59.00 Constipation, unspecified; I48.0 Paroxysmal atrial fibrillation; W18.30XA Fall on same level, unspecified, initial encounter; Y93.89 Activity, other specified; Y92.091 Bathroom in other non-institutional residence as the place of occurrence of the external cause; Y99.8 Other external cause status; Z90.49 Acquired absence of other specified parts of digestive tract; Z90.710 Acquired absence of both cervix and uterus; Z83.3 Family history of diabetes mellitus; Z87.891 Personal history of nicotine dependence; Z79.1 Long term (current) use of non-steroidal anti-inflammatories (NSAID); Z79.82 Long term (current) use of aspirin; Z79.899 Other long term (current) drug therapy; R73.9 Hyperglycemia, unspecified; Z99.81 Dependence on supplemental oxygen

== ENCOUNTER → 2019-05-08 | Outpatient (CLI) | payer MEDICARE, OTHER ==
[~2019-05-08] MED LIST changes: +ELIQUIS2.5 M1 PO
[2019-05-08 12:49] LABS: BASO # 0.1 10*3/uL (0.0-0.1); BASO % 0.6 % (0.0-1.0); EOS # 0.2 10*3/uL (0.0-0.4); EOS % 2.3 % (1.0-4.0); HEMATOCRIT 39.5 % (37.0-47.0); HEMOGLOBIN 12.5 g/dl (12.0-16.0); LYMPH # 1.9 10*3/uL (1.3-4.4); LYMPH % 24.3 % (27.0-41.0); MEAN CELL VOLUME 98.5 fl (81.0-99.0); MEAN CORPUSCULAR HGB 31.2 pg (27.0-31.0); MEAN CORPUSCULAR HGB CONC 31.6 g/dl (33.0-37.0); MEAN PLATELET VOLUME 9.6 fl (9.6-12.3); MONO # 0.6 10*3/uL (0.1-1.0); MONO % 7.6 % (3.0-9.0); NEUT # 5.2 10*3/uL (2.3-7.9); NEUT % 64.9 % (47.0-73.0); PLATELET COUNT AUTOMATED 286 10*3/uL (130-400); RED BLOOD COUNT 4.01 10*6/uL (4.10-5.10); RED CELL DISTRI WIDTH 13.6 % (0-14.5); WHITE BLOOD COUNT 7.9 10*3/uL (4.8-10.8)
[2019-05-08 13:18] LABS: ALBUMIN 3.6 gm/dl (3.1-4.5); CREATININE 1.21 mg/dL (0.55-1.02); POTASSIUM 3.9 mmol/L (3.5-5.1); TOTAL PROTEIN 7.4 gm/dL (6.4-8.2)
[2019-05-08 13:24] LABS: THYROID STIM HORMONE (HS) 1.87 uIU/ml (0.358-4.75)
== END | disposition home or self-care (01) ==
LOC: LAB 12:30
PROVIDERS: Family Medicine
DX: R53.81 Other malaise (principal)

== ENCOUNTER 2020-03-02 12:26 | Inpatient (IN) | payer MEDICARE, OTHER ==
[~2020-03-02] VITALS: Ht 157.4 cm; Wt 65.3 kg
[2020-03-02 12:33] VITALS: BP 137/75
[2020-03-02 13:24] LABS: BASO # 0.1 10*3/uL (0.0-0.1); BASO % 0.5 % (0.0-1.0); EOS # 0.2 10*3/uL (0.0-0.4); HEMATOCRIT 38.5 % (37.0-47.0); LYMPH # 3.1 10*3/uL (1.3-4.4); LYMPH % 27.9 % (27.0-41.0); MEAN CELL VOLUME 96.3 fl (81.0-99.0); MEAN CORPUSCULAR HGB 30.8 pg (27.0-31.0); MEAN CORPUSCULAR HGB CONC 31.9 g/dl (33.0-37.0); MEAN PLATELET VOLUME 10.3 fl (9.6-12.3); MONO # 0.9 10*3/uL (0.1-1.0); MONO % 8.1 % (3.0-9.0); NEUT # 6.8 10*3/uL (2.3-7.9); NEUT % 61.2 % (47.0-73.0); PLATELET COUNT AUTOMATED 295 10*3/uL (130-400); RED CELL DISTRI WIDTH 13.6 % (0-14.5); WHITE BLOOD COUNT 11.1 10*3/uL (4.8-10.8)
[2020-03-02 13:48] LABS: ALBUMIN 3.6 gm/dl (3.1-4.5); CREATININE 1.96 mg/dL (0.55-1.02); POTASSIUM 3.5 mmol/L (3.5-5.1); TOTAL PROTEIN 7.5 gm/dL (6.4-8.2)
[2020-03-02 14:01] LABS: BILIRUBIN 1+ (NEGATIVE); BLOOD NEGATIVE (NEGATIVE); CLARITY SL CLOUDY (CLEAR); COLOR YELLOW (YELLOW); GLUCOSE NEGATIVE (NEGATIVE); KETONE NEGATIVE (NEGATIVE); LEUKO ESTERASE 1+ (NEGATIVE); NITRITE POSITIVE (NEGATIVE); SPECIFIC GRAVITY 1.015 (1.005-1.030); UROBILINOGEN 0.2 E.U./dl (0.2-1.0)
[2020-03-02 14:05] LABS: WBC 16-20 wbc/hpf (0-5)
[2020-03-02 14:06] LABS: BACTERIA 4+; EPITHELIAL CELLS 21-30; MUCOUS 1+
[2020-03-02 14:30] VITALS: BP 154/64
--- NOTE | 2020-03-02 14:31 | NUR ---
PATIENT PLACED ONTO NASAL CANNULA 2L FOR COMFORT. PATIENT STATES THAT SHE DOES USE O2 AT HOME PRN.
--- NOTE | 2020-03-02 14:37 | NUR ---
PATIENT ANTIBIOTIC STARTED AFTER BLOOD CULTURES WERE OBTAINED.
[2020-03-02 16:00] VITALS: BP 149/81
--- NOTE | 2020-03-02 16:24 | NUR ---
PATIENT UP TO BEDSIDE AT THIS TIME. PATIENT DEPENDS HAS BEEN CHANGED.
[2020-03-02 16:40] VITALS: BP 153/84
--- NOTE | 2020-03-02 16:40 | NUR ---
PATIENT TAKEN TO 5TH FLOOR AT THIS TIME. BESIDE REPORT GIVEN TO CAL PRAKASH. PATIENT A&OX3. NO CHANGE IN STATUS.
--- NOTE | 2020-03-02 17:00 | NUR ---
Time: 1699 A 84 year old FEMALE admitted to 5E under services of MARIANA WESTBROOK DO. Pt. arrived via stretcher from ER. Chief complaint: YAMINI, UTI. MEGAN FLANNERY
[2020-03-02] MEDS ORDERED: LEVOTHYROXINE100 MC1 PO (17:10)
[2020-03-02 20:00] VITALS: BP 138/57
--- NOTE | 2020-03-02 22:45 | NUR ---
SPOKE WITH REYNOLD, RENETTA AND ISABELLA AND PASSWORD HAS BEEN CHANGED TO OMER.
--- NOTE | 2020-03-02 22:57 | NUR ---
UP TO BATHROOM WITH ASSISTANCE AND BACK TO BED. EXP. WHEEZING NOTED. 02 2L NC IN USE. CALLED RESPIRATORY FOR PRN ATX.
[2020-03-03] VITALS: BP 120/52
--- NOTE | 2020-03-03 02:00 | NUR ---
SLEEPING NO DISTRESS NOTED.
--- NOTE | 2020-03-03 03:03 | NUR ---
SLEEPING NO ACUTE DISTRESS NOTED.
--- NOTE | 2020-03-03 03:17 | NUR ---
24 HR chart check completed.
--- NOTE | 2020-03-03 04:00 | NUR ---
SLEEPING NO ACUTE DISTRESS NOTED
[2020-03-03 06:04] LABS: BASO # 0.1 10*3/uL (0.0-0.1); BASO % 0.6 % (0.0-1.0); EOS # 0.3 10*3/uL (0.0-0.4); EOS % 4.1 % (1.0-4.0); HEMATOCRIT 36.3 % (37.0-47.0); LYMPH # 2.7 10*3/uL (1.3-4.4); LYMPH % 32.4 % (27.0-41.0); MEAN CELL VOLUME 98.1 fl (81.0-99.0); MEAN CORPUSCULAR HGB 30.5 pg (27.0-31.0); MEAN CORPUSCULAR HGB CONC 31.1 g/dl (33.0-37.0); MEAN PLATELET VOLUME 10.4 fl (9.6-12.3); MONO # 0.8 10*3/uL (0.1-1.0); MONO % 9.7 % (3.0-9.0); NEUT # 4.4 10*3/uL (2.3-7.9); PLATELET COUNT AUTOMATED 241 10*3/uL (130-400); RED CELL DISTRI WIDTH 13.8 % (0-14.5); WHITE BLOOD COUNT 8.3 10*3/uL (4.8-10.8)
[2020-03-03 06:09] LABS: CREATININE 1.5 mg/dL (0.55-1.02); POTASSIUM 3.3 mmol/L (3.5-5.1)
[2020-03-03 06:20] LABS: THYROID STIM HORMONE (HS) 0.278 uIU/ml (0.358-4.75)
--- NOTE | 2020-03-03 07:42 | NUR ---
PT IS RESTING QUIETLY, NO TX AT THIS TIME.
[2020-03-03 08:00] VITALS: BP 159/48
--- NOTE | 2020-03-03 08:30 | NUR ---
Patient resting quietly with no c/o discomfort. Respirations easy and regular, expiratory wheezing noted. ROMANO also noted. IVF infusing per orders. Call light in reach. Vital signs stable. No overt distress. Will monitor MEGAN FLANNERY R
[2020-03-03 12:00] VITALS: BP 152/58
[2020-03-03 16:00] VITALS: BP 152/55
[2020-03-03 20:00] VITALS: BP 134/58
[2020-03-04] VITALS: BP 159/56
[2020-03-04 06:08] LABS: CREATININE 1.24 mg/dL (0.55-1.02); POTASSIUM 3.9 mmol/L (3.5-5.1)
[2020-03-04 06:24] LABS: BASO # 0.1 10*3/uL (0.0-0.1); BASO % 0.6 % (0.0-1.0); EOS # 0.3 10*3/uL (0.0-0.4); EOS % 3.7 % (1.0-4.0); HEMATOCRIT 35.3 % (37.0-47.0); LYMPH # 2.4 10*3/uL (1.3-4.4); LYMPH % 26.6 % (27.0-41.0); MEAN CELL VOLUME 98.6 fl (81.0-99.0); MEAN CORPUSCULAR HGB 30.4 pg (27.0-31.0); MEAN CORPUSCULAR HGB CONC 30.9 g/dl (33.0-37.0); MEAN PLATELET VOLUME 10.7 fl (9.6-12.3); MONO # 0.9 10*3/uL (0.1-1.0); MONO % 9.7 % (3.0-9.0); NEUT # 5.3 10*3/uL (2.3-7.9); NEUT % 59.1 % (47.0-73.0); PLATELET COUNT AUTOMATED 233 10*3/uL (130-400); RED BLOOD COUNT 3.58 10*6/uL (4.10-5.10); RED CELL DISTRI WIDTH 13.8 % (0-14.5); WHITE BLOOD COUNT 8.9 10*3/uL (4.8-10.8)
[2020-03-04 08:00] VITALS: BP 171/54
--- NOTE | 2020-03-04 08:30 | NUR ---
Patient resting quietly with no c/o discomfort. Respirations easy and regular. Vital signs stable. No overt distress. MEGAN FLANNERY R
[2020-03-04 12:00] VITALS: BP 173/56
--- NOTE | 2020-03-04 13:35 | NUR ---
Liquor Runner in to talk to patient. Patient states lives at HOME with DAUGHTER. There are NO steps in the home. Physician: HOMERO Pharmacy: [facility] Home health services: NONE Patient's level of ADLs: INDEPENDENT Patient has working utilities: YES DME: HOME O2 AND WALKER Follow-up physician's appointment after d/c: WILL BE MADE BY HOSPITALIST NURSE DIRECTOR ON DISCHARGE Does patient want to access PORTAL?: NO Discharge plan PT LIVES AT HOME WITH HIS DAUGHTER AND IS INDEPENDENT IN HER CARE. DENIES SHE WILL HAVE ANY NEEDS ON DISCHARGE. PT STATES SHE WILL RETURN HOME WITH DAUGHTER WHEN MEDICALLY STABLE. WILL CONTINUE TO FOLLOW. WILL HAVE A RIDE HOME PER PT. CELINE SALAMANCA
[2020-03-04] MEDS ORDERED: CIPRO500 MG PO (16:01)
--- NOTE | 2020-03-04 17:15 | NUR ---
Discharge instructions reviewed with patient/family. Patient receptive and verbalizes understanding. Follow-up care arranged. Written instructions given to patient/family. MEGAN FLANNERY
== END 2020-03-04 17:15 | disposition home or self-care (01) | DRG 689 ==
LOC: ED 12:26 → 5E 16:07 → EDHOLD 16:07 → 5E 16:24
PROVIDERS: Family Medicine; Nurse Practitioner Family; Student in an Organized Health Care Education/Training Program; ADMIT Student in an Organized Health Care Education/Training Program
DX: N30.00 Acute cystitis without hematuria (principal); N17.0 Acute kidney failure with tubular necrosis; E87.0 Hyperosmolality and hypernatremia; I13.0 Hypertensive heart and chronic kidney disease with heart failure and stage 1 through stage 4 chronic kidney disease, or unspecified chronic kidney disease; B96.20 Unspecified Escherichia coli [E. coli] as the cause of diseases classified elsewhere; N28.1 Cyst of kidney, acquired; I50.9 Heart failure, unspecified; J44.9 Chronic obstructive pulmonary disease, unspecified; F03.90 Unspecified dementia, unspecified severity, without behavioral disturbance, psychotic disturbance, mood disturbance, and anxiety; D72.829 Elevated white blood cell count, unspecified; I48.0 Paroxysmal atrial fibrillation; E87.6 Hypokalemia; E83.41 Hypermagnesemia; E78.5 Hyperlipidemia, unspecified; N18.3 Chronic kidney disease, stage 3 (moderate); R73.9 Hyperglycemia, unspecified; E87.8 Other disorders of electrolyte and fluid balance, not elsewhere classified; E66.3 Overweight; D64.9 Anemia, unspecified; F41.9 Anxiety disorder, unspecified; K40.90 Unilateral inguinal hernia, without obstruction or gangrene, not specified as recurrent; Z90.710 Acquired absence of both cervix and uterus; Z81.1 Family history of alcohol abuse and dependence; Z79.82 Long term (current) use of aspirin; Z68.26 Body mass index [BMI] 26.0-26.9, adult

== ENCOUNTER → 2023-06-02 | Outpatient (CLI) | payer MEDICARE, OTHER ==
[~2023-06-02] MED LIST changes: +CIPRO500 MG PO
[2023-06-02 14:41] LABS: BILIRUBIN Negative (Negative); BLOOD Trace-Lysed (Negative); CLARITY Cloudy (Clear); COLOR Yellow (Yellow); GLUCOSE Negative (Negative); KETONE Negative (Negative); LEUKO ESTERASE 2+ (Negative); NITRITE Positive (Negative); SPECIFIC GRAVITY 1.015 (1.001-1.030); UROBILINOGEN 0.2 E.U./dl (0.0-1.0)
[2023-06-02 14:53] LABS: BACTERIA 4+; RBC 0-2 rbc/hpf (0-2); WBC 16-20 wbc/hpf (0-5)
== END | disposition home or self-care (01) ==
LOC: LAB 14:04
PROVIDERS: ATTEND Family Medicine
DX: N39.0 Urinary tract infection, site not specified (principal)

== ENCOUNTER → 2023-07-27 | Emergency (ER) | payer MEDICARE, OTHER ==
[~2023-07-27] MED LIST changes: +ATORVASTATIN CA40 M1 PO; +ATROVENT HFA12.9 GM INH; +DOXYCYCLINE HY100 M3 PO; +FLEET ENEMA EX230 M1 R; +FLUONAZOLE200 M1 PO; +FLUTICASONE-SA1 EAC4 INH; +GENTLE LAXATIVE10 MG R; +MILK OF MA400 MG/51 PO; +OMNICEF300 MG PO; +PROBIOTIC250 MG PO; +ZITHROMAX250 MG PO
[2023-07-27 18:37] LABS: BASO # 0.1 10*3/uL (0.0-0.1); BASO % 0.8 % (0.0-1.0); EOS # 0.1 10*3/uL (0.0-0.4); EOS % 0.7 % (1.0-4.0); LYMPH # 1.9 10*3/uL (1.3-4.4); LYMPH % 12.1 % (27.0-41.0); MEAN CELL VOLUME 94.3 fl (81.0-99.0); MEAN CORPUSCULAR HGB 28.6 pg (27.0-31.0); MEAN CORPUSCULAR HGB CONC 30.3 g/dl (33.0-37.0); MEAN PLATELET VOLUME 9.3 fl (9.6-12.3); MONO # 1.1 10*3/uL (0.1-1.0); MONO % 7.1 % (3.0-9.0); NEUT # 12.5 10*3/uL (2.3-7.9); NEUT % 78.8 % (47.0-73.0); PLATELET COUNT AUTOMATED 512 10*3/uL (130-400); RED CELL DISTRI WIDTH 16.1 % (0-14.5); WHITE BLOOD COUNT 15.9 10*3/uL (4.8-10.8)
[2023-07-27 18:51] LABS: ACT PARTIAL THROMBO TIME 26.8 SECONDS (20.0-32.1)
[2023-07-27 18:59] LABS: POTASSIUM 3.3 mmol/L (3.4-5.1)
[2023-07-27 23:32] LABS: BILIRUBIN Negative (Negative); BLOOD 2+ (Negative); CLARITY Turbid (Clear); COLOR Yellow (Yellow); GLUCOSE Negative (Negative); KETONE Trace (Negative); LEUKO ESTERASE 2+ (Negative); NITRITE Negative (Negative); PH 5.5 (4.5-8.0); UROBILINOGEN 0.2 E.U./dl (0.0-1.0)
[2023-07-27 23:47] LABS: RBC 31-40 rbc/hpf (0-2); WBC 41-50 wbc/hpf (0-5); YEAST 4+
[2023-07-27 23:48] LABS: BACTERIA TRACE
== END ==
LOC: ED 17:47
PROVIDERS: Emergency Medicine
DX: B37.49 Other urogenital candidiasis (principal); I25.2 Old myocardial infarction; K21.9 Gastro-esophageal reflux disease without esophagitis; F41.9 Anxiety disorder, unspecified; F32.A Depression, unspecified; E78.00 Pure hypercholesterolemia, unspecified; I11.0 Hypertensive heart disease with heart failure; I50.9 Heart failure, unspecified; J44.9 Chronic obstructive pulmonary disease, unspecified; Z90.710 Acquired absence of both cervix and uterus; Z90.49 Acquired absence of other specified parts of digestive tract; Z98.890 Other specified postprocedural states; Z79.899 Other long term (current) drug therapy

== ENCOUNTER 2023-08-14 21:08 | Emergency (ER) | payer MEDICARE, OTHER ==
[~2023-08-14] VITALS: Ht 160 cm; Wt 48.7 kg
[2023-08-14 22:11] LABS: BASO # 0.1 10*3/uL (0.0-0.1); BASO % 0.6 % (0.0-1.0); EOS # 0.5 10*3/uL (0.0-0.4); EOS % 4.4 % (1.0-4.0); HEMATOCRIT 33.7 % (37.0-47.0); LYMPH # 2.4 10*3/uL (1.3-4.4); LYMPH % 22.9 % (27.0-41.0); MEAN CORPUSCULAR HGB 27.3 pg (27.0-31.0); MEAN CORPUSCULAR HGB CONC 27.9 g/dl (33.0-37.0); MONO # 0.8 10*3/uL (0.1-1.0); MONO % 7.3 % (3.0-9.0); NEUT # 6.6 10*3/uL (2.3-7.9); NEUT % 64.4 % (47.0-73.0); PLATELET COUNT AUTOMATED 298 10*3/uL (130-400); RED BLOOD COUNT 3.44 10*6/uL (4.10-5.10); RED CELL DISTRI WIDTH 16.5 % (0-14.5); WHITE BLOOD COUNT 10.3 10*3/uL (4.8-10.8)
[2023-08-14 22:32] LABS: ALKALINE PHOSPHATASE 66 U/L (46-116); BUN 17 mg/dl (9-23); CHLORIDE 109 mmol/L (98-107); POTASSIUM 3.3 mmol/L (3.4-5.1); SGPT/ALT 11 U/L (5-49); TOTAL PROTEIN 5.3 gm/dL (6.0-8.0)
[2023-08-14 23:35] LABS: BILIRUBIN 2+ (Negative); BLOOD 2+ (Negative); CLARITY Turbid (Clear); COLOR Red (Yellow); GLUCOSE Negative (Negative); KETONE Negative (Negative)
[2023-08-14 23:36] LABS: LEUKO ESTERASE 3+ (Negative); NITRITE Positive (Negative); UROBILINOGEN 0.2 E.U./dl (0.0-1.0)
[2023-08-14 23:37] LABS: BACTERIA 2+; RBC TNTC rbc/hpf (0-2); WBC 41-50 wbc/hpf (0-5)
[2023-08-15] MEDS ORDERED: OMNICEF300 MG PO (07:03)
== END 2023-08-15 07:44 ==
LOC: ED 21:08
PROVIDERS: Emergency Medicine
DX: N39.0 Urinary tract infection, site not specified (principal); R31.9 Hematuria, unspecified; F03.90 Unspecified dementia, unspecified severity, without behavioral disturbance, psychotic disturbance, mood disturbance, and anxiety; I48.91 Unspecified atrial fibrillation; J44.9 Chronic obstructive pulmonary disease, unspecified; I11.0 Hypertensive heart disease with heart failure; I50.9 Heart failure, unspecified; E78.5 Hyperlipidemia, unspecified; E03.9 Hypothyroidism, unspecified; E44.0 Moderate protein-calorie malnutrition; Z90.711 Acquired absence of uterus with remaining cervical stump; Z90.49 Acquired absence of other specified parts of digestive tract; Z79.899 Other long term (current) drug therapy; Z79.2 Long term (current) use of antibiotics; Z79.82 Long term (current) use of aspirin

== ENCOUNTER 2023-12-24 11:42 | Emergency (ER) | payer MEDICARE, OTHER ==
[~2023-12-24] VITALS: Ht 152.4 cm; Wt 45.8 kg
[2023-12-24 12:13] LABS: BASO % 0.5 % (0.0-1.0); EOS # 0.1 10*3/uL (0.0-0.4); EOS % 1.6 % (1.0-4.0); HEMATOCRIT 26.7 % (37.0-47.0); LYMPH # 1.8 10*3/uL (1.3-4.4); LYMPH % 23.7 % (27.0-41.0); MEAN CELL VOLUME 93.7 fl (81.0-99.0); MEAN CORPUSCULAR HGB 26.3 pg (27.0-31.0); MEAN CORPUSCULAR HGB CONC 28.1 g/dl (33.0-37.0); MONO # 0.6 10*3/uL (0.1-1.0); MONO % 7.8 % (3.0-9.0); PLATELET COUNT AUTOMATED 339 10*3/uL (130-400); RED BLOOD COUNT 2.85 10*6/uL (4.10-5.10); RED CELL DISTRI WIDTH 15.2 % (0-14.5); WHITE BLOOD COUNT 7.6 10*3/uL (4.8-10.8)
[2023-12-24 12:19] LABS: BILIRUBIN 1+ (Negative); BLOOD 1+ (Negative); CLARITY Turbid (Clear); COLOR Red (Yellow); GLUCOSE Negative (Negative); KETONE Negative (Negative); LEUKO ESTERASE 3+ (Negative); NITRITE Positive (Negative); SPECIFIC GRAVITY 1.015 (1.001-1.030); UROBILINOGEN 0.2 E.U./dl (0.0-1.0)
[2023-12-24 12:38] LABS: POTASSIUM 4.6 mmol/L (3.4-5.1); TOTAL PROTEIN 6.6 gm/dL (6.0-8.0)
[2023-12-24 12:41] LABS: RBC TNTC rbc/hpf (0-2); WBC TNTC wbc/hpf (0-5)
[2023-12-24] MEDS ORDERED: CIPRO500 MG PO (13:13)
== END 2023-12-24 17:41 | disposition home or self-care (01) ==
LOC: ED 11:42
PROVIDERS: Internal Medicine
DX: N39.0 Urinary tract infection, site not specified (principal); K21.9 Gastro-esophageal reflux disease without esophagitis; F41.9 Anxiety disorder, unspecified; F32.A Depression, unspecified; E78.00 Pure hypercholesterolemia, unspecified; I11.0 Hypertensive heart disease with heart failure; I25.2 Old myocardial infarction; I50.9 Heart failure, unspecified; J44.9 Chronic obstructive pulmonary disease, unspecified; Z90.710 Acquired absence of both cervix and uterus; Z90.49 Acquired absence of other specified parts of digestive tract; Z98.890 Other specified postprocedural states